=== PATIENT | female | born 1955 | race Caucasian/White ===

== ENCOUNTER 2021-04-17 16:59 | Inpatient (IN) ==
--- NOTE | 2021-04-17 17:52 | Emergency Department Note ---
Lower Extremity Injury HPI General Chief Complaint: Extremity Injury, Lower Stated Complaint: left leg pain Time Seen by Provider: 04/17/21 17:18 Source: patient Mode of arrival: EMS Limitations: no limitations History of Present Illness HPI Narrative: Narrative: Patient is a 66-year-old female who comes into the emergency department today with complaint of low back pain with radiculopathy symptoms traveling down the posterior side of her left leg. Patient reports that she fell at home onto concrete March 26, 2021 he went to [facility], and she reports that x-rays were obtained. She indicates that there is no fracture. She states that she received an injection of morphine and sent home with 2 pain pills that she already took. She continues to have sharp pain at the low back area with radiating pain following the L5 dermatome on the left side. She has not had any weakness. She denies any loss of control of bowel or bladder. Pain is aggravated with ambulation, flexion, and extension. Related Data Home Medications Medication Instructions Recorded Confirmed cholecalciferol (vitamin D3) MISCELLANE 12/24/15 02/03/16 citalopram 40 mg tablet 40 mg PO QDAY tab 12/24/15 02/03/16 hydroxychloroquine 200 mg tablet 200 mg PO QDAY tab 12/24/15 02/03/16 levothyroxine 75 mcg capsule 75 mcg PO QDAY 12/24/15 02/03/16 lisinopril 20 1 tab PO QDAY 12/24/15 02/03/16 mg-hydrochlorothiazide 25 mg tablet pantoprazole 20 mg tablet,delayed 20 mg PO QDAY 12/24/15 02/03/16 release promethazine 25 mg tablet 25 mg PO TID tab 12/24/15 02/03/16 tramadol 50 mg tablet 50 mg PO QDAY PRN tab 02/03/16 02/03/16 Allergies Allergy/AdvReac Type Severity Reaction Status Date / Time codeine Allergy Unknown Vomiting Verified 02/03/16 13:55 Review of Systems ROS ROS Narrative: Narrative: All systems ED: reviewed and negative except as stated. [facility] Narrative Patient History Narrative: Narrative: Medical/Surgical/Family History All Active Problems (Updated 04/17/21 @ 19:33 by Quentin Keith MD) Fracture of femoral neck, left (Acute) Arthralgia (Chronic) Alopecia (Chronic) Antinuclear factor positive (Chronic) Yeast infection of the vagina (Chronic) UTI (urinary tract infection) (Chronic) Gastroparesis (Chronic) White coat hypertension (Chronic) Systemic lupus erythematosus (Chronic) Rheumatoid arthritis (Chronic) Osteoporosis (Chronic) GERD (gastroesophageal reflux disease) (Chronic) Hypothyroidism (Chronic) Electrolyte imbalance (Chronic) Vitamin D deficiency (Chronic) Anxiety (Chronic) Depression (Chronic) Rash (Chronic) Leg weakness, bilateral (Chronic) Leg pain, bilateral (Chronic) Medical History (Updated 04/17/21 @ 19:33 by Quentin Keith MD) Alopecia Antinuclear factor positive Anxiety Arthralgia Depression Electrolyte imbalance Gastroparesis GERD (gastroesophageal reflux disease) Hypothyroidism Leg pain, bilateral Leg weakness, bilateral Osteoporosis Rash Rheumatoid arthritis Systemic lupus erythematosus UTI (urinary tract infection) Vitamin D deficiency White coat hypertension Yeast infection of the vagina Surgical History (Updated 09/23/20 @ 08:19 by [employer] [place]) History of section 1975, 1981, 1982 & 1988 Family History (Updated 12/24/15 @ 12:36 by Ya Hull) Mother Muscular wasting and disuse atrophy Father Muscular wasting and disuse atrophy Unknown Diabetes mellitus Alcoholism Social History Smoking Status: Never smoker Alcohol Intake Frequency: holiday/special occasion only Substance Use: does not use Exam Narrative Narrative: Narrative: General Limitations: no limitations General appearance: Present alert and in no apparent distress Head Head: Present atraumatic, normocephalic and normal inspection Eye Eye: Present normal appearance and PERRL; Absent scleral icterus ENT ENT: Present mucous membranes moist Neck Neck: Present full ROM; Absent tenderness Chest Chest: Present symmetric chest wall rise Respiratory Respiratory: Present normal lung sounds bilaterally; Absent respiratory distress, rales/crackles, wheezes, stridor, accessory muscle use and prolonged expiratory phase Cardiovascular Cardiovascular: Present regular rate and normal rhythm; Absent systolic murmur and diastolic murmur Adbominal Abdominal: Present soft; Absent distention and tenderness Extremities Extremities: Present normal inspection, full ROM, normal capillary refill and other (Pedal pulses 2+ bilaterally. Capillary refill less than 2 seconds.); Absent tenderness, pedal edema, pretibial edema, joint swelling, calf tenderness, cyanosis and clubbing Back Back: Present normal inspection, full ROM, tenderness (Tenderness with palpation around L3-L5 paraspinous muscles and the lumbar spine area. No ecchymosis or erythema.) and straight leg raise (L); Absent straight leg raise (R) Neurological Neurological: Present alert, oriented X3, CN II-XII intact and other (No clonus .); Absent motor sensory deficit Expanded Neurological Motor strength - LUE: 5/5 Motor strength - RUE: 5/5 Motor strength - LLE: 4/5 Motor strength - RLE: 5/5 SENSORY EXAM LOWER EXTREMITY: Normal: light touch SPINAL CORD FUNCTION: Absent saddle anesthesia Coma Scale Eye Opening: Spontaneous Coma Scale Motor Response: Obeys Commands Coma Scale Verbal Response: Oriented Coma Scale Total: 15 Skin Skin: Present warm (WNL), dry and normal color Course Vital Signs Vital signs: Vital Signs Temperature 98.1 F 04/17/21 17:03 Pulse Rate 98 H 04/17/21 17:03 Respiratory Rate 18 04/17/21 17:03 Blood Pressure 161/84 04/17/21 17:03 Pulse Oximetry (%) 97 04/17/21 17:03 Temperature 98.1 F 04/17/21 17:03 Pulse Rate 86 04/17/21 18:52 Respiratory Rate 18 04/17/21 17:03 Blood Pressure 129/81 04/17/21 17:46 Pulse Oximetry (%) 93 04/17/21 18:52 MDM MDM Narrative Medical decision making narrative: Narrative: Patient is a 66-year-old female with complaint of lower back pain and radiation down the left hip and leg. Patient had fell March 26, 2021 and went to [facility]. She came in to [facility] emergency department today as she feels that her pain is still continuing, and felt that she needed additional imaging for her back. I first proceeded with a CT scan of her lumbar spine without contrast for further evaluation, and on review of her CT scan I was able to see suspicious of fracture at the left hip. Ordered a left hip x- ray. The left hip x-ray shows that a fracture of the left femoral neck that is displaced with angulation. I was able to contact Dr. Collins who is on-call for orthopedics, and Dr. Collins would like patient admitted to [facility] with the hospitalist to admit the patient, and he would like patient to be n.p.o. at midnight for surgery tomorrow. I was able to speak with Dr. Keith who is the hospitalist on today. He agrees to admit the patient to [facility]. Patient's chest x-ray was ordered for preop surgical, and chest x-ray is normal. Patient has an EKG today that shows normal sinus rhythm with no acute coronary syndrome finding. Patient received 1 mg of IM Dilaudid upon arrival to the emergency department. Her pain was controlled. She is resting comfortably in room T3. She will be admitted to [facility]. Lab Data Result diagrams: 04/17/21 19:13 04/17/21 19:13 Radiology Data Radiology results narrative: Ordering Physician: Gurdeep Molina Date of Service: 04/17/21 Procedure(s): XR hip LT comp 2VW Accession Number(s): [id number] HISTORY: Fell with left hip pain FINDINGS: there is an acute transversely oriented fracture at the base the neck, where it transitions to the trochanters. There is moderate varus angulation. The femoral head remains normally aligned with the acetabulum. No other fracture is present. There is a sclerotic intramedullary lesion in the intertrochanteric region of the proximal left femur. It measures 1.6 x 2.6 cm. Fracture does not extend through this lesion. IMPRESSION: Fractured left femoral neck with moderate angulation deformity. Sclerotic intramedullary lesion in the intertrochanteric region. This is more likely benign than malignant. Enchondroma is suspected. Interpreted and Authenticated by: Juan Díaz 04/17/21 EKG Data EKG #1: EKG attestation: Yes There are no EKG findings of acute coronary syndrome and Yes This EKG will be read by digital traffic coordinator EKG shows normal: sinus rhythm Rate: normal Discharge Plan Patient/Caregiver Discharge Instructions Pt seen by MORTGAGE FUNDER/PA only: No Clinical Impression: Fracture of femoral neck, left Patient Disposition: Xfer As Inpt ([facility]) Follow up with: Kevin Santoyo ARNP [Primary Care Provider] - Prescriptions: No Action citalopram 40 mg tablet 40 mg PO QDAY RF: 0 pantoprazole 20 mg tablet,delayed release (DR/EC) 20 mg PO QDAY RF: 0 promethazine 25 mg tablet 25 mg PO TID RF: 0 lisinopril-hydrochlorothiazide 20-25 mg tablet 1 tab PO QDAY RF: 0 hydroxychloroquine 200 mg tablet 200 mg PO QDAY RF: 0 levothyroxine 75 mcg capsule 75 mcg PO QDAY RF: 0 cholecalciferol (vitamin D3) MISCELLANE RF: 0 tramadol 50 mg tablet 50 mg PO QDAY PRNRF: 0
[2021-04-17] MEDS ORDERED: HYDROmorphone 1 MG/ML SYRINGE IM ONE (17:53)
--- NOTE | 2021-04-17 19:02 | XRay Report ---
HISTORY: Fell with left hip pain FINDINGS: there is an acute transversely oriented fracture at the base the neck, where it transitions to the trochanters. There is moderate varus angulation. The femoral head remains normally aligned with the acetabulum. No other fracture is present. There is a sclerotic intramedullary lesion in the intertrochanteric region of the proximal left femur. It measures 1.6 x 2.6 cm. Fracture does not extend through this lesion. IMPRESSION: Fractured left femoral neck with moderate angulation deformity. Sclerotic intramedullary lesion in the intertrochanteric region. This is more likely benign than malignant. Enchondroma is suspected. Interpreted and Authenticated by: Juan Díaz 04/17/21
--- NOTE | 2021-04-17 19:06 | Cat Scan Report ---
History: Fell with low back pain TECHNIQUE: The spine was imaged without contrast in axial plane at 2.5 mm intervals. Sagittal and coronal reformats were created. The radiation exposure was limited using dose reduction technology. FINDINGS: No fracture or spondylolisthesis are present. There has 4 mm retrolisthesis of L1 posterior L2. Moderate disc space narrowing is present at T11-12 and T12-L1 with moderate narrowing at L1-2. There are posterior bulges and arthritis in the facet joints resulting in moderate stenosis of the central canal at L2-3, L3-4 and L4-5. There is also severe arthritis in the facets bilaterally at L5-S1 but there is no central canal stenosis at that level. There is mild stenosis of the neural foramina bilaterally at L3-4 and L4-5. No paraspinal mass or hematoma are present. IMPRESSION: No fracture Spinal canal stenosis at L2-3 L3-4 and L4-5 due to bulging discs and arthritis in the facets Gurdeep Molina was called with the report Interpreted and Authenticated by: Juan Díaz 04/17/21
--- NOTE | 2021-04-17 19:06 | XRay Report ---
HISTORY: Preop for repair fractured left hip FINDINGS: The lungs are clear. The heart, mediastinum, genevieve and pleura are normal. IMPRESSION: Normal chest. Interpreted and Authenticated by: Juan Díaz 04/17/21
[2021-04-17] MEDS ORDERED: traMADol 50 MG TABLET PO PRN ×2 (19:27→22:07)
--- NOTE | 2021-04-17 19:34 | Internal Med History&Physical ---
HPI History of Present Illness Patient information: Note initiated : 04/17/21 at 7:29 pm Service Date, if different from initiated Date: [] Patient: Paula Hollis a 66 y/o F admitted on for left leg pain. Chief Complaint: [left femoral neck fracture] History of present illness: Ms. Hollis is a 66 year old F history of lupus, rheumatoid arthritis, GERD, hypothyroidism, depressions, presenting with left hip fractures. She had a 4 March 26 and ever since she presented to [facility] ED multiple times and no diagnosis of any bone fractures was made. Today she presented to our ED for continuation of pain and x-ray of the hip showing that she has a left femoral neck fracture. Orthopedic surgeons Dr. Collins was consulted who agreed to take patient to the OR on April 18 for surgical fixation. Patient is currently denying of any pain after Dilaudid being given prior to interview. Constitutional Constitutional: Absent chills, excessive sweating, fatigue, fever(s) and weakness EENT Eyes: Absent blurry vision, change in vision, loss of vision and other visual disturbances Ears: Absent decreased hearing and tinnitus Nose, mouth and throat: Absent abnormal hearing, dry mouth, headache(s), nasal congestion and sore throat Cardiovascular Cardiovascular: Absent chest pain, chest pain at rest, edema, irregular heart rhythm and palpatations Respiratory Respiratory: Absent cough, dyspnea and wheezing Gastrointestinal Gastrointestinal: Absent abdominal pain, constipation, diarrhea, nausea and vomiting Musculoskeletal Musculoskeletal: Absent back pain, deformity, limited range of motion, muscle cramps, muscle weakness and numbness Integumentary Integumentary: Absent lesions, rash and wounds Neurological Neurological: Absent focal weakness, headache(s) and numbness Psychiatric Psychiatric: Absent anxiety, depression and hallucinations PFSH PFSH All Active Problems (Updated 04/17/21 @ 19:33 by Quentin Keith MD) Fracture of femoral neck, left (Acute) Arthralgia (Chronic) Alopecia (Chronic) Antinuclear factor positive (Chronic) Yeast infection of the vagina (Chronic) UTI (urinary tract infection) (Chronic) Gastroparesis (Chronic) White coat hypertension (Chronic) Systemic lupus erythematosus (Chronic) Rheumatoid arthritis (Chronic) Osteoporosis (Chronic) GERD (gastroesophageal reflux disease) (Chronic) Hypothyroidism (Chronic) Electrolyte imbalance (Chronic) Vitamin D deficiency (Chronic) Anxiety (Chronic) Depression (Chronic) Rash (Chronic) Leg weakness, bilateral (Chronic) Leg pain, bilateral (Chronic) Medical History (Updated 04/17/21 @ 19:33 by Quentin Keith MD) Alopecia Antinuclear factor positive Anxiety Arthralgia Depression Electrolyte imbalance Gastroparesis GERD (gastroesophageal reflux disease) Hypothyroidism Leg pain, bilateral Leg weakness, bilateral Osteoporosis Rash Rheumatoid arthritis Systemic lupus erythematosus UTI (urinary tract infection) Vitamin D deficiency White coat hypertension Yeast infection of the vagina Surgical History (Updated 09/23/20 @ 08:19 by [employer] [place]) History of section 1975, 1981, 1982 & 1988 Family History (Updated 12/24/15 @ 12:36 by Ya Hull) Mother Muscular wasting and disuse atrophy Father Muscular wasting and disuse atrophy Unknown Diabetes mellitus Alcoholism Social History marital status: single occupational status: retired physical activity: none alcohol intake frequency: holiday/special occasion only substance use type: does not use MEDS/ALLERGIES Home Medications and Allergies Home Medications Medication Instructions Recorded Confirmed Type cholecalciferol (vitamin D3) MISCELLANE 12/24/15 02/03/16 History citalopram 40 mg tablet 40 mg PO QDAY tab 12/24/15 02/03/16 History hydroxychloroquine 200 mg tablet 200 mg PO QDAY tab 12/24/15 02/03/16 History levothyroxine 75 mcg capsule 75 mcg PO QDAY 12/24/15 02/03/16 History lisinopril 20 1 tab PO QDAY 12/24/15 02/03/16 History mg-hydrochlorothiazide 25 mg tablet pantoprazole 20 mg tablet,delayed 20 mg PO QDAY 12/24/15 02/03/16 History release promethazine 25 mg tablet 25 mg PO TID tab 12/24/15 02/03/16 History tramadol 50 mg tablet 50 mg PO QDAY PRN tab 02/03/16 02/03/16 History Allergies Allergy/AdvReac Type Severity Reaction Status Date / Time codeine Allergy Unknown Vomiting Verified 02/03/16 13:55 EXAM Constitutional Vitals: Temp Pulse Resp BP Pulse Ox 36.7 C 86 18 129/81 93 04/17/21 17:03 04/17/21 18:52 04/17/21 17:03 04/17/21 17:46 04/17/21 18:52 General appearance: cooperative and no acute distress Head Head exam: Present atraumatic and normocephalic Eye Eye exam: Present EOMI and PERRL ENT ENT exam: Present mucous membranes moist, normal exam and normal external ear exam Neck Neck exam: Present normal inspection; Absent lymphadenopathy, tenderness and thyromegaly Respiratory Respiratory exam: Absent accessory muscle use, respiratory distress and wheezes Cardiovascular Cardiovascular exam: Present normal rate and rhythm; Absent JVD GI/Abdominal GI/Abdominal exam: Present normal bowel sounds and soft; Absent organomegaly and tenderness Extremities Exam Extremities exam: Present normal capillary refill and tenderness; Absent full ROM and normal inspection Additional comments: Left hip ROMs limited by pain Left lateral hip tenderness to palpation. Neurological Exam Neurological exam: Present alert, CN II-XII intact and oriented X3; Absent motor sensory deficit Psychiatric Psychiatric exam: Present normal affect and normal mood; Absent anxious and depressed Skin Skin exam: Present dry and intact DATA Data Completed and Pending Labs: Labs from last 24 hours 04/17/21 04/17/21 19:13 19:13 WBC Pending RBC Pending Hgb Pending Hct Pending MCV Pending MCH Pending MCHC Pending RDW Pending Plt Count Pending MPV Pending Neut % (Auto) Pending Sodium Pending Potassium Pending Chloride Pending Carbon Dioxide Pending Anion Gap Pending BUN Pending Creatinine Pending GFR Calculation Pending Glucose Pending Calcium Pending Total Bilirubin Pending AST Pending ALT Pending Alkaline Phosphatase Pending Total Protein Pending Albumin Pending Globulin Pending Albumin/Globulin Ratio Pending A/P Assessment and plan (1) Systemic lupus erythematosus: Status: Chronic (2) Rheumatoid arthritis: Status: Chronic (3) GERD (gastroesophageal reflux disease): Status: Chronic (4) Hypothyroidism: Status: Chronic (5) Depression: Status: Chronic (6) Fracture of femoral neck, left: Status: Acute Narrative A/P Narrative: Assessment and Plans: 1. Left femoral neck fracture: Admit to inpatient med surg Dr. Collins notified, will take her to OR on 04/18 Bedrest for now Regular diet thne NPO after midnight Tramadol PRN moderate pain Dilaudid IV PRN severe pain Physical therapy Occupational therapy 2. h/o Depression: Citalopram 3. GERD: Continue oral PPI 4. h/o SLE and rheumatoid arthritis: Plaquenil 5. Hypothyroidism: Continue oral thyroid replacement therapy GI ppx: Continue oral PPI DVT ppx: SCDs Code status: Full Prognosis: Stable Disposition: inpatient med surg Time Spent With Patient Time: Total time spent is greater than 50% in coordination of care (as documented) at patient's floor/unit and/or counseling patient: Total time spent with greater than 50% in coordination of care (as documented) at patient's floor/unit and/or counseling patient:: 25 - 35 minutes
[2021-04-17 19:44] LABS: Basophils # (Auto) 0.02 K/mcL (0.00-0.30); Basophils % (Auto) 0.2 % (0.0-2.0); Eosinophils # (Auto) 0.04 K/mcL (0.00-0.70); Eosinophils % (Auto) 0.4 % (0.0-7.0); Hemoglobin 11.3 g/dL (11.2-15.7); Lymphocytes # (Auto) 1.64 K/mcL (1.50-4.80); Lymphocytes % (Auto) 18.3 % (15.5-49.0); Mean Cell Volume 91.4 fL (80.0-100.0); Mean Corpuscular HGB Conc 34.2 g/dL (31.0-36.0); Mean Platelet Volume 8.5 fL (7.4-10.4); Monocytes # (Auto) 0.98 K/mcL (0.10-0.90); Monocytes % (Auto) 10.9 % (1.0-12.0); Neutrophils % (Auto) 70.2 % (38.0-78.0); Platelet Count 435 K/mcL (140-440); RBC 3.61 M/mcL (3.59-5.38); Red Cell Distribution Width 14.3 % (11.5-14.5)
[2021-04-17 20:15] LABS: ALT/SGPT 17 U/L (<40); AST/SGOT 19 U/L (<32); Albumin 3.9 gm/dL (3.2-5.2); Albumin/Globulin Ratio 1.2 (1.0-2.3); Alkaline Phosphatase 78 U/L (39-117); Bilirubin,Total 0.5 mg/dL (0.1-1.0); Blood Urea Nitrogen 28 mg/dL (8-23); Calcium 8.9 mg/dL (8.6-10.4); Carbon Dioxide 25 mmol/L (22-30); Chloride 93 mmol/L (96-108); Globulin 3.3 gm/dL (2.2-3.7); Glomerular Filtration Rate 59; Glucose 106 mg/dL (70-105)
[2021-04-17] MEDS ORDERED: PROMETHAZINE 25 MG TABLET PO SCH (21:00)
[2021-04-17] MEDS ORDERED: ACETAMINOPHEN 325 MG TABLET PO PRN (22:07)
[2021-04-17] MEDS: 0.9 % SODIUM CHLORIDE 1,000 ML IV SCH (22:22)
[2021-04-17] MEDS: 0.9 % SODIUM CHLORIDE 10 ML SYRINGE IV SCH (22:25)
[2021-04-18] MEDS: DOCUSATE SODIUM 100 MG CAPSULE PO SCH ×5 (00:02→21:30)
[2021-04-18] MEDS: SENNOSIDES 1 TABLET PO SCH ×2 (00:02→21:28)
[2021-04-18] MEDS: HYDROmorphone 1 MG/ML SYRINGE IV PRN ×3 (00:02→15:25)
[2021-04-18] MEDS ORDERED: HYDROmorphone 1 MG/ML SYRINGE ONE ×2 (00:04→04:57)
[2021-04-18] MEDS: CYCLOBENZAPRINE 10 MG TABLET PO PRN ×2 (00:35→21:42)
[2021-04-18] MEDS: 0.9 % SODIUM CHLORIDE 10 ML SYRINGE IV SCH ×3 (04:58→21:30)
[2021-04-18] MEDS ORDERED: SCOPOLAMINE 1 PATCH PATCH TOPICAL PRN (07:00)
[2021-04-18] MEDS ORDERED: IPRATROPIUM/ALBUTEROL 3 ML AMPUL.NEB NEB PRN ×2 (07:00→10:22)
[2021-04-18 07:25] LABS: Appearance,Urine CLEAR (Clear); Bilirubin,Urine Negative (Negative); Color,Urine YELLOW; Culture Indicated,Urine No; Glucose,Urine (UA) Negative (Negative); Ketones,Urine Negative (Negative); Leukocyte Esterase,Urine Negative /ug (Negative); Mucus,Urine FEW /hpf; Nitrate,Urine Negative (Negative); Protein,Urine Negative (Negative); Specific Gravity,Urine 1.019 (1.000-1.035); Urine Blood 0.03 mg/dL (Negative); Urine Hyaline Cast 3 /lph (0-2); Urine RBC 22 /hpf (0-3); Urine Squamous Epithelial Cell < 1 /hpf (0-4); Urine WBC 6 /hpf (0-4); Urobilinogen,Urine Negative
[2021-04-18] MEDS: HYDROXYCHLOROQUINE 200 MG TABLET PO SCH (08:31)
[2021-04-18] MEDS: HYDROCHLOROTHIAZIDE 25 MG TABLET PO SCH (08:31)
[2021-04-18] MEDS: CITALOPRAM 20 MG TABLET PO SCH (08:31)
[2021-04-18] MEDS: LISINOPRIL 20 MG TABLET PO SCH (08:32)
[2021-04-18] MEDS ORDERED: POLYETHYLENE GLYCOL 3350 17 GM PACKET PO PRN (08:41)
[2021-04-18] MEDS ORDERED: BENZOCAINE/MENTHOL 1 LOZENGE PO PRN (08:41)
[2021-04-18] MEDS ORDERED: MAGNESIUM HYDROXIDE 30 ML ORAL.SUSP PO PRN (08:41)
[2021-04-18] MEDS ORDERED: METHOCARBAMOL 1,000 MG/10 ML VIAL IV PRN ×2 (08:52→10:22)
[2021-04-18] MEDS ORDERED: morphine 4 MG/ML VIAL IV PRN (08:52)
[2021-04-18] MEDS ORDERED: HYDROXYCHLOROQUINE 200 MG TABLET PO SCH (09:00)
[2021-04-18] MEDS ORDERED: CITALOPRAM 40 MG PO SCH (09:00)
[2021-04-18] MEDS ORDERED: ceFAZolin 2 GM in DEXTROSE 5% IN WATER 50 ML IV SCH ×2 (09:00)
[2021-04-18] MEDS ORDERED: LEVOTHYROXINE 75 MCG PO SCH (09:00)
[2021-04-18] MEDS ORDERED: LISINOPRIL HYDROCHLOROTHIAZIDE PO SCH (09:00)
[2021-04-18] MEDS ORDERED: NON FORMULARY MEDICATION 1 DOSE MISCELL (Lisinopril-Hydrochlorothiazide 20-25 mg tablet) PO SCH (09:00)
[2021-04-18] MEDS ORDERED: MAGNESIUM SULFATE 2 GM/50 ML BAG IV ONE (09:10)
[2021-04-18] MEDS ORDERED: KETAMINE 50 MG/ML Syringe (ANEST) IV ONE (09:10)
[2021-04-18] MEDS ORDERED: GLYCOPYRROLATE 0.2 MG/ML VIAL IV ONE (09:10)
[2021-04-18] MEDS ORDERED: ONDANSETRON 4 MG/2 ML VIAL ONE (09:10)
[2021-04-18] MEDS ORDERED: TRANEXAMIC ACID 1,000 MG/10 ML VIAL ONE (09:10)
[2021-04-18] MEDS ORDERED: LIDOCAINE HCL/PF 100 MG/5 ML SYRINGE IV ONE (09:10)
[2021-04-18] MEDS ORDERED: fentaNYL 100 MCG/2 ML VIAL IV ONE (09:10)
[2021-04-18] MEDS ORDERED: PROPOFOL 200 MG/20 ML VIAL IV ONE (09:10)
[2021-04-18] MEDS ORDERED: PHENYLephrine 1 MG/10 ML SYRINGE (ANEST) ONE (09:10)
[2021-04-18] MEDS ORDERED: DEXAMETHASONE 10 MG/ML VIAL ONE (09:10)
[2021-04-18] MEDS ORDERED: MIDAZOLAM 2 MG/2 ML VIAL ONE (09:10)
--- NOTE | 2021-04-18 10:14 | Internal Med Progress Note ---
SUBJECTIVE Subjective Patient information: Note initiated : 04/18/21 at 10:11 am Service Date, if different from initiated Date: [] Patient: Paula Hollis 66 y/o F admitted on 04/17/21 for left leg pain. Chief Complaint: [Left femoral neck fracture] Interval history: History of present illness: Ms. Hollis is a 66 year old F history of lupus, rheumatoid arthritis, GERD, hypothyroidism, depressions, presenting with left hip fractures. She had a 4 March 26 and ever since she presented to [facility] ED multiple times and no diagnosis of any bone fractures was made. Today she presented to our ED for continuation of pain and x-ray of the hip showing that she has a left femoral neck fracture. Orthopedic surgeons Dr. Collins was consulted who agreed to take patient to the OR on April 18 for surgical fixation. Patient is currently denying of any pain after Dilaudid being given prior to interview. 04/18: Surgery today morning by Dr. Collins. Subjective not obtained due to the fact that patient is currently in the OR. Constitutional Vitals: Vital Signs Temp Pulse Resp BP Pulse Ox 36.1 C L 84 20 125/75 93 04/18/21 07:09 04/18/21 07:09 04/18/21 07:09 04/18/21 07:09 04/18/21 07:09 Period Temp Pulse Resp BP Sys/Hurley Pulse Ox Last 24 Hr 36.1 C-36.7 C 82-98 16-20 107-161/56-84 90-97 Intake and Output 04/17/21 04/18/21 04/18/21 21:59 05:59 13:59 Intake Total 50 Output Total 950 Balance -950 50 Weight 63.503 kg 70.534 kg Intake & Output: Intake & Output 04/17/21 04/18/21 04/18/21 21:59 05:59 13:59 Intake Total 50 Output Total 950 Balance -950 50 Weight 63.503 kg 70.534 kg Intake: IV 50 Ancef 2 gm In Dextrose 5% in 50 Water 50 ml @ 100 mls/hr IV PREOP [facility] Rx#:[id number] Output: Urine Catheter Amount 950 Other: Urine Appearance Clear Uretheral (Duran) Clear Clear Urine Color Bright Yellow Uretheral (Duran) Pale Bright Yellow Urine Odor Normal Uretheral (Duran) Normal Exam: Defer OBJ DATA Labs CBC & Chem 7: 04/17/21 19:13 04/17/21 19:13 Labs: Abnormal Lab Results 04/18/21 04/17/21 04/17/21 00:10 19:13 19:13 Hct 33.0 L [place] # (Auto) 0.98 H Sodium 131 L Chloride 93 L BUN 28 H Glucose 106 H Urine RBC 22 H Urine WBC 6 H Hyaline Casts 3 H Urine Mucus Few A Meds: Medications Acetaminophen (Acetaminophen 325 Mg Tablet) 650 mg PO Q6HP PRN; Protocol PRN Reason: Per Pain Protocol/Fever > 101 Hydrocodone Bitart/Acetaminophen (Hydrocodone/Apap 7.5/325mg Tablet) 0 tab PO Q4HP PRN; Protocol PRN Reason: Per Pain Protocol Albuterol/Ipratropium (Ipratropium/Albuterol 3 Ml Ampul.Neb) 3 ml NEB ONCE PRN PRN Reason: Shortness Of Breath Stop: 04/18/21 15:00 Cefazolin Sodium (Cefazolin 1 Gm Vial) 2 gm IV Q8H [facility] Stop: 04/19/21 01:01 Citalopram Hydrobromide (Citalopram 20 Mg Tablet) 40 mg PO DAILY [facility] Last Admin: 04/18/21 08:31 Dose: 40 mg Documented by: Cyclobenzaprine HCl (Cyclobenzaprine 10 Mg Tablet) 10 mg PO Q6HP PRN PRN Reason: Muscle Spasm Last Admin: 04/18/21 00:35 Dose: 10 mg Documented by: Docusate Sodium (Docusate Sodium 100 Mg Capsule) 100 mg PO BID [facility] Last Admin: 04/18/21 07:56 Dose: Not Given Documented by: Docusate Sodium (Docusate Sodium 100 Mg Capsule) 100 mg PO BID [facility] Enoxaparin Sodium (Enoxaparin 30 Mg/0.3 Ml Syringe) 30 mg SQ BID [facility] Hydrochlorothiazide (Hydrochlorothiazide 25 Mg Tablet) 25 mg PO DAILY [facility] Last Admin: 04/18/21 08:31 Dose: 25 mg Documented by: Hydromorphone HCl (Hydromorphone 1 Mg/Ml Syringe) 1 mg IV Q2HP PRN; Protocol PRN Reason: Per Pain Protocol Last Admin: 04/18/21 04:57 Dose: 1 mg Documented by: Hydroxychloroquine Sulfate (Hydroxychloroquine 200 Mg Tablet) 200 mg PO QDAY [facility] Last Admin: 04/18/21 08:31 Dose: 200 mg Documented by: Sodium Chloride (Sodium Chloride 0.9%) 1,000 mls @ 100 mls/hr IV .Q10H [facility] Last Admin: 04/17/21 22:22 Dose: 100 mls/hr Documented by: Cefazolin Sodium 2 gm/ (Dextrose) 50 mls @ 100 mls/hr IV PREOP [facility]; Protocol Stop: 04/18/21 13:00 Last Infusion: 04/18/21 09:45 Dose: Infused Documented by: Lactated Ringer's (Lactated Ringers) 1,000 mls @ 75 mls/hr IV .[id number] [facility] Ketorolac Tromethamine (Ketorolac 15 Mg/Ml Vial) 15 mg IV Q6HP PRN; Protocol PRN Reason: Per Pain Protocol Stop: 04/20/21 08:54 Levothyroxine Sodium (Levothyroxine 75 Mcg Tablet) 75 mcg PO QAMAC [facility] Lisinopril (Lisinopril 20 Mg Tablet) 20 mg PO DAILY [facility] Last Admin: 04/18/21 08:32 Dose: 20 mg Documented by: Magnesium Hydroxide (Magnesium Hydroxide 30 Ml Oral.Susp) 30 ml PO BIDP PRN PRN Reason: Constipation Methocarbamol (Methocarbamol 1,000 Mg/10 Ml Vial) 750 mg IV Q6HP PRN PRN Reason: Muscle Spasm Morphine Sulfate (Morphine 4 Mg/Ml Vial) 0 mg IV Q1HP PRN; Protocol PRN Reason: Per Pain Protocol Non-Formulary Medication (Pantoprazole) 20 mg PO QDAY [facility] Ondansetron HCl (Ondansetron 4 Mg/2 Ml Vial) 4 mg IV Q6HP PRN PRN Reason: Nausea And Vomiting Polyethylene Glycol (Polyethylene Glycol 3350 17 Gm Packet) 17 gm PO DAILYP PRN PRN Reason: Constipation Scopolamine (Scopolamine 1 Patch Patch) 1 patch TOPICAL PREOP PRN PRN Reason: Nausea And Vomiting Stop: 04/18/21 15:00 Senna (Sennosides 1 Tablet) 2 tab PO HS [facility] Last Admin: 04/18/21 00:02 Dose: Not Given Documented by: Sodium Chloride (0.9 % Sodium Chloride 10 Ml Syringe) 10 ml IV Q8 [facility] Last Admin: 04/18/21 04:58 Dose: Not Given Documented by: Throat Lozenges (Benzocaine/Menthol 1 Lozenge) 1 lozenge PO PRN PRN PRN Reason: Sore Throat Tramadol HCl (Tramadol 50 Mg Tablet) 50 mg PO QDAY PRN; Protocol PRN Reason: PAIN LEVEL > 6 A/P Assessment and plan (1) Systemic lupus erythematosus: Status: Chronic (2) Rheumatoid arthritis: Status: Chronic (3) GERD (gastroesophageal reflux disease): Status: Chronic (4) Hypothyroidism: Status: Chronic (5) Depression: Status: Chronic (6) Fracture of femoral neck, left: Status: Acute Narrative A/P Narrative: Assessment and Plans: 1. Left femoral neck fracture: Stays in inpatient med surg Dr. Collins currently performing surgery on patient Activity after surgery as per Dr. Collins Tramadol PRN moderate pain Dilaudid IV PRN severe pain Physical therapy Occupational therapy 2. h/o Depression: Citalopram 3. GERD: Continue oral PPI 4. h/o SLE and rheumatoid arthritis: Plaquenil 5. Hypothyroidism: Continue oral thyroid replacement therapy GI ppx: Continue oral PPI DVT ppx: SCDs Code status: Full Prognosis: Stable Disposition: inpatient med surg Time Spent With Patient Time: Total time spent is greater than 50% in coordination of care (as documented) at patient's floor/unit and/or counseling patient: QUALITY VTE Deep Vein Thrombosis/Pulmonary Embolism Present on Admission: No
[2021-04-18] MEDS ORDERED: ePHEDrine 50 MG/ML AMPUL IV PRN (10:22)
[2021-04-18] MEDS ORDERED: MEPERIDINE 25 MG/ML VIAL IV PRN (10:22)
[2021-04-18] MEDS ORDERED: ONDANSETRON 4 MG/2 ML VIAL IV PRN (10:22)
[2021-04-18] MEDS ORDERED: ACETAMINOPHEN 1,000 MG/100 ML BAG IV ONE (10:22)
--- NOTE | 2021-04-18 10:26 | Discharge Plan ---
Discharge Plan Patient/Caregiver Discharge Instructions Activity: other Diet: Regular Diet Activity Restrictions/Additional Instructions: 50 percent WB left leg Prescriptions: New hydrocodone-acetaminophen 7.5-325 mg tablet 1 tab PO Q4H PRN (Reason: pain) Qty: 60 RF: 0 aspirin 81 mg tablet,chewable 81 mg PO BID Qty: 60 RF: 0 No Action citalopram 40 mg tablet 40 mg PO QDAY RF: 0 pantoprazole 20 mg tablet,delayed release (DR/EC) 20 mg PO QDAY RF: 0 promethazine 25 mg tablet 25 mg PO TIDP PRN (Reason: Nausea) RF: 0 lisinopril-hydrochlorothiazide 20-25 mg tablet 1 tab PO QDAY RF: 0 hydroxychloroquine 200 mg tablet 200 mg PO QDAY RF: 0 Follow Up Plan Follow up with: Kevin Santoyo ARNP [Primary Care Provider] - Patient Disposition: Home, Self-Care Discharge Orders: Discharge Order (Routine); Ordered 04/21/21 Ordered By: Greyson Collins
[2021-04-18] MEDS ORDERED: LACTATED RINGERS 1,000 ML IV SCH (10:30)
--- NOTE | 2021-04-18 10:31 | History and Physical Report ---
DATE OF ADMISSION: 04/17/2021 CHIEF COMPLAINT: Left hip pain. HISTORY OF PRESENT ILLNESS: Ms. Hollis is a 66-year-old female with a history of lupus, rheumatoid arthritis, GERD, hypothyroidism, and depression who presents to the emergency room yesterday with left hip pain. She was evaluated and found to have a left hip fracture. The injury originally occurred on the 03/10/2021. She obtained an x-ray yesterday that showed evidence of a left femoral neck fracture. Dr. Collins was consulted and upon evaluation today, the patient is resting comfortably, but does describe pain in her left hip. She denies any weakness, numbness, tingling or any other acute symptoms. REVIEW OF SYSTEMS: A 10-point system was reviewed and is negative except as documented in the HPI. PAST MEDICAL HISTORY: 1. Alopecia. 2. Antinuclear factor positive. 3. Anxiety. 4. Arthralgia. 5. Depression. 6. Vit D deficiency 7. Gastroparesis. 8. GERD. 9. Hypothyroidism. 10. Leg pain, bilateral. 11. Leg weakness, bilateral. 12. Osteoporosis. 13. Rash. 14. Rheumatoid arthritis. 15. Systemic lupus erythematosus. 16. UTI. PAST SURGICAL HISTORY: History of section. SOCIAL HISTORY: She is single. Her occupational status is retired. No tobacco use. MEDICATIONS: Cholecalciferol, citalopram, hydroxychloroquine, levothyroxine, lisinopril, pantoprazole, promethazine, tramadol. ALLERGIES: CODEINE. PHYSICAL EXAMINATION: HEAD: Atraumatic, normocephalic. EARS, EYES, NOSE AND THROAT: Eyes: Normal. Pupils are equal, round and reactive to light and accommodate. Ears: No discharge. Nose, [place] and Throat: Moist mucous membranes. NECK: Soft, supple. no lymphadenopathy, no tenderness. CHEST: Clear to auscultation bilaterally. CARDIAC: Regular rate and rhythm. No murmurs, rubs or gallops. ABDOMEN: Soft, no tenderness. No hepatosplenomegaly, no masses. MUSCULOSKELETAL: No pain in the back or legs but there is pain in the left hip with palpation. There is ecchymosis over the left hip and mild swelling. She is neurovascularly intact in the entire left lower extremity. No calf tenderness bilaterally. SKIN: Intact. No abrasions, infections or rashes. NEUROVASCULAR: Alert and oriented x 3. PSYCH: Normal affect. IMAGING: X-ray of the left hip revealed evidence of a basicervical hip fracture of the left femoral neck. ASSESSMENT: Displaced basicervical fracture of the left femoral neck. PLAN: We discussed treatment options including the risks and benefits of surgery and the patient has elected to proceed. We will plan on an a left hip hemiarthroplasty and the patient will be admitted after surgery for pain control and physical therapy. Discharge in the next 1 or 2 days and follow up with [facility] in the next 1 or 2 weeks for postoperative recheck. KT:andi Job ID: [id number] Doc ID: [id number] HAILEE Schneider
--- NOTE | 2021-04-18 10:44 | Operative Note ---
Operative Note Operative Note: Pre-operative diagnosis: Left hip basicervical femoral neck fracture Postoperative diagnosis: Same Procedure: Left hip short IM nail fixation Implants: Synthes short TFN 125 x11mm degrees with 85 mm cephalad screw and 34 mm distal locking screw Findings: Same as above, hypoplastic greater trochanter Complications: Nil Estimated Blood loss: 250 cc Assist: Leonardo Gordon DOS: April 18, 2021 Clinical note: The patient continues to suffer from the above mentioned diagnosis. She had a fall and had subsequent pain in her hip. She presented to an outside emergency department multiple times and there was no diagnosed with hip fracture. However when she presented to [facility] hip fracture was found. Surgery in the form of hip fixation with IM nailing was offered to the patient. Advantages of surgery include more rapid mobilization and bone healing. Risks of surgery such as heart attack stroke infection or implant failure was discussed also with the patient. Patient agreed to the procedure aware and understanding of the risk. H&P: The patient was met outside the operating room and symptoms were reviewed and a physical exam performed. The patient demonstrated ongoing symptoms and signs as previously discussed. Risk versus benefits of the procedure were again discussed. Patient wished to proceed with the surgery aware and understanding of these risks. The operative site was marked. Patient was brought into the operating room and prepped and draped in the usual fashion supine on traction table. Traction was applied and the hip was imaged with fluoroscopy. This confirmed good reduction of the fracture both in AP and lateral views. Began by making incision directly superior to the GT. A starting wire was introduced with the help of a starting awl directly on the tip of the GT using fluoroscopy to confirm trajectory. The canal was then opened with an entry reamer. A short IM nail of size scribed above was then introduced. We were unable to advance nail without reaming. Therefore a long guidewire was introduced and we reamed sequentially until 1.5 mm above the above selected nail size. This was advanced with a mallet tail the trajectory of the cephalad screw is in line with the center of the femoral head. Guidewire was introduced to the center of the femoral head within 25 mm combined on both AP and lateral views of the apex. Of the using the guide attached to the nail incision was made on the lateral femur, the lateral femoral cortex opened through the trocar, and the femoral neck was drilled in the usual fashion. Cephalad screw was then inserted through the trocar. Again using the guide a distal locking screw was inserted in the usual fashion securing the distal portion of the nail. Final fluoroscopy views were performed confirming the hip remained well reduced in the nail and locking screws were in good position overall, however the top of the nail remained proud relative to the greater trochanter by approximately 1- 1/2 cm. However there is no way of sinking the nail deeper this would have changed the position of the cephalad screw in the head which is thought to be the more important parameter. Nail position was accepted. After compression there is also some apex anterior deformity noted in the anterior neck, but again we had achieved good compression through the screw and I do not feel that this could be significantly improved upon. If in the future the patient has pain about the greater trochanter and the fracture is healed consideration will be given to removing the nail. The wounds were then irrigated. They were closed with a heavy Vicryl suture for the deep layers followed by Monocryl and bety for the skin. A bulky dressing was applied. Patient was brought to PACU in good condition. They can be weightbearing as tolerated on that leg should follow-up with myself or the PA in 2 weeks time at [facility] for wound check and staple removal.
[2021-04-18] MEDS: fentaNYL 100 MCG/2 ML VIAL IV PRN ×2 (10:45→10:50)
[2021-04-18] MEDS: 0.9 % SODIUM CHLORIDE 1,000 ML IV SCH (11:15)
[2021-04-18] MEDS: LACTATED RINGERS 1,000 ML IV SCH (11:47)
[2021-04-18] MEDS: HYDROCODONE/APAP 7.5/325MG TABLET PO PRN (14:18)
[2021-04-18] MEDS: ONDANSETRON 4 MG/2 ML VIAL IV PRN (14:23)
--- NOTE | 2021-04-18 14:58 | XRay Report ---
HISTORY: FINDINGS: IMPRESSION: 1.1 minute of fluoroscopy time was used. Interpreted and Authenticated by: Juan Díaz 04/18/21
[2021-04-18] MEDS: KETOROLAC 15 MG/ML VIAL IV PRN (15:26)
--- NOTE | 2021-04-18 15:33 | XRay Report ---
HISTORY: Postop reduction of the left proximal femur fracture FINDINGS: The fracture through the base of the femoral neck has been reduced. It is now anatomically aligned with the trochanteric region using a femoral jennifer and crossing screw. The varus angulation seen preoperatively has been corrected. Femoral head is normally centered within the acetabulum. No other fracture is present. IMPRESSION: good alignment following open reduction internal fixation of the fracture proximal left femur Interpreted and Authenticated by: Juan Díaz 04/18/21
[2021-04-18] MEDS: ceFAZolin 1 GM VIAL IV SCH (17:05)
--- NOTE | 2021-04-18 18:55 | EKG ---
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
[2021-04-18] MEDS: ENOXAPARIN 30 MG/0.3 ML SYRINGE SQ SCH (21:29)
[2021-04-19] MEDS: LACTATED RINGERS 1,000 ML IV SCH (00:06)
[2021-04-19] MEDS: ceFAZolin 1 GM VIAL IV SCH (00:28)
[2021-04-19] MEDS: HYDROCODONE/APAP 7.5/325MG TABLET PO PRN ×3 (04:31→19:16)
[2021-04-19] MEDS: 0.9 % SODIUM CHLORIDE 10 ML SYRINGE IV SCH ×3 (04:32→21:15)
[2021-04-19] MEDS: ONDANSETRON 4 MG/2 ML VIAL IV PRN ×2 (04:34→19:20)
[2021-04-19] MEDS: HYDROXYCHLOROQUINE 200 MG TABLET PO SCH (07:47)
[2021-04-19] MEDS: CYCLOBENZAPRINE 10 MG TABLET PO PRN ×2 (07:47→21:24)
[2021-04-19] MEDS: LEVOTHYROXINE 75 MCG TABLET PO SCH (07:47)
[2021-04-19] MEDS: CITALOPRAM 20 MG TABLET PO SCH (07:47)
[2021-04-19] MEDS: DOCUSATE SODIUM 100 MG CAPSULE PO SCH ×2 (07:47→21:13)
[2021-04-19] MEDS: PANTOPRAZOLE 40 MG TABLET PO SCH (07:47)
[2021-04-19] MEDS: LISINOPRIL 20 MG TABLET PO SCH (07:48)
[2021-04-19] MEDS: HYDROCHLOROTHIAZIDE 25 MG TABLET PO SCH (07:48)
[2021-04-19 08:15] LABS: INR 1.1 (0.9-1.1); Prothrombin Time 14.3 sec (11.9-14.5)
[2021-04-19 08:29] LABS: Hematocrit 27.6 % (34.1-44.9); Hemoglobin 9.2 g/dL (11.2-15.7)
[2021-04-19] MEDS: KETOROLAC 15 MG/ML VIAL IV PRN ×2 (09:02→19:17)
[2021-04-19] MEDS: ENOXAPARIN 30 MG/0.3 ML SYRINGE SQ SCH ×2 (09:03→21:14)
--- NOTE | 2021-04-19 09:29 | Internal Med Progress Note ---
SUBJECTIVE Subjective Patient information: Note initiated : 04/19/21 at 9:27 am Service Date, if different from initiated Date: [] Patient: Paula Hollis a 66 y/o F admitted on 04/17/21 for left leg pain. Chief Complaint: [left hip fracture ] Interval history: History of present illness: Ms. Hollis is a 66 year old F history of lupus, rheumatoid arthritis, GERD, hypothyroidism, depressions, presenting with left hip fractures. She had a 4 March 26 and ever since she presented to [facility] ED multiple times and no diagnosis of any bone fractures was made. Today she presented to our ED for continuation of pain and x-ray of the hip showing that she has a left femoral neck fracture. Orthopedic surgeons Dr. Collins was consulted who agreed to take patient to the OR on April 18 for surgical fixation. Patient is currently denying of any pain after Dilaudid being given prior to interview. 04/18: Surgery today morning by Dr. Collins. Subjective not obtained due to the fact that patient is currently in the OR. 04/19: s/p left hip short IM nail fixation by Dr. Collins on 04/18. Denies any left hip pain. Denies any SOB. Constitutional Vitals: Vital Signs Temp Pulse Resp BP Pulse Ox 37.1 C 88 20 123/65 95 04/19/21 07:17 04/19/21 07:17 04/19/21 07:17 04/19/21 07:17 04/19/21 07:17 Period Temp Pulse Resp BP Sys/Hurley Pulse Ox Last 24 Hr 36.2 C-37.4 C 72-108 13-20 90-150/40-114 87-100 Intake and Output 04/18/21 04/19/21 04/19/21 21:59 05:59 13:59 Intake Total 8069 643 5704 Output Total 450 900 Balance 700 -420 1000 Weight 76.43 kg Intake & Output: Intake & Output 04/18/21 04/19/21 04/19/21 21:59 05:59 13:59 Intake Total 6780 667 7264 Output Total 450 900 Balance 700 -420 1000 Weight 76.43 kg Intake: IV 1000 Lactated Ringers 1,000 ml @ 75 1000 mls/hr IV .[id number] [facility] Rx#: [id number] Oral 1150 480 Output: Urine Catheter Amount 450 900 Other: Meal Dinner Percent of Meal Consumed 75% Feeding Ability Assist with Tray Set Up Urine Appearance Clear Clear Uretheral (Duran) Clear Urine Color Bright Yellow Bright Yellow Uretheral (Duran) Pale Urine Odor Normal General appearance: cooperative and no acute distress Exam: Defer Head Head exam: Present atraumatic and normocephalic Eye Eye exam: Present EOMI and PERRL ENT ENT exam: Present mucous membranes moist, normal exam and normal external ear exam Neck Neck exam: Present normal inspection; Absent lymphadenopathy, tenderness and thyromegaly Respiratory Respiratory exam: Absent accessory muscle use, respiratory distress and wheezes Cardiovascular Cardiovascular exam: Present normal rate and rhythm; Absent JVD GI/Abdominal GI/Abdominal exam: Present normal bowel sounds and soft; Absent organomegaly and tenderness Extremities Exam Extremities exam: Present full ROM, normal capillary refill, normal inspection and tenderness Additional comments: Left lateral hip covered by surgical dressing Neurological Exam Neurological exam: Present alert, CN II-XII intact and oriented X3; Absent motor sensory deficit Psychiatric Psychiatric exam: Present normal affect and normal mood; Absent anxious and depressed Skin Skin exam: Present dry and intact OBJ DATA Labs CBC & Chem 7: 04/19/21 06:02 04/17/21 19:13 Labs: Abnormal Lab Results 04/19/21 04/18/21 04/17/21 06:02 00:10 19:13 Hgb 9.2 L Hct 27.6 L [place] # (Auto) Sodium 131 L Chloride 93 L BUN 28 H Glucose 106 H Urine RBC 22 H Urine WBC 6 H Hyaline Casts 3 H Urine Mucus Few A 04/17/21 19:13 Hgb Hct 33.0 L [place] # (Auto) 0.98 H Sodium Chloride BUN Glucose Urine RBC Urine WBC Hyaline Casts Urine Mucus Meds: Medications Acetaminophen (Acetaminophen 325 Mg Tablet) 650 mg PO Q6HP PRN; Protocol PRN Reason: Per Pain Protocol/Fever > 101 Last Admin: 04/18/21 21:32 Dose: 650 mg Documented by: Hydrocodone Bitart/Acetaminophen (Hydrocodone/Apap 7.5/325mg Tablet) 0 tab PO Q4HP PRN; Protocol PRN Reason: Per Pain Protocol Last Admin: 04/19/21 09:02 Dose: 1 tab Documented by: Citalopram Hydrobromide (Citalopram 20 Mg Tablet) 40 mg PO DAILY [facility] Last Admin: 04/19/21 07:47 Dose: 40 mg Documented by: Cyclobenzaprine HCl (Cyclobenzaprine 10 Mg Tablet) 10 mg PO Q6HP PRN PRN Reason: Muscle Spasm Last Admin: 04/19/21 07:47 Dose: 10 mg Documented by: Docusate Sodium (Docusate Sodium 100 Mg Capsule) 100 mg PO BID [facility] Last Admin: 04/19/21 07:47 Dose: 100 mg Documented by: Enoxaparin Sodium (Enoxaparin 30 Mg/0.3 Ml Syringe) 30 mg SQ BID [facility] Last Admin: 04/19/21 09:03 Dose: 30 mg Documented by: Hydrochlorothiazide (Hydrochlorothiazide 25 Mg Tablet) 25 mg PO DAILY [facility] Last Admin: 04/19/21 07:48 Dose: 25 mg Documented by: Hydromorphone HCl (Hydromorphone 1 Mg/Ml Syringe) 1 mg IV Q2HP PRN; Protocol PRN Reason: Per Pain Protocol Last Admin: 04/18/21 15:25 Dose: 1 mg Documented by: Hydroxychloroquine Sulfate (Hydroxychloroquine 200 Mg Tablet) 200 mg PO QDAY [facility] Last Admin: 04/19/21 07:47 Dose: 200 mg Documented by: Ketorolac Tromethamine (Ketorolac 15 Mg/Ml Vial) 15 mg IV Q6HP PRN; Protocol PRN Reason: Per Pain Protocol Stop: 04/20/21 08:54 Last Admin: 04/19/21 09:02 Dose: 15 mg Documented by: Levothyroxine Sodium (Levothyroxine 75 Mcg Tablet) 75 mcg PO QAMAC [facility] Last Admin: 04/19/21 07:47 Dose: 75 mcg Documented by: Lisinopril (Lisinopril 20 Mg Tablet) 20 mg PO DAILY [facility] Last Admin: 04/19/21 07:48 Dose: 20 mg Documented by: Magnesium Hydroxide (Magnesium Hydroxide 30 Ml Oral.Susp) 30 ml PO BIDP PRN PRN Reason: Constipation Methocarbamol (Methocarbamol 1,000 Mg/10 Ml Vial) 750 mg IV Q6HP PRN PRN Reason: Muscle Spasm Morphine Sulfate (Morphine 4 Mg/Ml Vial) 0 mg IV Q1HP PRN; Protocol PRN Reason: Per Pain Protocol Ondansetron HCl (Ondansetron 4 Mg/2 Ml Vial) 4 mg IV Q6HP PRN PRN Reason: Nausea And Vomiting Last Admin: 04/19/21 04:34 Dose: 4 mg Documented by: Pantoprazole Sodium (Pantoprazole 40 Mg Tablet) 40 mg PO QAMAC [facility] Last Admin: 04/19/21 07:47 Dose: 40 mg Documented by: Polyethylene Glycol (Polyethylene Glycol 3350 17 Gm Packet) 17 gm PO DAILYP PRN PRN Reason: Constipation Senna (Sennosides 1 Tablet) 2 tab PO HS [facility] Last Admin: 04/18/21 21:28 Dose: 2 tab Documented by: Sodium Chloride (0.9 % Sodium Chloride 10 Ml Syringe) 10 ml IV Q8 [facility] Last Admin: 04/19/21 04:32 Dose: 10 ml Documented by: Throat Lozenges (Benzocaine/Menthol 1 Lozenge) 1 lozenge PO PRN PRN PRN Reason: Sore Throat Tramadol HCl (Tramadol 50 Mg Tablet) 50 mg PO QDAY PRN; Protocol PRN Reason: PAIN LEVEL > 6 A/P Assessment and plan (1) Systemic lupus erythematosus: Status: Chronic (2) Rheumatoid arthritis: Status: Chronic (3) GERD (gastroesophageal reflux disease): Status: Chronic (4) Hypothyroidism: Status: Chronic (5) Depression: Status: Chronic (6) Fracture of femoral neck, left: Status: Acute Narrative A/P Narrative: Assessment and Plans: 1. Left femoral neck fracture: Stays in inpatient med surg s/p left hip short IM nail fixation by Dr. Collins on 04/18 Activity after surgery as per Dr. Collins Tramadol PRN moderate pain Dilaudid IV PRN severe pain Physical therapy Occupational therapy 2. h/o Depression: Citalopram 3. GERD: Continue oral PPI 4. h/o SLE and rheumatoid arthritis: Plaquenil 5. Hypothyroidism: Continue oral thyroid replacement therapy GI ppx: Continue oral PPI DVT ppx: SCDs Code status: Full Prognosis: Stable Disposition: inpatient med surg Time Spent With Patient Time: Total time spent is greater than 50% in coordination of care (as documented) at patient's floor/unit and/or counseling patient: QUALITY VTE Deep Vein Thrombosis/Pulmonary Embolism Present on Admission: No
--- NOTE | 2021-04-19 14:20 | Internal Med Progress Note ---
SUBJECTIVE Subjective Patient information: Note initiated : 04/20/21 at 2:13 pm Service Date, if different from initiated Date: [] Patient: Paula Hollis 66 y/o F admitted on 04/17/21 for left leg pain. Chief Complaint: [] Interval history: Ms. Hollis is a 66 year old Female with a history of lupus, rheumatoid arthritis, GERD, hypothyroidism, depressions, presenting with a left femoral neck fracture diagnosed with a x-ray of the hip. Orthopedic surgeons Dr. Collins was consulted who agreed to take patient to the OR on April 18 for surgical fixation. 04/18: Surgery today morning by Dr. Collins. Subjective not obtained due to the fact that patient is currently in the OR. 04/19: s/p left hip short IM nail fixation by Dr. Collins on 04/18. Denies any left hip pain. Denies any SOB. Physical exam Head: Atraumatic, normal inspection. Eyes: normal appearance, no scleral icterus. Neck: full ROM Respiratory: no respiratory distress. Cardiovascular: normal rate and rhythm, S1, S2. GI/Abdominal: soft, nontender, no guarding. Extremities: full range of motion, nontender. Neurological: CN II-XII intact, intact motor, intact sensation. Psychiatric: normal mood. Skin: warm, normal color Constitutional Vitals: Vital Signs Temp Pulse Resp BP Pulse Ox 98.0 F 90 20 108/63 96 04/19/21 12:00 04/19/21 12:00 04/19/21 12:00 04/19/21 12:00 04/19/21 12:00 Period Temp Pulse Resp BP Sys/Hurley Pulse Ox Last 24 Hr 97.6 F-99.3 F 72-91 16-20 90-138/59-84 94-98 Intake and Output 04/19/21 04/19/21 04/19/21 05:59 13:59 21:59 Intake Total 480 1320 Output Total 900 Balance -420 1320 Weight 76.43 kg Patient Weight 04/20/21 05:59 Weight 76.43 kg Intake & Output: Intake & Output 04/19/21 04/19/21 04/19/21 05:59 13:59 21:59 Intake Total 480 1320 Output Total 900 Balance -420 1320 Weight 76.43 kg Intake: IV 1000 Lactated Ringers 1,000 ml @ 75 1000 mls/hr IV .[id number] [facility] Rx#: [id number] Oral 480 320 Output: Urine Catheter Amount 900 Other: Meal Lunch Percent of Meal Consumed 50% Feeding Ability Assist with Tray Set Up Urine Appearance Clear Urine Color Bright Yellow Urine Odor Uretheral (Duran) Normal OBJ DATA Labs CBC & Chem 7: 04/19/21 06:02 04/17/21 19:13 Labs: Abnormal Lab Results 04/19/21 04/18/21 04/17/21 06:02 00:10 19:13 Hgb 9.2 L Hct 27.6 L [place] # (Auto) Sodium 131 L Chloride 93 L BUN 28 H Glucose 106 H Urine RBC 22 H Urine WBC 6 H Hyaline Casts 3 H Urine Mucus Few A 04/17/21 19:13 Hgb Hct 33.0 L [place] # (Auto) 0.98 H Sodium Chloride BUN Glucose Urine RBC Urine WBC Hyaline Casts Urine Mucus Meds: Medications Acetaminophen (Acetaminophen 325 Mg Tablet) 650 mg PO Q6HP PRN; Protocol PRN Reason: Per Pain Protocol/Fever > 101 Last Admin: 04/18/21 21:32 Dose: 650 mg Documented by: Hydrocodone Bitart/Acetaminophen (Hydrocodone/Apap 7.5/325mg Tablet) 0 tab PO Q4HP PRN; Protocol PRN Reason: Per Pain Protocol Last Admin: 04/19/21 09:02 Dose: 1 tab Documented by: Citalopram Hydrobromide (Citalopram 20 Mg Tablet) 40 mg PO DAILY [facility] Last Admin: 04/19/21 07:47 Dose: 40 mg Documented by: Cyclobenzaprine HCl (Cyclobenzaprine 10 Mg Tablet) 10 mg PO Q6HP PRN PRN Reason: Muscle Spasm Last Admin: 04/19/21 07:47 Dose: 10 mg Documented by: Docusate Sodium (Docusate Sodium 100 Mg Capsule) 100 mg PO BID [facility] Last Admin: 04/19/21 07:47 Dose: 100 mg Documented by: Enoxaparin Sodium (Enoxaparin 30 Mg/0.3 Ml Syringe) 30 mg SQ BID [facility] Last Admin: 04/19/21 09:03 Dose: 30 mg Documented by: Hydrochlorothiazide (Hydrochlorothiazide 25 Mg Tablet) 25 mg PO DAILY [facility] Last Admin: 04/19/21 07:48 Dose: 25 mg Documented by: Hydromorphone HCl (Hydromorphone 1 Mg/Ml Syringe) 1 mg IV Q2HP PRN; Protocol PRN Reason: Per Pain Protocol Last Admin: 04/18/21 15:25 Dose: 1 mg Documented by: Hydroxychloroquine Sulfate (Hydroxychloroquine 200 Mg Tablet) 200 mg PO QDAY [facility] Last Admin: 04/19/21 07:47 Dose: 200 mg Documented by: Ketorolac Tromethamine (Ketorolac 15 Mg/Ml Vial) 15 mg IV Q6HP PRN; Protocol PRN Reason: Per Pain Protocol Stop: 04/20/21 08:54 Last Admin: 04/19/21 09:02 Dose: 15 mg Documented by: Levothyroxine Sodium (Levothyroxine 75 Mcg Tablet) 75 mcg PO [facility] Last Admin: 04/19/21 07:47 Dose: 75 mcg Documented by: Lisinopril (Lisinopril 20 Mg Tablet) 20 mg PO DAILY [facility] Last Admin: 04/19/21 07:48 Dose: 20 mg Documented by: Magnesium Hydroxide (Magnesium Hydroxide 30 Ml Oral.Susp) 30 ml PO BIDP PRN PRN Reason: Constipation Methocarbamol (Methocarbamol 1,000 Mg/10 Ml Vial) 750 mg IV Q6HP PRN PRN Reason: Muscle Spasm Morphine Sulfate (Morphine 4 Mg/Ml Vial) 0 mg IV Q1HP PRN; Protocol PRN Reason: Per Pain Protocol Ondansetron HCl (Ondansetron 4 Mg/2 Ml Vial) 4 mg IV Q6HP PRN PRN Reason: Nausea And Vomiting Last Admin: 04/19/21 04:34 Dose: 4 mg Documented by: Pantoprazole Sodium ([facility]razole 40 Mg Tablet) [facility] Last Admin: 04/19/21 07:47 Dose: 40 mg Documented by: Polyethylene Glycol (Polyethylene Glycol 3350 17 Gm Packet) 17 gm PO DAILYP PRN PRN Reason: Constipation Senna (Sennosides 1 Tablet) 2 tab PO [facility] Last Admin: 04/18/21 21:28 Dose: 2 tab Documented by: Sodium Chloride (0.9 % Sodium Chloride 10 Ml Syringe) 10 ml IV Q8 [facility] Last Admin: 04/19/21 04:32 Dose: 10 ml Documented by: Throat Lozenges (Benzocaine/Menthol 1 Lozenge) 1 lozenge PO PRN PRN PRN Reason: Sore Throat Tramadol HCl (Tramadol 50 Mg Tablet) 50 mg PO QDAY PRN; Protocol PRN Reason: PAIN LEVEL > 6 A/P Narrative A/P Narrative: Assessment: 66 year old female with a history of lupus, rheumatoid arthritis, GERD, hypothyroidism, depressions, admitted for a left femoral neck fracture s/p surgical correction w/ IM nail on 04/18/21. #Left hip fracture s/p IM nail 04/18 #SLE #Rheumatoid arthritis #Depression #GERD #Hypothyroid Plan -Analgesics prn -Muscle relaxers prn -PT and OT -Essential home meds -DVT ppx: Lovenox SQ -Code statusL DNR -Dispo: probably SNF for rehab Time Spent With Patient Time: Total time spent is greater than 50% in coordination of care (as documented) at patient's floor/unit and/or counseling patient: QUALITY VTE Deep Vein Thrombosis/Pulmonary Embolism Present on Admission: No
--- NOTE | 2021-04-19 14:56 | Orthopedic Progress Note ---
SUBJECTIVE Subjective Patient information: Note initiated : 04/19/21 at 2:52 pm Service Date, if different from initiated Date: [] Patient: Paula Hollis 66 y/o F admitted on 04/17/21 for left leg pain. Chief Complaint: [Postop day 1 left hip fracture treated with intramedullary nail] Patient was laying comfortably in bed. She was alert and oriented. There is no signs she is having any pain. In her stated that she had been up ambulating without difficulty today. Constitutional Vitals: Vital Signs Temp Pulse Resp BP Pulse Ox 98.0 F 90 20 108/63 96 04/19/21 12:00 04/19/21 12:00 04/19/21 12:00 04/19/21 12:00 04/19/21 12:00 Period Temp Pulse Resp BP Sys/Hurley Pulse Ox Last 24 Hr 97.6 F-99.3 F 72-91 16-20 90-138/59-84 94-98 Intake and Output 04/19/21 04/19/21 04/19/21 05:59 13:59 21:59 Intake Total 480 1320 Output Total 900 Balance -420 1320 Weight 168 lb 8 oz Patient Weight 04/20/21 05:59 Weight 168 lb 8 oz Intake & Output: Intake & Output 04/19/21 04/19/21 04/19/21 05:59 13:59 21:59 Intake Total 480 1320 Output Total 900 Balance -420 1320 Weight 168 lb 8 oz Intake: IV 1000 Lactated Ringers 1,000 ml @ 75 1000 mls/hr IV .[id number] [facility] Rx#: [id number] Oral 480 320 Output: Urine Catheter Amount 900 Other: Meal Lunch Percent of Meal Consumed 50% Feeding Ability Assist with Tray Set Up Urine Appearance Clear Urine Color Bright Yellow Urine Odor Uretheral (Duran) Normal Exam: Incision was clean and dry. She is neurovascularly intact in her left leg. OBJ DATA Labs CBC & Chem 7: 04/19/21 06:02 04/17/21 19:13 Labs: Abnormal Lab Results 04/19/21 04/18/21 04/17/21 06:02 00:10 19:13 Hgb 9.2 L Hct 27.6 L [place] # (Auto) Sodium 131 L Chloride 93 L BUN 28 H Glucose 106 H Urine RBC 22 H Urine WBC 6 H Hyaline Casts 3 H Urine Mucus Few A 04/17/21 19:13 Hgb Hct 33.0 L [place] # (Auto) 0.98 H Sodium Chloride BUN Glucose Urine RBC Urine WBC Hyaline Casts Urine Mucus Meds: Medications Acetaminophen (Acetaminophen 325 Mg Tablet) 650 mg PO Q6HP PRN; Protocol PRN Reason: Per Pain Protocol/Fever > 101 Last Admin: 04/18/21 21:32 Dose: 650 mg Documented by: Hydrocodone Bitart/Acetaminophen (Hydrocodone/Apap 7.5/325mg Tablet) 0 tab PO Q4HP PRN; Protocol PRN Reason: Per Pain Protocol Last Admin: 04/19/21 09:02 Dose: 1 tab Documented by: Citalopram Hydrobromide (Citalopram 20 Mg Tablet) 40 mg PO DAILY [facility] Last Admin: 04/19/21 07:47 Dose: 40 mg Documented by: Cyclobenzaprine HCl (Cyclobenzaprine 10 Mg Tablet) 10 mg PO Q6HP PRN PRN Reason: Muscle Spasm Last Admin: 04/19/21 07:47 Dose: 10 mg Documented by: Docusate Sodium (Docusate Sodium 100 Mg Capsule) 100 mg PO BID [facility] Last Admin: 04/19/21 07:47 Dose: 100 mg Documented by: Enoxaparin Sodium (Enoxaparin 30 Mg/0.3 Ml Syringe) 30 mg SQ BID [facility] Last Admin: 04/19/21 09:03 Dose: 30 mg Documented by: Hydrochlorothiazide (Hydrochlorothiazide 25 Mg Tablet) 25 mg PO DAILY [facility] Last Admin: 04/19/21 07:48 Dose: 25 mg Documented by: Hydromorphone HCl (Hydromorphone 1 Mg/Ml Syringe) 1 mg IV Q2HP PRN; Protocol PRN Reason: Per Pain Protocol Last Admin: 04/18/21 15:25 Dose: 1 mg Documented by: Hydroxychloroquine Sulfate (Hydroxychloroquine 200 Mg Tablet) 200 mg PO QDAY [facility] Last Admin: 04/19/21 07:47 Dose: 200 mg Documented by: Ketorolac Tromethamine (Ketorolac 15 Mg/Ml Vial) 15 mg IV Q6HP PRN; Protocol PRN Reason: Per Pain Protocol Stop: 04/20/21 08:54 Last Admin: 04/19/21 09:02 Dose: 15 mg Documented by: Levothyroxine Sodium (Levothyroxine 75 Mcg Tablet) 75 mcg PO [facility] Last Admin: 04/19/21 07:47 Dose: 75 mcg Documented by: Lisinopril (Lisinopril 20 Mg Tablet) 20 mg PO DAILY [facility] Last Admin: 04/19/21 07:48 Dose: 20 mg Documented by: Magnesium Hydroxide (Magnesium Hydroxide 30 Ml Oral.Susp) 30 ml PO BIDP PRN PRN Reason: Constipation Methocarbamol (Methocarbamol 1,000 Mg/10 Ml Vial) 750 mg IV Q6HP PRN PRN Reason: Muscle Spasm Morphine Sulfate (Morphine 4 Mg/Ml Vial) 0 mg IV Q1HP PRN; Protocol PRN Reason: Per Pain Protocol Ondansetron HCl (Ondansetron 4 Mg/2 Ml Vial) 4 mg IV Q6HP PRN PRN Reason: Nausea And Vomiting Last Admin: 04/19/21 04:34 Dose: 4 mg Documented by: Pantoprazole Sodium (Pantoprazole 40 Mg Tablet) 40 mg PO [facility] Last Admin: 04/19/21 07:47 Dose: 40 mg Documented by: Polyethylene Glycol (Polyethylene Glycol 3350 17 Gm Packet) 17 gm PO DAILYP PRN PRN Reason: Constipation Senna (Sennosides 1 Tablet) 2 tab PO [facility] Last Admin: 04/18/21 21:28 Dose: 2 tab Documented by: Sodium Chloride (0.9 % Sodium Chloride 10 Ml Syringe) 10 ml IV Q8 [facility] Last Admin: 04/19/21 04:32 Dose: 10 ml Documented by: Throat Lozenges (Benzocaine/Menthol 1 Lozenge) 1 lozenge PO PRN PRN PRN Reason: Sore Throat Tramadol HCl (Tramadol 50 Mg Tablet) 50 mg PO QDAY PRN; Protocol PRN Reason: PAIN LEVEL > 6 A/P Time Spent With Patient Time: Total time spent is greater than 50% in coordination of care (as documented) at patient's floor/unit and/or counseling patient: Overall this patient is doing well postop day 1 left hip fixation with intramedu llary nail. Prescription provided for aspirin for DVT prophylaxis and hydrocodone for pain control. weightbearing as tolerated Continue discharge planning as per hospital team Follow-up with [facility] myself or PA in 2 weeks time. Orthopedic signs off for now please contact Dr. Collins if any questions or concerns.
[2021-04-19] MEDS: SENNOSIDES 1 TABLET PO SCH (21:13)
[2021-04-20] MEDS: HYDROCODONE/APAP 7.5/325MG TABLET PO PRN ×3 (03:08→13:43)
[2021-04-20] MEDS: ONDANSETRON 4 MG/2 ML VIAL IV PRN ×2 (03:13→08:18)
[2021-04-20] MEDS: CYCLOBENZAPRINE 10 MG TABLET PO PRN ×2 (04:08→13:43)
[2021-04-20 08:05] LABS: Hematocrit 27.8 % (34.1-44.9); Hemoglobin 9.2 g/dL (11.2-15.7)
[2021-04-20] MEDS: LEVOTHYROXINE 75 MCG TABLET PO SCH (08:10)
[2021-04-20] MEDS: LISINOPRIL 20 MG TABLET PO SCH (08:10)
[2021-04-20] MEDS: HYDROCHLOROTHIAZIDE 25 MG TABLET PO SCH (08:10)
[2021-04-20] MEDS: PANTOPRAZOLE 40 MG TABLET PO SCH (08:10)
[2021-04-20] MEDS: CITALOPRAM 20 MG TABLET PO SCH (08:10)
[2021-04-20] MEDS: DOCUSATE SODIUM 100 MG CAPSULE PO SCH (08:10)
[2021-04-20] MEDS: ENOXAPARIN 30 MG/0.3 ML SYRINGE SQ SCH (08:10)
[2021-04-20] MEDS: 0.9 % SODIUM CHLORIDE 10 ML SYRINGE IV SCH (08:10)
[2021-04-20] MEDS: HYDROXYCHLOROQUINE 200 MG TABLET PO SCH (08:10)
[2021-04-20 08:30] LABS: INR 0.9 (0.9-1.1); Prothrombin Time 12.9 sec (11.9-14.5)
--- NOTE | 2021-04-20 11:08 | Discharge Summary ---
Discharge Provider Provider Patient information: Note initiated : 04/20/21 at 11:08 am Service Date, if different from initiated Date: [] Patient: Paula Hollis 66 y/o F admitted on 04/17/21 for left leg pain. Chief Complaint: [] Date of admission: 04/17/21 22:02 Discharge date: 04/20/21 Primary care physician: Kevin Santoyo Consults: 04/17/21 Consult to Physician [CONS] Stat Comment: Consulting Provider: Greyson Collins Reason For Exam: Physician to Consult Consult to Physician [CONS] Stat Comment: Consulting Provider: Quentin Keith Reason For Exam: Physician to Consult 04/17/21 22:07 Consult to Physician [CONS] Stat Comment: Consulting Provider: Greyson Collins Reason For Exam: Physician to Consult Discharge Meds Discharge Medications Home Medications citalopram 40 mg tablet 40 mg PO QDAY tab 12/24/15 [History Confirmed 04/17/21 Last Taken 04/17/21 00:00] hydroxychloroquine 200 mg tablet 200 mg PO QDAY tab 12/24/15 [History Confirmed 04/17/21 Last Taken 04/17/21 00:00] lisinopril 20 mg-hydrochlorothiazide 25 mg tablet 1 tab PO QDAY 12/24/15 [History Confirmed 04/17/21 Last Taken 04/17/21 00:00] pantoprazole 20 mg tablet,delayed release 20 mg PO QDAY 12/24/15 [History Confirmed 04/17/21 Last Taken 04/17/21 00:00] promethazine 25 mg tablet 25 mg PO TIDP PRN tab 12/24/15 [History Confirmed 04/17/21 Last Taken 04/17/21 00:00] aspirin 81 mg PO BID #60 tab 04/18/21 [Rx Last Taken Unknown] hydrocodone-acetaminophen 1 tab PO Q4H PRN #60 tab 04/18/21 [Rx Last Taken Unknown] COURSE Hospital Course Hospital course: Ms. Hollis is a 66 year old Female with a history of lupus, rheumatoid arthritis, GERD, hypothyroidism, depressions, presenting with a left femoral neck fracture diagnosed with a x-ray of the hip. Orthopedic surgeons Dr. Collins was consulted who agreed to take patient to the OR on April 18 for surgical fixation. 04/18: Surgery today morning by Dr. Collins. Subjective not obtained due to the fact that patient is currently in the OR. 04/19: s/p left hip short IM nail fixation by Dr. Collins on 04/18. Denies any left hip pain. Denies any SOB. 04/20: Discharged to SNF. Physical exam Head: Atraumatic, normal inspection. Eyes: normal appearance, no scleral icterus. Neck: full ROM Respiratory: no respiratory distress. Cardiovascular: normal rate and rhythm, S1, S2. GI/Abdominal: soft, nontender, no guarding. Extremities: full range of motion, nontender. Neurological: CN II-XII intact, intact motor, intact sensation. Psychiatric: normal mood. Skin: warm, normal color Discharge diagnosis: hip fracture Time Spent with Patient Time attestation: Total time spent providing and/or coordinating discharge services: EXAM Constitutional Vitals: Temp Pulse Resp BP Pulse Ox 97.2 F 63 20 106/61 96 04/20/21 07:39 04/20/21 07:39 04/20/21 07:39 04/20/21 07:39 04/20/21 07:39 Discharge Data Data Completed and Pending Labs on day of discharge: Labs from last 24 hours 04/20/21 04/20/21 06:47 06:47 Hgb 9.2 L Hct 27.8 L PT 12.9 INR 0.9 Discharge Plan Patient/Caregiver Discharge Instructions Activity: other Diet: Regular Diet Activity Restrictions/Additional Instructions: 50 percent WB left leg Prescriptions: New hydrocodone-acetaminophen 7.5-325 mg tablet 1 tab PO Q4H PRN (Reason: pain) Qty: 60 RF: 0 aspirin 81 mg tablet,chewable 81 mg PO BID Qty: 60 RF: 0 No Action citalopram 40 mg tablet 40 mg PO QDAY RF: 0 pantoprazole 20 mg tablet,delayed release (DR/EC) 20 mg PO QDAY RF: 0 promethazine 25 mg tablet 25 mg PO TIDP PRN (Reason: Nausea) RF: 0 lisinopril-hydrochlorothiazide 20-25 mg tablet 1 tab PO QDAY RF: 0 hydroxychloroquine 200 mg tablet 200 mg PO QDAY RF: 0 Follow Up Plan Follow up with: Kevin Santoyo ARNP [Primary Care Provider] - Patient Disposition: Home, Self-Care Discharge Orders: Discharge Order (Routine); Ordered 04/21/21 Ordered By: [facility] VTE Deep Vein Thrombosis/Pulmonary Embolism Present on Admission: No
== END 2021-04-20 14:00 | DRG 482 ==
LOC: ED 16:59 → MEDSUR 22:00
PROVIDERS: ADMIT Internal Medicine; ATTEND Internal Medicine

== ENCOUNTER 2021-07-12 18:47 | Inpatient (IN) ==
[2021-07-12] MEDS ORDERED: HYDROcodone/APAP 5/325MG TABLET PO ONE (19:03)
[2021-07-12 19:22] LABS: POC Blood Urea Nitrogen 19 mg/dL (6-20); POC CO2 25 mmol/L (22-30); POC Calcium, Ionized 1.11 mmEq/L (1.16-1.32); POC Chloride 90 mEq/L (96-108); POC Creatinine 0.9 mg/dL (0.6-1.2); POC Glucose, Random 111 mg/dL (70-105); POC Hematocrit 30 % (36-48); POC Potassium 4.1 mEql/L (3.3-5.1); POC Sodium 128 mEq/L (133-145)
[2021-07-12] MEDS ORDERED: CYCLOBENZAPRINE 10 MG TABLET PO ONE (19:37)
[2021-07-12] MEDS ORDERED: LORazepam 2 MG/ML VIAL IM ONE (19:37)
--- NOTE | 2021-07-12 20:56 | XRay Report ---
INDICATION: hip pain TECHNIQUE: AP pelvis. Crosstable lateral left hip COMPARISON: Previous examinations dated 06/02/2021, 05/06/2021, 04/18/2021 FINDINGS: Previous open reduction and internal fixation of left intertrochanteric hip fracture. There is a gamma nail configuration. There is marked varus deformity. This deformity has increased since previous postoperative examinations. Findings are consistent with instability and further displacement and angulation. The tip of the screw is 3 mm from cortex compared with 8 mm from cortex on prior examination. Pelvis is negative. No fracture. No lytic lesion. Sacrum is negative IMPRESSION: 1. Status post open reduction and internal fixation of left intertrochanteric hip fracture 2. Increased varus angulation deformity and mild screw migration since 06/02/2021 Interpreted and Authenticated by: Praful Sr 07/12/21
[2021-07-12] MEDS ORDERED: HYDROmorphone 0.5 MG/0.5 ML SYRINGE IV ONE (21:29)
--- NOTE | 2021-07-12 21:44 | Internal Med History&Physical ---
HPI History of Present Illness Patient information: Note initiated : 07/12/21 at 9:44 pm Service Date, if different from initiated Date: [] Patient: Paula Hollis a 66 y/o F admitted on for hip. Chief Complaint: [] History of present illness: Ms. Hollis is a 66 year old F with a complex medical history of rheumatoid arthritis/alopecia/hypertension/hypothyroidism/DJD/anxiety disorder who presents to the ER after experiencing worsening pain and difficulty weightbearing over the last few days. Patient apparently had a fall in April and underwent a femoral neck fracture repair. She was recovering well until she had a fall a few days ago following which she continues to experience difficulty ambulation/increasing pain in the recent she presents to the ER. Initial work-up was consistent with screw migration of the prosthesis on hip imaging along with a fracture. Orthopedic was consulted and requested admission for operative intervention. Hospitalist service was consulted to facilitate hospitalization and comanagement of multiple medical issues At the time of evaluation patient is alert and oriented. She was able to answer most the questions and endorse history as above. She denies lightheadedness dizziness, fever, chills, shortness breath, hemoptysis, diarrhea, abdominal pain or chest pain. Review of systems 10 point review system was performed and is negative except for ones discussed above PFSH PFSH All Active Problems Cellulitis (Acute) Failed hardware (Acute) Hip fracture (Acute) Edema of both lower legs (Acute) Dental abscess (Acute) Fracture of femoral neck, left (Acute) Arthralgia (Chronic) Alopecia (Chronic) Antinuclear factor positive (Chronic) Yeast infection of the vagina (Chronic) UTI (urinary tract infection) (Chronic) Gastroparesis (Chronic) White coat hypertension (Chronic) Systemic lupus erythematosus (Chronic) Rheumatoid arthritis (Chronic) Osteoporosis (Chronic) GERD (gastroesophageal reflux disease) (Chronic) Hypothyroidism (Chronic) Electrolyte imbalance (Chronic) Vitamin D deficiency (Chronic) Anxiety (Chronic) Depression (Chronic) Rash (Chronic) Leg weakness, bilateral (Chronic) Leg pain, bilateral (Chronic) Medical History Alopecia Antinuclear factor positive Anxiety Arthralgia Closed fracture of left hip requiring operative repair Depression Edema of both lower legs Electrolyte imbalance Gastroparesis GERD (gastroesophageal reflux disease) Hypothyroidism Leg pain, bilateral Leg weakness, bilateral Osteoporosis Rash Rheumatoid arthritis Systemic lupus erythematosus UTI (urinary tract infection) Vitamin D deficiency White coat hypertension Yeast infection of the vagina Surgical History History of section 1975, 1981, 1982 & 1988 Family History Mother Muscular wasting and disuse atrophy Father Muscular wasting and disuse atrophy Unknown Diabetes mellitus Alcoholism Social History marital status: single occupational status: retired physical activity: none alcohol intake frequency: holiday/special occasion only substance use type: does not use MEDS/ALLERGIES Home Medications and Allergies Home Medications Medication Instructions Recorded Confirmed Type citalopram 40 mg tablet 40 mg PO QDAY tab 12/24/15 07/12/21 History hydroxychloroquine 200 mg tablet 200 mg PO QDAY tab 12/24/15 07/12/21 History lisinopril 20 1 tab PO QDAY 12/24/15 07/12/21 History mg-hydrochlorothiazide 25 mg tablet pantoprazole 20 mg tablet,delayed 20 mg PO QDAY 12/24/15 07/12/21 History release promethazine 25 mg tablet 25 mg PO TIDP PRN tab 12/24/15 07/12/21 History aspirin 81 mg chewable tablet 81 mg PO BID #60 tab 04/18/21 07/13/21 Rx acetaminophen 500 mg tablet 1,000 mg PO Q6H PRN #60 tab 05/02/21 07/13/21 Rx hydrocodone 7.5 mg-acetaminophen 1 tab PO Q4H PRN #60 tab 05/11/21 07/13/21 Rx 325 mg tablet furosemide 20 mg tablet (Lasix) 20 mg PO QAM PRN #15 tab 06/16/21 07/13/21 Rx cephalexin 500 mg capsule 500 mg PO QID #20 cap 06/18/21 07/13/21 Rx methocarbamol 750 mg tablet 750 mg PO TID #14 tab 06/18/21 07/13/21 Rx cyclobenzaprine 10 mg tablet 10 mg PO QHS 07/12/21 07/12/21 History levothyroxine 75 mcg capsule 75 mcg PO QDAY 07/12/21 07/12/21 History potassium chloride 10 mEq 10 meq PO BID 07/12/21 07/12/21 History capsule,extended release aspirin 81 mg tablet,delayed 81 mg PO BID #60 tab 07/13/21 Rx release (Aspirin Low Dose) hydrocodone 10 mg-acetaminophen 1 - 2 tab PO Q4H PRN #60 tab 07/13/21 Rx 325 mg tablet Allergies Allergy/AdvReac Type Severity Reaction Status Date / Time codeine AdvReac Mild Vomiting Verified 07/12/21 18:52 EXAM Constitutional Vitals: Temp Pulse Resp BP Pulse Ox 97.6 F 110 H 24 H 133/73 97 07/12/21 18:48 07/12/21 21:39 07/12/21 18:48 07/12/21 21:07 07/12/21 21:39 Appears in distress from pain Head normocephalic, alopecia noted Oral cavity moist No ear or nose discharge Eye no subconjunctival pallor, movement symmetrical S1-S2 occasionally irregular Nonlabored breathing Nondistended nontender abdomen Lower extremity tenderness to range of motion at left hip Skin no suspicious lesion Psych anxious but no hallucination Neuro normal GCS 13 DATA Data Completed and Pending Labs: Labs from last 24 hours 07/12/21 07/12/21 07/12/21 21:41 21:40 19:13 WBC Pending RBC Pending Hgb Pending Hct Pending POC Hct Pending 30 L MCV Pending MCH Pending MCHC Pending RDW Pending Plt Count Pending MPV Pending Neut % (Auto) Pending POC Sodium Pending 128 L POC Potassium Pending 4.1 POC Chloride Pending 90 L POC Total CO2 Pending 25 POC BUN Pending 19 POC Creatinine Pending 0.9 POC Glucose Pending 111 H POC WB Ioniz Calcium Pending 1.11 L A/P Narrative A/P Narrative: * Left hip fracture/hardware migration Orthopedic consulted. Will undergo operative intervention * Pain management on as needed opioids * Preop risk evaluation-based on [employer] [place] [employer] recertification patient would be a high risk operative candidate however there are no modifiable risk factors at this time. Surgery and anesthesia specific risk will be addressed by individual care providers. * Hypothyroidism thyroxine * History of SLE/RA/alopecia on Plaquenil * Hypertension continue antihypertensives postoperatively. * GERD continue PPI * Anxiety disorder continue citalopram Plan * Inpatient admission * Keep n.p.o. after midnight * Postop care per orthopedics * Pre-existing medical condition management as above * Review postop * PT OT nutrition support * Discharge planning per case management Time Spent With Patient Time: Total time spent is greater than 50% in coordination of care (as documented) at patient's floor/unit and/or counseling patient: Total time spent with greater than 50% in coordination of care (as documented) at patient's floor/unit and/or counseling patient:: Greater than 35 minutes
[2021-07-12 21:54] LABS: POC Blood Urea Nitrogen 20 mg/dL (6-20); POC CO2 25 mmol/L (22-30); POC Chloride 90 mEq/L (96-108); POC Creatinine 0.8 mg/dL (0.6-1.2); POC Glucose, Random 104 mg/dL (70-105); POC Hematocrit 31 % (36-48); POC Potassium 4.2 mEql/L (3.3-5.1); POC Sodium 127 mEq/L (133-145)
--- NOTE | 2021-07-12 22:15 | Emergency Department Note ---
HPI General Chief complaint: Extremity Injury, Lower Stated complaint: hip Time Seen by Provider: 07/12/21 18:54 Source: patient and EMS Mode of arrival: EMS Limitations: no limitations History of Present Illness HPI Narrative: Narrative: Patient is a 66-year-old female who presents with chief complaint of hip pain. Patient had a fall in April, subsequent femoral neck fracture was found and she had that repaired by Dr. Collins. Patient states she was doing well overall, but a few days ago she fell, landing onto her hip again and ever since then has been having worsening pain in that area. She thinks something may be loose. She otherwise denies any other significant symptoms such as head injury, neck pain, chest pain, shortness of breath, nausea, vomiting, abdominal pain, changes in bowel movements or urinary symptoms, numbness or tingling. Related Data Home Medications Medication Instructions Recorded Confirmed citalopram 40 mg tablet 40 mg PO QDAY tab 12/24/15 06/16/21 hydroxychloroquine 200 mg tablet 200 mg PO QDAY tab 12/24/15 06/16/21 lisinopril 20 1 tab PO QDAY 12/24/15 06/16/21 mg-hydrochlorothiazide 25 mg tablet pantoprazole 20 mg tablet,delayed 20 mg PO QDAY 12/24/15 06/16/21 release promethazine 25 mg tablet 25 mg PO TIDP PRN tab 12/24/15 06/16/21 cyclobenzaprine 10 mg tablet 10 mg PO QHS 07/12/21 07/12/21 levothyroxine 75 mcg capsule 75 mcg PO QDAY 07/12/21 07/12/21 potassium chloride 10 mEq 10 meq PO BID 07/12/21 07/12/21 capsule,extended release Previous Rx's Medication Instructions Recorded aspirin 81 mg chewable tablet 81 mg PO BID #60 tab 04/18/21 acetaminophen 500 mg tablet 1,000 mg PO Q6H PRN #60 tab 05/02/21 hydrocodone 7.5 mg-acetaminophen 1 tab PO Q4H PRN #60 tab 05/11/21 325 mg tablet furosemide 20 mg tablet (Lasix) 20 mg PO QAM PRN #15 tab 06/16/21 cephalexin 500 mg capsule 500 mg PO QID #20 cap 06/18/21 methocarbamol 750 mg tablet 750 mg PO TID #14 tab 06/18/21 Allergies Allergy/AdvReac Type Severity Reaction Status Date / Time codeine AdvReac Mild Vomiting Verified 07/12/21 18:52 Review of Systems ROS ROS Narrative: Narrative: All systems ED: reviewed and negative except as stated. PFS Narrative Patient History Narrative: Narrative: Medical/Surgical/Family History All Active Problems (Updated 07/12/21 @ 22:15 by Mal Rosa DO) Cellulitis (Acute) Failed hardware (Acute) Hip fracture (Acute) Edema of both lower legs (Acute) Dental abscess (Acute) Fracture of femoral neck, left (Acute) Arthralgia (Chronic) Alopecia (Chronic) Antinuclear factor positive (Chronic) Yeast infection of the vagina (Chronic) UTI (urinary tract infection) (Chronic) Gastroparesis (Chronic) White coat hypertension (Chronic) Systemic lupus erythematosus (Chronic) Rheumatoid arthritis (Chronic) Osteoporosis (Chronic) GERD (gastroesophageal reflux disease) (Chronic) Hypothyroidism (Chronic) Electrolyte imbalance (Chronic) Vitamin D deficiency (Chronic) Anxiety (Chronic) Depression (Chronic) Rash (Chronic) Leg weakness, bilateral (Chronic) Leg pain, bilateral (Chronic) Medical History Alopecia Antinuclear factor positive Anxiety Arthralgia Closed fracture of left hip requiring operative repair Depression Edema of both lower legs Electrolyte imbalance Gastroparesis GERD (gastroesophageal reflux disease) Hypothyroidism Leg pain, bilateral Leg weakness, bilateral Osteoporosis Rash Rheumatoid arthritis Systemic lupus erythematosus UTI (urinary tract infection) Vitamin D deficiency White coat hypertension Yeast infection of the vagina Surgical History History of section 1975, 1981, 1982 & 1988 Family History Mother Muscular wasting and disuse atrophy Father Muscular wasting and disuse atrophy Unknown Diabetes mellitus Alcoholism Social History Smoking Status: Never smoker Alcohol Intake Frequency: holiday/special occasion only Substance Use: does not use Exam Narrative Narrative: Narrative: Patient is laying in bed, talking normally and appropriately. She does not appear to be in acute distress but does appear uncomfortable General Limitations: no limitations Head Head: Present atraumatic and normocephalic Eye Eye: Present normal appearance, PERRL and EOMI; Absent scleral icterus or conjunctival injection ENT ENT: Present normal oropharynx and mucous membranes moist Neck Neck: Present full ROM and trachea midline; Absent tenderness or lymphadenopathy Chest Chest: Present symmetric chest wall rise Respiratory Respiratory: Present normal lung sounds bilaterally; Absent respiratory distress, rales/crackles, wheezes, stridor or accessory muscle use Cardiovascular Cardiovascular: Present regular rate and normal rhythm; Absent systolic murmur or diastolic murmur Adbominal Abdominal: Present soft; Absent tenderness, guarding, rebound, rigidity or mass Extremities Extremities: Absent pedal edema, pretibial edema or calf tenderness Expanded Lower Extremity Hip/Pelvis: Present tenderness and pelvis stable; Absent swelling, ecchymosis, deformity, crepitus, dislocation, erythema, internal rotation or shortening Back Back: Absent CVA tenderness (R), CVA tenderness (L) or spinous process tenderness Neurological Neurological: Present alert and oriented X3 Psychiatric Psychiatric: Present normal affect and normal mood Skin Skin: Present warm (WNL) and dry Course Vital Signs Vital signs: Vital Signs Temperature 97.6 F 07/12/21 18:48 Pulse Rate 106 H 07/12/21 18:48 Respiratory Rate 24 H 07/12/21 18:48 Blood Pressure 111/83 07/12/21 18:48 Pulse Oximetry (%) 98 07/12/21 18:48 Temperature 97.6 F 07/12/21 18:48 Pulse Rate 115 H 07/12/21 22:01 Respiratory Rate 24 H 07/12/21 18:48 Blood Pressure 155/62 07/12/21 22:01 Pulse Oximetry (%) 96 07/12/21 22:01 [facility] Narrative Medical decision making narrative: Narrative: Patient is a 66 a female presented with chief complaint of hip pain. X-rays were concerning for possible loosening of the hardware and/or worsening displacement of the fracture. I discussed the case with the on-call surgeon, Dr. Ribeiro, and he agreed after looking at the films that this is likely needed to be fixed. He recommended admission to the hospital by the hospitalist, and he would likely try to fix the patient tomorrow. I discussed case the hospita list, agrees the plan of admission at this time. I discussed all the findings with the patient, and she is agreeable to the plan of admission and has no further concerns or questions. Patient's pain is currently under control. Her initial tachycardia likely was secondary to discomfort, and this is improving now that she is feeling better and resting in the bed Lab Data Result diagrams: 07/12/21 21:41 Labs: Lab Results 07/12/21 07/12/21 Range/Units 19:13 21:40 POC Hct 30 L 31 L (36-48) % POC Sodium 128 L 127 L (133-145) mEq/L POC Potassium 4.1 4.2 (3.3-5.1) mEql/L POC Chloride 90 L 90 L (96-108) mEq/L POC Total CO2 25 25 (22-30) mmol/L POC BUN 19 20 (6-20) mg/dL POC Creatinine 0.9 0.8 (0.6-1.2) mg/dL POC Glucose 111 H 104 (70-105) mg/dL POC WB Ioniz Calcium 1.11 L 1.10 L (1.16-1.32) mmEq/L ED POC Tests ED POC Tests: TIFFANIE - Influenza A Negative TIFFANIE - Influenza B Negative TIFFANIE - SARS Antigen Negative Discharge Plan Patient/Caregiver Discharge Instructions Pt seen by [employer] OPERATOR/PA only: No Clinical Impression: Failed hardware, Hip fracture Patient Disposition: Xfer As Inpt ([facility]) Follow up with: Diane Weldon ARNP [Primary Care Provider] - Prescriptions: No Action hydrocodone-acetaminophen 7.5-325 mg tablet 1 tab PO Q4H PRN (Reason: pain) Qty: 60 0RF citalopram 40 mg tablet 40 mg PO QDAY 0RF pantoprazole 20 mg tablet,delayed release (DR/EC) 20 mg PO QDAY 0RF promethazine 25 mg tablet 25 mg PO TIDP PRN (Reason: Nausea) 0RF lisinopril-hydrochlorothiazide 20-25 mg tablet 1 tab PO QDAY 0RF hydroxychloroquine 200 mg tablet 200 mg PO QDAY 0RF furosemide [Lasix] 20 mg tablet 20 mg PO QAM PRN (Reason: edema) Qty: 15 0RF aspirin 81 mg tablet,chewable 81 mg PO BID Qty: 60 0RF acetaminophen 500 mg tablet 1,000 mg PO Q6H PRN (Reason: pain) Qty: 60 0RF methocarbamol 750 mg tablet 750 mg PO TID Qty: 14 0RF cephalexin 500 mg capsule 500 mg PO QID Qty: 20 0RF cyclobenzaprine 10 mg tablet 10 mg PO QHS 0RF potassium chloride 10 mEq Capsule, Extended Release 10 meq PO BID 0RF levothyroxine 75 mcg Capsule 75 mcg PO QDAY 0RF
[2021-07-12 22:28] LABS: Basophils # (Auto) 0.08 K/mcL (0.00-0.30); Basophils % (Auto) 0.8 % (0.0-2.0); Eosinophils # (Auto) 0.16 K/mcL (0.00-0.70); Eosinophils % (Auto) 1.6 % (0.0-7.0); Hematocrit 27.8 % (34.1-44.9); Hemoglobin 9.6 g/dL (11.2-15.7); Lymphocytes # (Auto) 1.24 K/mcL (1.50-4.80); Lymphocytes % (Auto) 12.7 % (15.5-49.0); Mean Cell Volume 84.8 fL (80.0-100.0); Mean Corpuscular HGB Conc 34.5 g/dL (31.0-36.0); Mean Platelet Volume 8.6 fL (7.4-10.4); Monocytes # (Auto) 1.06 K/mcL (0.10-0.90); Monocytes % (Auto) 10.8 % (1.0-12.0); Neutrophils % (Auto) 74.1 % (38.0-78.0); Platelet Count 520 K/mcL (140-440); RBC 3.28 M/mcL (3.59-5.38); Red Cell Distribution Width 13.1 % (11.5-14.5); WBC 9.8 K/mcL (4.5-11.0)
[2021-07-12] MEDS ORDERED: MELATONIN 3 MG TABLET PO PRN (22:51)
[2021-07-12] MEDS ORDERED: BISACODYL 10 MG SUPP.RECT PR PRN (22:51)
[2021-07-12] MEDS ORDERED: ACETAMINOPHEN 325 MG TABLET PO PRN (22:51)
[2021-07-12] MEDS ORDERED: hydrALAZINE 20 MG/ML VIAL IV PRN (22:51)
[2021-07-12] MEDS ORDERED: ONDANSETRON 4 MG/2 ML VIAL IV PRN (22:51)
[2021-07-12] MEDS ORDERED: ACETAMINOPHEN 650 MG/65 ML BAG IV PRN (22:51)
[2021-07-12] MEDS ORDERED: METOPROLOL TARTRATE 5 MG/5 ML VIAL IV PRN (22:51)
[2021-07-12] MEDS ORDERED: ONDANSETRON 4 MG ODT TABLET SL PRN (22:51)
[2021-07-12] MEDS ORDERED: POTASSIUM CHLORIDE 40 MEQ in DEXTROSE 5% IN WATER 500 ML IV PRN (22:51)
[2021-07-12] MEDS ORDERED: MAGNESIUM SULFATE 2 GM/50 ML BAG IV PRN (22:51)
[2021-07-12] MEDS ORDERED: POLYETHYLENE GLYCOL 3350 17 GM PACKET PO PRN (22:51)
[2021-07-12] MEDS: 0.9 % SODIUM CHLORIDE 10 ML SYRINGE IV SCH (23:17)
[2021-07-13] MEDS: 0.9 % SODIUM CHLORIDE 1,000 ML IV SCH ×2 (00:02→23:53)
[2021-07-13] MEDS ORDERED: ACETAMINOPHEN 1,000 MG/100 ML BAG IV ONE ×2 (02:14→20:28)
[2021-07-13] MEDS ORDERED: HYDROmorphone 0.5 MG/0.5 ML SYRINGE ONE (02:46)
[2021-07-13] MEDS: HYDROmorphone 0.5 MG/0.5 ML SYRINGE IV PRN ×4 (02:49→09:15)
[2021-07-13] MEDS ORDERED: METHOCARBAMOL 1,000 MG/10 ML VIAL IV PRN ×3 (04:36→20:28)
[2021-07-13] MEDS ORDERED: METHOCARBAMOL 1,000 MG/10 ML VIAL ONE (04:42)
[2021-07-13] MEDS: 0.9 % SODIUM CHLORIDE 10 ML SYRINGE IV SCH ×3 (04:44→23:58)
--- NOTE | 2021-07-13 06:01 | XRay Report ---
INDICATION: pre op TECHNIQUE: chest x-ray COMPARISON: None FINDINGS: Lungs:Lungs are negative. No focal pulmonary parenchymal infiltrate or mass Heart, vascular:No significant cardiomegaly. Pulmonary vascularity is normal. No pulmonary edema or pulmonary congestion Mediastinum, genevieve:No mediastinal widening. No hilar mass Pleura:No pleural fluid. No pleural-based mass or calcification Skeletal:Negative. IMPRESSION: 1. Negative AP chest x-ray 2. No significant interval change since 04/17/2021 Interpreted and Authenticated by: Praful Sr 07/13/21
[2021-07-13] MEDS ORDERED: HYDROmorphone 0.5 MG/0.5 ML SYRINGE IV PRN (06:56)
[2021-07-13 07:09] LABS: Basophils # (Auto) 0.05 K/mcL (0.00-0.30); Basophils % (Auto) 0.6 % (0.0-2.0); Eosinophils # (Auto) 0.11 K/mcL (0.00-0.70); Eosinophils % (Auto) 1.4 % (0.0-7.0); Hematocrit 29.1 % (34.1-44.9); Hemoglobin 9.8 g/dL (11.2-15.7); Lymphocytes % (Auto) 14.1 % (15.5-49.0); Mean Cell Volume 85.3 fL (80.0-100.0); Mean Corpuscular HGB Conc 33.7 g/dL (31.0-36.0); Mean Platelet Volume 8.4 fL (7.4-10.4); Monocytes # (Auto) 0.97 K/mcL (0.10-0.90); Monocytes % (Auto) 12.4 % (1.0-12.0); Neutrophils % (Auto) 71.5 % (38.0-78.0); Platelet Count 488 K/mcL (140-440); RBC 3.41 M/mcL (3.59-5.38); Red Cell Distribution Width 13.2 % (11.5-14.5); WBC 7.8 K/mcL (4.5-11.0)
--- NOTE | 2021-07-13 07:16 | Orthopedic History & Physical ---
HPI History of Present Illness Patient information: Note initiated : 07/13/21 at 7:15 am Service Date, if different from initiated Date: [] Patient: Paula Hollis 66 y/o F admitted on 07/12/21 for hip. Chief Complaint: [left hip pain s/p fall ] History of present illness: Patient is a 66-year-old female who presents with chief complaint of left hip pain. Patient had a fall in April, subsequent femoral neck fracture was found and was repaired by Dr. Collins. Patient states she was doing well overall, but a few days ago she fell, landing onto her hip again. She was subsequently transported to [facility] ER where workup revealed repeat fracture of the left hip. Orthopedic surgeon Dr. Ribeiro was contacted and patient was admitted to hospitalist service. Review of Systems All systems: reviewed and no additional remarkable complaints except as stated PFSH PFSH All Active Problems Cellulitis (Acute) Failed hardware (Acute) Hip fracture (Acute) Edema of both lower legs (Acute) Dental abscess (Acute) Fracture of femoral neck, left (Acute) Arthralgia (Chronic) Alopecia (Chronic) Antinuclear factor positive (Chronic) Yeast infection of the vagina (Chronic) UTI (urinary tract infection) (Chronic) Gastroparesis (Chronic) White coat hypertension (Chronic) Systemic lupus erythematosus (Chronic) Rheumatoid arthritis (Chronic) Osteoporosis (Chronic) GERD (gastroesophageal reflux disease) (Chronic) Hypothyroidism (Chronic) Electrolyte imbalance (Chronic) Vitamin D deficiency (Chronic) Anxiety (Chronic) Depression (Chronic) Rash (Chronic) Leg weakness, bilateral (Chronic) Leg pain, bilateral (Chronic) Medical History Alopecia Antinuclear factor positive Anxiety Arthralgia Closed fracture of left hip requiring operative repair Depression Edema of both lower legs Electrolyte imbalance Gastroparesis GERD (gastroesophageal reflux disease) Hypothyroidism Leg pain, bilateral Leg weakness, bilateral Osteoporosis Rash Rheumatoid arthritis Systemic lupus erythematosus UTI (urinary tract infection) Vitamin D deficiency White coat hypertension Yeast infection of the vagina Surgical History History of section 1975, 1981, 1982 & 1988 Family History Mother Muscular wasting and disuse atrophy Father Muscular wasting and disuse atrophy Unknown Diabetes mellitus Alcoholism Social History marital status: single occupational status: retired physical activity: none alcohol intake frequency: holiday/special occasion only substance use type: does not use MEDS/ALLERGIES Home Medications and Allergies Home Medications Medication Instructions Recorded Confirmed Type citalopram 40 mg tablet 40 mg PO QDAY tab 12/24/15 07/12/21 History hydroxychloroquine 200 mg tablet 200 mg PO QDAY tab 12/24/15 07/12/21 History lisinopril 20 1 tab PO QDAY 12/24/15 07/12/21 History mg-hydrochlorothiazide 25 mg tablet pantoprazole 20 mg tablet,delayed 20 mg PO QDAY 12/24/15 07/12/21 History release promethazine 25 mg tablet 25 mg PO TIDP PRN tab 12/24/15 07/12/21 History aspirin 81 mg chewable tablet 81 mg PO BID #60 tab 04/18/21 06/16/21 Rx acetaminophen 500 mg tablet 1,000 mg PO Q6H PRN #60 tab 05/02/21 07/13/21 Rx hydrocodone 7.5 mg-acetaminophen 1 tab PO Q4H PRN #60 tab 05/11/21 06/16/21 Rx 325 mg tablet furosemide 20 mg tablet (Lasix) 20 mg PO QAM PRN #15 tab 06/16/21 06/16/21 Rx cephalexin 500 mg capsule 500 mg PO QID #20 cap 06/18/21 Rx methocarbamol 750 mg tablet 750 mg PO TID #14 tab 06/18/21 Rx cyclobenzaprine 10 mg tablet 10 mg PO QHS 07/12/21 07/12/21 History levothyroxine 75 mcg capsule 75 mcg PO QDAY 07/12/21 07/12/21 History potassium chloride 10 mEq 10 meq PO BID 07/12/21 07/12/21 History capsule,extended release Allergies Allergy/AdvReac Type Severity Reaction Status Date / Time codeine AdvReac Mild Vomiting Verified 07/12/21 18:52 Physical Examination Narrative Narrative: Narrative: Results Labs Result Diagrams: 07/13/21 05:26 07/13/21 05:26 Labs: Abnormal lab results 07/12/21 07/12/21 07/12/21 Range/Units 19:13 21:40 21:41 RBC 3.28 L (3.59-5.38) M/mcL Hgb 9.6 L (11.2-15.7) g/dL Hct 27.8 L (34.1-44.9) % POC Hct 30 L 31 L (36-48) % Plt Count 520 H (140-440) K/mcL Lymph % (Auto) 12.7 L (15.5-49.0) % [place] % (Auto) (1.0-12.0) % Lymph # (Auto) 1.24 L (1.50-4.80) K/mcL [place] # (Auto) 1.06 H (0.10-0.90) K/mcL POC Sodium 128 L 127 L (133-145) mEq/L POC Chloride 90 L 90 L (96-108) mEq/L POC Glucose 111 H (70-105) mg/dL POC WB Ioniz Calcium 1.11 L 1.10 L (1.16-1.32) mmEq/L 07/13/21 Range/Units 05:26 RBC 3.41 L (3.59-5.38) M/mcL Hgb 9.8 L (11.2-15.7) g/dL Hct 29.1 L (34.1-44.9) % POC Hct (36-48) % Plt Count 488 H (140-440) K/mcL Lymph % (Auto) 14.1 L (15.5-49.0) % [place] % (Auto) 12.4 H (1.0-12.0) % Lymph # (Auto) 1.10 L (1.50-4.80) K/mcL [place] # (Auto) 0.97 H (0.10-0.90) K/mcL POC Sodium (133-145) mEq/L POC Chloride (96-108) mEq/L POC Glucose (70-105) mg/dL POC WB Ioniz Calcium (1.16-1.32) mmEq/L H & H 07/12/21 07/13/21 Range/Units 21:41 05:26 Hgb 9.6 L 9.8 L (11.2-15.7) g/dL Hct 27.8 L 29.1 L (34.1-44.9) % All other labs normal. A/P Narrative A/P Narrative: On exam patient is resting in bed in mild distress. mucous membranes are moist, pupils are LISY. head, neck, chest, abdomen, bilat upper extremities and right hip pelvis are non-tender to palpation and exhibit normal range of motion. Heart is normal rate and rhythm, lungs are equal and clear bilaterally. At the left hip and pelvis area there is tenderness to palpation and with any ROM. Both lower extremities are warm, well perfused and neuro intact. Options were presented to the patient including non-surgical and surgical option. Non-surgical carries the risks of further damage to nerves/ blood vessels, loss of ROM/ mobility and increased pain. Surgical option consisting of open reduction internal fixation via left hip revision total arthroplasty. . At this time patient is interested in surgery. Plan is for left hip open reduction internal fixation via left hip revision total arthroplasty to take place semi-urgently with Dr. Gema mckoy and Jarred BIANCHI. Surgical risks were explained to the patient to include but not limited to: pain, bleeding, infection, injury to adjacent structures including nerves and blood vessels. implant failure, need for further surgery, stroke risk, cardiac complication including heart attack or AK, pulmonary complications including pneumonia and pulmonary embolism, DVT and . Patient verbalizes understanding of these risks and wishes to proceed with surgery. Time Spent With Patient Time: Total time spent is greater than 50% in coordination of care (as documented) at patient's floor/unit and/or counseling patient:
[2021-07-13 07:42] LABS: ALT/SGPT 17 U/L (<40); AST/SGOT 30 U/L (<32); Albumin 3.7 gm/dL (3.2-5.2); Alkaline Phosphatase 123 U/L (39-117); Bilirubin,Direct < 0.2 mg/dL (0-0.3); Bilirubin,Total 0.7 mg/dL (0.1-1.0); Blood Urea Nitrogen 15 mg/dL (8-23); Calcium 9.2 mg/dL (8.6-10.4); Carbon Dioxide 23 mmol/L (22-30); Chloride 91 mmol/L (96-108); Globulin 3.6 gm/dL (2.2-3.7); Glomerular Filtration Rate 78; Glucose 105 mg/dL (70-105); Lactate Dehydrogenase 390 U/L (135-225); Phosphorous 3.5 mg/dL (2.5-4.5); Triglycerides 57 mg/dL (<150); Uric Acid 3.8 mg/dL (2.5-8.0)
[2021-07-13] MEDS: MULTIVIT,THER IRON,CA,FA & MIN 1 TABLET PO SCH (08:17)
[2021-07-13] MEDS: DOCUSATE SODIUM 100 MG CAPSULE PO SCH (08:17)
[2021-07-13] MEDS: HEPARIN 5,000 UNIT/ML VIAL SQ SCH (08:17)
[2021-07-13] MEDS ORDERED: LORazepam 2 MG/ML VIAL IV ONE (09:23)
[2021-07-13] MEDS ORDERED: KETAMINE 50 MG/ML ML IM ONE (09:23)
[2021-07-13] MEDS ORDERED: ceFAZolin 2 GM in DEXTROSE 5% IN WATER 50 ML IV SCH (17:15)
[2021-07-13] MEDS ORDERED: KETAMINE 50 MG/ML Syringe (ANEST) IV ONE (17:40)
[2021-07-13] MEDS ORDERED: ONDANSETRON 4 MG/2 ML VIAL ONE (17:40)
[2021-07-13] MEDS ORDERED: fentaNYL 250 MCG/5 ML VIAL IV ONE (17:40)
[2021-07-13] MEDS ORDERED: DEXAMETHASONE 10 MG/ML VIAL ONE (17:40)
[2021-07-13] MEDS ORDERED: HYDROmorphone* 2 MG/ML VIAL ONE (17:40)
[2021-07-13] MEDS ORDERED: GLYCOPYRROLATE 0.2 MG/ML VIAL IV ONE (17:40)
[2021-07-13] MEDS ORDERED: ROCURONIUM 10 MG/ML ML IV ONE (17:40)
[2021-07-13] MEDS ORDERED: ROPIVACAINE HCL/PF 20 ML VIAL IJ ONE (17:40)
[2021-07-13] MEDS ORDERED: SUCCINYLCHOLINE 20 MG/ML ML IV ONE (17:40)
[2021-07-13] MEDS ORDERED: MAGNESIUM SULFATE 2 GM/50 ML BAG IV ONE (17:40)
[2021-07-13] MEDS ORDERED: TRANEXAMIC ACID 1,000 MG/10 ML VIAL ONE (17:40)
[2021-07-13] MEDS ORDERED: LIDOCAINE HCL/PF 100 MG/5 ML SYRINGE IV ONE (17:40)
[2021-07-13] MEDS ORDERED: PHENYLephrine 1 MG/10 ML SYRINGE (ANEST) ONE (17:40)
[2021-07-13] MEDS ORDERED: PROPOFOL 200 MG/20 ML VIAL IV ONE (17:40)
[2021-07-13] MEDS ORDERED: GENTAMICIN SULFATE 800 MG/20 ML VIAL IR ONE (18:23)
[2021-07-13] MEDS ORDERED: LACTATED RINGERS 250 ML IV PRN (20:28)
[2021-07-13] MEDS ORDERED: FLUMAZENIL 0.1 MG/ML ML IV PRN (20:28)
[2021-07-13] MEDS ORDERED: NALOXONE HCL 0.4 MG/ML VIAL IV PRN (20:28)
[2021-07-13] MEDS ORDERED: METOPROLOL TARTRATE 5 MG/5 ML VIAL IV PRN (20:28)
[2021-07-13] MEDS ORDERED: IPRATROPIUM/ALBUTEROL 3 ML AMPUL.NEB NEB PRN (20:28)
[2021-07-13] MEDS ORDERED: LABETALOL 5 MG/ML ML IV PRN (20:28)
[2021-07-13] MEDS ORDERED: BENZOCAINE/MENTHOL 1 LOZENGE PO PRN ×2 (20:28→20:30)
--- NOTE | 2021-07-13 20:29 | General Surgery Procedure Note ---
Date of procedure: Note initiated : 07/13/21 at 8:28 pm Service Date, if different from initiated Date: [] Pre-op diagnosis: left hip failed nailing for intertrochanteric fracture Post-op diagnosis: same Procedure: left hip hardware removal and conversion from hip fracture to total hip arthroplasty Anesthesia: TARA Surgeon: Praful Ribeiro Insurance Sales Associate: Frederic Morrell Estimated blood loss: 350 Pathology: none sent Condition: stable Disposition: PACU
[2021-07-13] MEDS ORDERED: LACTATED RINGERS 1,000 ML IV SCH (20:30)
[2021-07-13] MEDS ORDERED: FLEETS ADULT ENEMA PR PRN (20:30)
[2021-07-13] MEDS ORDERED: ONDANSETRON 4 MG ODT TABLET SL PRN (20:30)
[2021-07-13] MEDS ORDERED: TRANEXAMIC ACID 1,000 MG/10 ML VIAL IV ONE (20:30)
[2021-07-13] MEDS ORDERED: MAGNESIUM HYDROXIDE 30 ML ORAL.SUSP PO PRN (20:30)
[2021-07-13] MEDS ORDERED: ONDANSETRON 4 MG/2 ML VIAL IV PRN (20:30)
[2021-07-13] MEDS ORDERED: POLYETHYLENE GLYCOL 3350 17 GM PACKET PO PRN (20:30)
[2021-07-13] MEDS ORDERED: BISACODYL 10 MG SUPP.RECT PR PRN (20:30)
--- NOTE | 2021-07-13 20:30 | Discharge Plan ---
Discharge Instructions - ROMI Patient Instructions Total Hip Protocol: Follow activity instructions as provided by Physical Therapy. Dressing Care: May shower in 2 days Discharge Plan Patient/Caregiver Discharge Instructions Activity: ambulate only with your walker and as per physical therapy Diet: Regular Diet Prescriptions: No Action hydrocodone-acetaminophen 7.5-325 mg tablet 1 tab PO Q4H PRN (Reason: pain) Qty: 60 0RF citalopram 40 mg tablet 40 mg PO QDAY 0RF pantoprazole 20 mg tablet,delayed release (DR/EC) 20 mg PO QDAY 0RF promethazine 25 mg tablet 25 mg PO TIDP PRN (Reason: Nausea) 0RF lisinopril-hydrochlorothiazide 20-25 mg tablet 1 tab PO QDAY 0RF hydroxychloroquine 200 mg tablet 200 mg PO QDAY 0RF furosemide [Lasix] 20 mg tablet 20 mg PO QAM PRN (Reason: edema) Qty: 15 0RF aspirin 81 mg tablet,chewable 81 mg PO BID Qty: 60 0RF acetaminophen 500 mg tablet 1,000 mg PO Q6H PRN (Reason: pain) Qty: 60 0RF methocarbamol 750 mg tablet 750 mg PO TID Qty: 14 0RF cephalexin 500 mg capsule 500 mg PO QID Qty: 20 0RF cyclobenzaprine 10 mg tablet 10 mg PO QHS 0RF potassium chloride 10 mEq Capsule, Extended Release 10 meq PO BID 0RF levothyroxine 75 mcg Capsule 75 mcg PO QDAY 0RF Follow Up Plan Follow up with: Diane Weldon ARNP [Primary Care Provider] - Patient Disposition: Xfer SNF Rehab Potential: Good I certify that the patient requires SNF services: Yes Overall status at discharge: patient is progressing back to baseline Discharge Orders: Discharge Order (Routine); Ordered 07/13/21 Ordered By: Praful Ribeiro Discharge Comment: cc: left hip fracture s/p romi
[2021-07-13] MEDS ORDERED: ASPIRIN 325 MG ENTERIC COATED TABLET PO SCH (21:00)
[2021-07-13] MEDS ORDERED: SENNOSIDES/DOCUSATE SODIUM 1 TAB TABLET PO SCH (21:00)
[2021-07-13] MEDS: fentaNYL 100 MCG/2 ML VIAL IV PRN ×2 (21:17→21:28)
--- NOTE | 2021-07-13 22:08 | Internal Med Progress Note ---
SUBJECTIVE Subjective Patient information: Note initiated : 07/13/21 at 10:06 pm Service Date, if different from initiated Date: [] Patient: Paula Hollis 66 y/o F admitted on 07/13/21 for hip. Chief Complaint: [] Interval history: Ms. Hollis is a 66 year old F with a complex medical history of rheumatoid arthritis/alopecia/hypertension/hypothyroidism/DJD/anxiety disorder who presents to the ER after experiencing worsening pain and difficulty weightbearing over the last few days. Patient apparently had a fall in April and underwent a femoral neck fracture repair. She was recovering well until she had a fall a few days ago following which she continues to experience difficulty ambulation/increasing pain in the recent she presents to the ER. Initial work-up was consistent with screw migration of the prosthesis on hip imaging along with a fracture. Orthopedic was consulted and requested admission for operative intervention. Hospitalist service was consulted to facilitate hospitalization and comanagement of multiple medical issues At the time of evaluation patient is alert and oriented. She was able to answer most the questions and endorse history as above. She denies lightheadedness dizziness, fever, chills, shortness breath, hemoptysis, diarrhea, abdominal pain or chest pain. 07/13-patient in significant pain secondary to fracture. Continuing IV opioid/ketamine/lorazepam for pain relief. Currently n.p.o. until surgery. Will review postop. No overnight fever chills. Stable labs and hemodynamics. Sodium 127, no concerns expressed by nursing staff Constitutional Vitals: Vital Signs Temp Pulse Resp BP Pulse Ox 98.2 F 89 19 130/75 91 07/13/21 16:12 07/13/21 22:02 07/13/21 22:02 07/13/21 22:01 07/13/21 22:02 Period Temp Pulse Resp BP Sys/Hurley Pulse Ox Last 24 Hr 96.7 F-98.6 F 66-113 9-32 102-150/61-136 82-100 Intake and Output 07/13/21 07/13/21 07/14/21 13:59 21:59 05:59 Intake Total 2950 200 Output Total 800 2800 Balance -800 150 200 Weight 73.527 kg Patient Weight 07/14/21 05:59 Weight 73.527 kg Anxious and distressed Nonlabored breathing No lymphedema Intake & Output: Intake & Output 07/13/21 07/13/21 07/14/21 13:59 21:59 05:59 Intake Total 2950 200 Output Total 800 2800 Balance -800 150 200 Weight 73.527 kg Intake: IV 150 Ancef 2 gm In Dextrose 5% in 50 Water 50 ml @ 100 mls/hr IV PREOP [facility] Rx#:[id number] IV - Manual Only 2800 200 Output: Urine Catheter Amount 800 2500 Uretheral (Duran) 800 Estimated Blood Loss 300 Other: Urine Appearance Clear Uretheral (Duran) Clear Urine Color Straw Uretheral (Duran) Bright Yellow Urine Odor Normal Uretheral (Duran) Strong OBJ DATA Labs CBC & Chem 7: 07/14/21 05:52 07/14/21 05:52 Labs: Abnormal Lab Results 07/13/21 07/13/21 07/12/21 05:26 05:26 21:41 RBC 3.41 L 3.28 L Hgb 9.8 L 9.6 L Hct 29.1 L 27.8 L POC Hct Plt Count 488 H 520 H Lymph % (Auto) 14.1 L 12.7 L [place] % (Auto) 12.4 H Lymph # (Auto) 1.10 L 1.24 L [place] # (Auto) 0.97 H 1.06 H POC Sodium Sodium 127 L POC Chloride Chloride 91 L POC Glucose POC WB Ioniz Calcium Alkaline Phosphatase 123 H Lactate Dehydrogenase 390 H 07/12/21 07/12/21 21:40 19:13 RBC Hgb Hct POC Hct 31 L 30 L Plt Count Lymph % (Auto) [place] % (Auto) Lymph # (Auto) [place] # (Auto) POC Sodium 127 L 128 L Sodium POC Chloride 90 L 90 L Chloride POC Glucose 111 H POC WB Ioniz Calcium 1.10 L 1.11 L Alkaline Phosphatase Lactate Dehydrogenase Meds: Medications Acetaminophen (Acetaminophen 325 Mg Tablet) 650 mg PO Q4-6HP PRN; Protocol PRN Reason: Per Pain Protocol/Fever > 101 Hydrocodone Bitart/Acetaminophen (Hydrocodone/Apap 10/325mg Tablet) 1 - 2 tab PO Q4HP PRN; Protocol PRN Reason: Per Pain Protocol Albuterol/Ipratropium (Ipratropium/Albuterol 3 Ml Ampul.Neb) 3 ml NEB ONCE PRN PRN Reason: Wheezing Stop: 07/13/21 22:28 Aspirin (Aspirin 81 Mg Tab.Chew) 81 mg PO BID [facility] Bisacodyl (Bisacodyl 10 Mg Supp.Rect) 10 mg ME Q2-3DAYS PRN PRN Reason: Constipation Cefazolin Sodium (Cefazolin 1 Gm Vial) 2 gm IV Q8H [facility] Stop: 07/14/21 09:01 Docusate Sodium (Docusate Sodium 100 Mg Capsule) 100 mg PO BID [facility] Fentanyl (Fentanyl 100 Mcg/2 Ml Vial) 25 mcg IV Q2M PRN PRN Reason: Pain Stop: 07/13/21 22:29 Last Admin: 07/13/21 21:28 Dose: 25 mcg Documented by: Flumazenil (Flumazenil 0.1 Mg/Ml Ml) 0.1 mg IV Q2MIN PRN PRN Reason: BENZODIAZEPINE REVERSAL Stop: 07/13/21 22:29 Hydralazine HCl (Hydralazine 20 Mg/Ml Vial) 10 mg IV Q4-6HP PRN PRN Reason: Hypertension Potassium Chloride 40 meq/ (Dextrose) 520 mls @ 130 mls/hr IV UD PRN PRN Reason: K+ = or < 3.5 Acetaminophen (Ofirmev) 650 mg in 65 mls @ 130 mls/hr IV Q6HP PRN; Protocol PRN Reason: Per Pain Protocol/Fever > 101 Last Infusion: 07/13/21 03:25 Dose: Infused Documented by: Magnesium Sulfate (Magnesium Sulfate) 2 gm in 50 mls @ 50 mls/hr IV UD PRN PRN Reason: MG = or < 1.7 Sodium Chloride (Sodium Chloride 0.9%) 1,000 mls @ 50 mls/hr IV .Q20H [facility] Stop: 07/15/21 10:50 Last Admin: 07/13/21 00:02 Dose: 50 mls/hr Documented by: Lactated Ringer's (Lactated Ringers) 1,000 mls @ 0 mls/hr IV PRN PRN PRN Reason: Hypovolemia Stop: 07/13/21 22:28 Lactated Ringer's (Lactated Ringers) 1,000 mls @ 20 mls/hr IV .Q24H [facility] Stop: 07/13/21 22:28 Last Admin: 07/13/21 22:00 Dose: 20 mls/hr Documented by: Lactated Ringer's (Lactated Ringers) 1,000 mls @ 125 mls/hr IV .Q8H [facility] Iron Carb/Multivit/[place]/Folic Acid (Multivit,Ther Iron,Ca,Fa & Min 1 Tablet) 1 tab PO DAILY [facility] Last Admin: 07/13/21 08:17 Dose: Not Given Documented by: Ketorolac Tromethamine (Ketorolac 15 Mg/Ml Vial) 15 mg IV Q6HP PRN; Protocol PRN Reason: Pain Stop: 07/15/21 20:32 Labetalol HCl (Labetalol 5 Mg/Ml Ml) 5 mg IV Q5MIN PRN PRN Reason: SBP > 160 Stop: 07/13/21 22:29 Magnesium Hydroxide (Magnesium Hydroxide 30 Ml Oral.Susp) 30 ml PO BIDP PRN PRN Reason: Constipation Melatonin (Melatonin 3 Mg Tablet) 3 mg PO HSP PRN PRN Reason: Insomnia Methocarbamol (Methocarbamol 1,000 Mg/10 Ml Vial) 750 mg IV ONCE PRN PRN Reason: Muscle Spasm Stop: 07/13/21 22:29 Last Admin: 07/13/21 21:32 Dose: 750 mg Documented by: Methocarbamol (Methocarbamol 750 Mg Tablet) 750 mg PO Q6HP PRN PRN Reason: Muscle Spasm Metoprolol Tartrate (Metoprolol Tartrate 5 Mg/5 Ml Vial) 5 mg IV Q5M PRN PRN Reason: Heart Rate > 140 bpm Metoprolol Tartrate (Metoprolol Tartrate 5 Mg/5 Ml Vial) 2.5 mg IV Q5MIN PRN PRN Reason: Tachyarrhythmias Stop: 07/13/21 22:29 Morphine Sulfate (Morphine 4 Mg/Ml Vial) 2 - 6 mg IV Q1HP PRN; Protocol PRN Reason: Per Pain Protocol Naloxone HCl (Naloxone Hcl 0.4 Mg/Ml Vial) 0.1 mg IV Q2MIN PRN PRN Reason: Opiate Reversal Stop: 07/13/21 22:29 Ondansetron HCl (Ondansetron 4 Mg/2 Ml Vial) 4 mg IV Q4HP PRN; Protocol PRN Reason: Nausea And Vomiting Ondansetron HCl (Ondansetron 4 Mg Odt Tablet) 4 mg SL Q4HP PRN; Protocol PRN Reason: Nausea And Vomiting Polyethylene Glycol (Polyethylene Glycol 3350 17 Gm Packet) 17 gm PO DAILYP PRN PRN Reason: Constipation Senna (Sennosides 1 Tablet) 2 tab PO HS [facility] Sodium Biphosphate/Sodium Phosphate (Fleets Adult Enema) 1 dose ME Q3-4DAYS PRN PRN Reason: Constipation Sodium Chloride (0.9 % Sodium Chloride 10 Ml Syringe) 10 ml IV Q8 [facility] Throat Lozenges (Benzocaine/Menthol 1 Lozenge) 1 lozenge PO PRN PRN PRN Reason: Sore Throat Stop: 07/13/21 22:29 Throat Lozenges (Benzocaine/Menthol 1 Lozenge) 1 lozenge PO PRN PRN PRN Reason: Sore Throat A/P Narrative A/P Narrative: * Left hip fracture dislocation, surgery today. Postop care per surgery * Pain management on as needed opioids/ketamine/lorazepam * Hypothyroidism continue thyroxine * History of SLE/RA/alopecia on Plaquenil * Hypertension continue antihypertensives postoperatively. * GERD continue PPI * Anxiety disorder continue citalopram Plan * Review postop * Postop care per orthopedics * Pain management IV morphine/ketamine/lorazepam until surgery * Pre-existing medical condition management as above * PT OT nutrition support * Discharge planning per case management Time Spent With Patient Time: Total time spent is greater than 50% in coordination of care (as documented) at patient's floor/unit and/or counseling patient:
[2021-07-13] MEDS: LACTATED RINGERS 1,000 ML IV SCH (23:56)
[2021-07-14] MEDS: ceFAZolin 1 GM VIAL IV SCH ×2 (00:29→09:11)
[2021-07-14] MEDS: KETOROLAC 15 MG/ML VIAL IV PRN ×2 (00:30→20:12)
[2021-07-14] MEDS: DOCUSATE SODIUM 100 MG CAPSULE PO SCH ×4 (00:31→20:23)
[2021-07-14] MEDS: SENNOSIDES 1 TABLET PO SCH ×2 (00:31→20:23)
[2021-07-14] MEDS: ASPIRIN 81 MG TAB.CHEW PO SCH ×3 (00:32→20:23)
[2021-07-14] MEDS: HEPARIN 5,000 UNIT/ML VIAL SQ SCH (01:24)
[2021-07-14] MEDS: LACTATED RINGERS 1,000 ML IV SCH ×5 (03:11→22:55)
[2021-07-14] MEDS: HYDROcodone/APAP 10/325MG TABLET PO PRN ×3 (03:47→17:49)
[2021-07-14] MEDS: METHOCARBAMOL 750 MG TABLET PO PRN ×2 (03:47→17:49)
--- NOTE | 2021-07-14 04:50 | XRay Report ---
INDICATION: Post-Op Total Hip TECHNIQUE: Intraoperative AP pelvis for measurement. Postoperative AP pelvis, AP and crosstable lateral left hip COMPARISON: Preoperative examination dated 07/12/2021 FINDINGS: Status post revision of left gamma nail. Present examination demonstrates left hemihip arthroplasty. There is anatomic alignment. IMPRESSION: 1. Revision of left gamma nail 2. Left hemihip arthroplasty Interpreted and Authenticated by: Praful Sr 07/14/21
[2021-07-14] MEDS: 0.9 % SODIUM CHLORIDE 10 ML SYRINGE IV SCH ×3 (05:29→20:24)
[2021-07-14 07:31] LABS: Basophils # (Auto) 0.02 K/mcL (0.00-0.30); Basophils % (Auto) 0.2 % (0.0-2.0); Eosinophils # (Auto) 0 K/mcL (0.00-0.70); Eosinophils % (Auto) 0 % (0.0-7.0); Hematocrit 21.7 % (34.1-44.9); Lymphocytes # (Auto) 0.87 K/mcL (1.50-4.80); Lymphocytes % (Auto) 9.3 % (15.5-49.0); Mean Cell Volume 89.7 fL (80.0-100.0); Mean Corpuscular HGB Conc 32.3 g/dL (31.0-36.0); Mean Platelet Volume 9.3 fL (7.4-10.4); Monocytes # (Auto) 0.85 K/mcL (0.10-0.90); Monocytes % (Auto) 9.1 % (1.0-12.0); Neutrophils % (Auto) 81.4 % (38.0-78.0); Platelet Count 323 K/mcL (140-440); RBC 2.42 M/mcL (3.59-5.38); Red Cell Distribution Width 13.7 % (11.5-14.5); WBC 9.4 K/mcL (4.5-11.0)
[2021-07-14 07:41] LABS: ALT/SGPT 19 U/L (<40); AST/SGOT 45 U/L (<32); Albumin 2.8 gm/dL (3.2-5.2); Alkaline Phosphatase 84 U/L (39-117); Bilirubin,Direct < 0.2 mg/dL (0-0.3); Bilirubin,Total 0.4 mg/dL (0.1-1.0); Blood Urea Nitrogen 12 mg/dL (8-23); Calcium 7.9 mg/dL (8.6-10.4); Carbon Dioxide 20 mmol/L (22-30); Chloride 94 mmol/L (96-108); Globulin 2.7 gm/dL (2.2-3.7); Glomerular Filtration Rate 78; Glucose 124 mg/dL (70-105); Lactate Dehydrogenase 320 U/L (135-225); Phosphorous 3.6 mg/dL (2.5-4.5); Triglycerides 72 mg/dL (<150); Uric Acid 4.5 mg/dL (2.5-8.0)
--- NOTE | 2021-07-14 07:48 | Orthopedic Progress Note ---
SUBJECTIVE Subjective Patient information: Note initiated : 07/14/21 at 7:44 am Service Date, if different from initiated Date: [] Patient: Paula Hollis 66 y/o F admitted on 07/13/21 for hip. Chief Complaint: [] Constitutional Vitals: Vital Signs Temp Pulse Resp BP Pulse Ox 97.7 F 102 H 12 120/59 95 07/14/21 04:30 07/14/21 04:30 07/14/21 04:30 07/14/21 04:30 07/14/21 04:30 Period Temp Pulse Resp BP Sys/Hurley Pulse Ox Last 24 Hr 96.6 F-98.2 F 66-111 9-32 97-143/53-87 82-100 Intake and Output 07/13/21 07/14/21 07/14/21 21:59 05:59 13:59 Intake Total 2950 1550 965 Output Total 2800 400 Balance 150 1150 965 Weight 188 lb 3.2 oz Intake & Output: Intake & Output 07/13/21 07/14/21 07/14/21 21:59 05:59 13:59 Intake Total 2950 1550 965 Output Total 2800 400 Balance 150 1150 965 Weight 188 lb 3.2 oz Intake: IV 150 1000 965 Sodium Chloride 0.9% 1,000 ml @ 1000 50 mls/hr IV .Q20H [facility] Rx#: [id number] Lactated Ringers 1,000 ml @ 125 965 mls/hr IV .Q8H [facility] Rx#: [id number] Ancef 2 gm In Dextrose 5% in 50 Water 50 ml @ 100 mls/hr IV PREOP [facility] Rx#:[id number] Oral 350 IV - Manual Only 2800 200 Output: Urine Catheter Amount 2500 400 Estimated Blood Loss 300 Other: Urine Appearance Clear Clear Uretheral (Duran) Clear Urine Color Straw Bright Yellow Uretheral (Duran) Bright Yellow Urine Odor Normal Normal OBJ DATA Labs CBC & Chem 7: 07/14/21 05:52 07/14/21 05:52 Labs: Abnormal Lab Results 07/14/21 07/14/21 07/13/21 05:52 05:52 05:26 RBC 2.42 L Hgb 7.0 L* Hct 21.7 L POC Hct Plt Count Neut % (Auto) 81.4 H Lymph % (Auto) 9.3 L [place] % (Auto) Lymph # (Auto) 0.87 L [place] # (Auto) POC Sodium Sodium 128 L 127 L POC Chloride Chloride 94 L 91 L Carbon Dioxide 20 L Glucose 124 H POC Glucose Calcium 7.9 L POC WB Ioniz Calcium AST 45 H Alkaline Phosphatase 123 H Lactate Dehydrogenase 320 H 390 H Total Protein 5.5 L Albumin 2.8 L 07/13/21 07/12/21 07/12/21 05:26 21:41 21:40 RBC 3.41 L 3.28 L Hgb 9.8 L 9.6 L Hct 29.1 L 27.8 L POC Hct 31 L Plt Count 488 H 520 H Neut % (Auto) Lymph % (Auto) 14.1 L 12.7 L [place] % (Auto) 12.4 H Lymph # (Auto) 1.10 L 1.24 L [place] # (Auto) 0.97 H 1.06 H POC Sodium 127 L Sodium POC Chloride 90 L Chloride Carbon Dioxide Glucose POC Glucose Calcium POC WB Ioniz Calcium 1.10 L AST Alkaline Phosphatase Lactate Dehydrogenase Total Protein Albumin 07/12/21 19:13 RBC Hgb Hct POC Hct 30 L Plt Count Neut % (Auto) Lymph % (Auto) [place] % (Auto) Lymph # (Auto) [place] # (Auto) POC Sodium 128 L Sodium POC Chloride 90 L Chloride Carbon Dioxide Glucose POC Glucose 111 H Calcium POC WB Ioniz Calcium 1.11 L AST Alkaline Phosphatase Lactate Dehydrogenase Total Protein Albumin Meds: Medications Acetaminophen (Acetaminophen 325 Mg Tablet) 650 mg PO Q4-6HP PRN; Protocol PRN Reason: Per Pain Protocol/Fever > 101 Hydrocodone Bitart/Acetaminophen (Hydrocodone/Apap 10/325mg Tablet) 1 - 2 tab PO Q4HP PRN; Protocol PRN Reason: Per Pain Protocol Last Admin: 07/14/21 07:38 Dose: 1 tab Documented by: Aspirin (Aspirin 81 Mg Tab.Chew) 81 mg PO BID [facility] Last Admin: 07/14/21 00:32 Dose: 81 mg Documented by: Bisacodyl (Bisacodyl 10 Mg Supp.Rect) 10 mg MA Q2-3DAYS PRN PRN Reason: Constipation Cefazolin Sodium (Cefazolin 1 Gm Vial) 2 gm IV Q8H [facility] Stop: 07/14/21 09:01 Last Admin: 07/14/21 00:29 Dose: 2 gm Documented by: Docusate Sodium (Docusate Sodium 100 Mg Capsule) 100 mg PO BID [facility] Last Admin: 07/14/21 00:31 Dose: 100 mg Documented by: Hydralazine HCl (Hydralazine 20 Mg/Ml Vial) 10 mg IV Q4-6HP PRN PRN Reason: Hypertension Potassium Chloride 40 meq/ (Dextrose) 520 mls @ 130 mls/hr IV UD PRN PRN Reason: K+ = or < 3.5 Acetaminophen (Ofirmev) 650 mg in 65 mls @ 130 mls/hr IV Q6HP PRN; Protocol PRN Reason: Per Pain Protocol/Fever > 101 Last Infusion: 07/13/21 03:25 Dose: Infused Documented by: Magnesium Sulfate (Magnesium Sulfate) 2 gm in 50 mls @ 50 mls/hr IV UD PRN PRN Reason: MG = or < 1.7 Sodium Chloride (Sodium Chloride 0.9%) 1,000 mls @ 50 mls/hr IV .Q20H [facility] Stop: 07/15/21 10:50 Last Infusion: 07/14/21 05:29 Dose: Infused Documented by: Lactated Ringer's (Lactated Ringers) 1,000 mls @ 125 mls/hr IV .Q8H [facility] Last Admin: 07/14/21 07:39 Dose: 125 mls/hr Documented by: Iron Carb/Multivit/[place]/Folic Acid (Multivit,Ther Iron,Ca,Fa & Min 1 Tablet) 1 tab PO DAILY [facility] Last Admin: 07/13/21 08:17 Dose: Not Given Documented by: Ketorolac Tromethamine (Ketorolac 15 Mg/Ml Vial) 15 mg IV Q6HP PRN; Protocol PRN Reason: Pain Stop: 07/15/21 20:32 Last Admin: 07/14/21 00:30 Dose: 15 mg Documented by: Magnesium Hydroxide (Magnesium Hydroxide 30 Ml Oral.Susp) 30 ml PO BIDP PRN PRN Reason: Constipation Melatonin (Melatonin 3 Mg Tablet) 3 mg PO HSP PRN PRN Reason: Insomnia Methocarbamol (Methocarbamol 750 Mg Tablet) 750 mg PO Q6HP PRN PRN Reason: Muscle Spasm Last Admin: 07/14/21 03:47 Dose: 750 mg Documented by: Metoprolol Tartrate (Metoprolol Tartrate 5 Mg/5 Ml Vial) 5 mg IV Q5M PRN PRN Reason: Heart Rate > 140 bpm Morphine Sulfate (Morphine 4 Mg/Ml Vial) 2 - 6 mg IV Q1HP PRN; Protocol PRN Reason: Per Pain Protocol Ondansetron HCl (Ondansetron 4 Mg/2 Ml Vial) 4 mg IV Q4HP PRN; Protocol PRN Reason: Nausea And Vomiting Ondansetron HCl (Ondansetron 4 Mg Odt Tablet) 4 mg SL Q4HP PRN; Protocol PRN Reason: Nausea And Vomiting Polyethylene Glycol (Polyethylene Glycol 3350 17 Gm Packet) 17 gm PO DAILYP PRN PRN Reason: Constipation Senna (Sennosides 1 Tablet) 2 tab PO HS [facility] Last Admin: 07/14/21 00:31 Dose: 2 tab Documented by: Sodium Biphosphate/Sodium Phosphate (Fleets Adult Enema) 1 dose MA Q3-4DAYS PRN PRN Reason: Constipation Sodium Chloride (0.9 % Sodium Chloride 10 Ml Syringe) 10 ml IV Q8 [facility] Last Admin: 07/14/21 05:29 Dose: Not Given Documented by: Throat Lozenges (Benzocaine/Menthol 1 Lozenge) 1 lozenge PO PRN PRN PRN Reason: Sore Throat A/P Narrative A/P Narrative: Patient seen and examined this am. Awake, alert, and cooperative. Patient is trending back to baseline. Has expected post-op pain but feels it is well managed on current regimen. Dressing at [facility] clean dry and intact. wedge not in place, but replaced. Both lower extremities are warm, well perfused and neuro intact. weight bearing as tolerated with posterior hip precautions. Plan is for expected discharge in 1-2 days to rehab facility with follow up at [facility] in 10-14 days. Time Spent With Patient Time: Total time spent is greater than 50% in coordination of care (as documented) at patient's floor/unit and/or counseling patient:
--- NOTE | 2021-07-14 07:59 | Internal Med Progress Note ---
SUBJECTIVE Subjective Patient information: Note initiated : 07/14/21 at 7:57 am Service Date, if different from initiated Date: [] Patient: Paula Hollis 66 y/o F admitted on 07/13/21 for hip. Chief Complaint: [] Interval history: Ms. Hollis is a 66 year old F with a complex medical history of rheumatoid arthritis/alopecia/hypertension/hypothyroidism/DJD/anxiety disorder who presents to the ER after experiencing worsening pain and difficulty weightbearing over the last few days. Patient apparently had a fall in April and underwent a femoral neck fracture repair. She was recovering well until she had a fall a few days ago following which she continues to experience difficulty ambulation/increasing pain in the recent she presents to the ER. Initial work-up was consistent with screw migration of the prosthesis on hip imaging along with a fracture. Orthopedic was consulted and requested admission for operative intervention. Hospitalist service was consulted to facilitate hospitalization and comanagement of multiple medical issues At the time of evaluation patient is alert and oriented. She was able to answer most the questions and endorse history as above. She denies lightheadedness dizziness, fever, chills, shortness breath, hemoptysis, diarrhea, abdominal pain or chest pain. 07/13-patient in significant pain secondary to fracture. Continuing IV opioid/ketamine/lorazepam for pain relief. Currently n.p.o. until surgery. Will review postop. No overnight fever chills. Stable labs and hemodynamics. Sodium 127, no concerns expressed by nursing staff 07/14-patient postop day 1. Postop pain well controlled. Hemoglobin down to 7. 2 units blood transfusion today. Continue postop care per orthopedic/physical therapy. Sodium 128 likely secondary to pain mediated ADH response. Continue nutrition support, case management coordinate SNF transfer Constitutional Vitals: Vital Signs Temp Pulse Resp BP Pulse Ox 97.7 F 102 H 12 120/59 95 07/14/21 04:30 07/14/21 04:30 07/14/21 04:30 07/14/21 04:30 07/14/21 04:30 Period Temp Pulse Resp BP Sys/Hurley Pulse Ox Last 24 Hr 96.6 F-98.2 F 66-111 9-32 97-143/53-87 82-100 Intake and Output 07/13/21 07/14/21 07/14/21 21:59 05:59 13:59 Intake Total 2950 1550 965 Output Total 2800 400 Balance 150 1150 965 Weight 85.366 kg doing well postop Nonlabored breathing No anxiety Pallor noted No lymphedema Intake & Output: Intake & Output 07/13/21 07/14/21 07/14/21 21:59 05:59 13:59 Intake Total 2950 1550 965 Output Total 2800 400 Balance 150 1150 965 Weight 85.366 kg Intake: IV 150 1000 965 Sodium Chloride 0.9% 1,000 ml @ 1000 50 mls/hr IV .Q20H LUCIA Rx#: [id number] Lactated Ringers 1,000 ml @ 125 965 mls/hr IV .Q8H LUCIA Rx#: [id number] Ancef 2 gm In Dextrose 5% in 50 Water 50 ml @ 100 mls/hr IV PREOP LUCIA Rx#:[id number] Oral 350 IV - Manual Only 2800 200 Output: Urine Catheter Amount 2500 400 Estimated Blood Loss 300 Other: Urine Appearance Clear Clear Uretheral (Duran) Clear Urine Color Straw Bright Yellow Uretheral (Duran) Bright Yellow Urine Odor Normal Normal OBJ DATA Labs CBC & Chem 7: 07/14/21 05:52 07/14/21 05:52 Labs: Abnormal Lab Results 07/14/21 07/14/21 07/13/21 05:52 05:52 05:26 RBC 2.42 L Hgb 7.0 L* Hct 21.7 L POC Hct Plt Count Neut % (Auto) 81.4 H Lymph % (Auto) 9.3 L [place] % (Auto) Lymph # (Auto) 0.87 L [place] # (Auto) POC Sodium Sodium 128 L 127 L POC Chloride Chloride 94 L 91 L Carbon Dioxide 20 L Glucose 124 H POC Glucose Calcium 7.9 L POC WB Ioniz Calcium AST 45 H Alkaline Phosphatase 123 H Lactate Dehydrogenase 320 H 390 H Total Protein 5.5 L Albumin 2.8 L 07/13/21 07/12/21 07/12/21 05:26 21:41 21:40 RBC 3.41 L 3.28 L Hgb 9.8 L 9.6 L Hct 29.1 L 27.8 L POC Hct 31 L Plt Count 488 H 520 H Neut % (Auto) Lymph % (Auto) 14.1 L 12.7 L [place] % (Auto) 12.4 H Lymph # (Auto) 1.10 L 1.24 L [place] # (Auto) 0.97 H 1.06 H POC Sodium 127 L Sodium POC Chloride 90 L Chloride Carbon Dioxide Glucose POC Glucose Calcium POC WB Ioniz Calcium 1.10 L AST Alkaline Phosphatase Lactate Dehydrogenase Total Protein Albumin 07/12/21 19:13 RBC Hgb Hct POC Hct 30 L Plt Count Neut % (Auto) Lymph % (Auto) [place] % (Auto) Lymph # (Auto) [place] # (Auto) POC Sodium 128 L Sodium POC Chloride 90 L Chloride Carbon Dioxide Glucose POC Glucose 111 H Calcium POC WB Ioniz Calcium 1.11 L AST Alkaline Phosphatase Lactate Dehydrogenase Total Protein Albumin Meds: Medications Acetaminophen (Acetaminophen 325 Mg Tablet) 650 mg PO Q4-6HP PRN; Protocol PRN Reason: Per Pain Protocol/Fever > 101 Hydrocodone Bitart/Acetaminophen (Hydrocodone/Apap 10/325mg Tablet) 1 - 2 tab PO Q4HP PRN; Protocol PRN Reason: Per Pain Protocol Last Admin: 07/14/21 07:38 Dose: 1 tab Documented by: Aspirin (Aspirin 81 Mg Tab.Chew) 81 mg PO BID [facility] Last Admin: 07/14/21 00:32 Dose: 81 mg Documented by: Bisacodyl (Bisacodyl 10 Mg Supp.Rect) 10 mg WI Q2-3DAYS PRN PRN Reason: Constipation Cefazolin Sodium (Cefazolin 1 Gm Vial) 2 gm IV Q8H [facility] Stop: 07/14/21 09:01 Last Admin: 07/14/21 00:29 Dose: 2 gm Documented by: Docusate Sodium (Docusate Sodium 100 Mg Capsule) 100 mg PO BID [facility] Last Admin: 07/14/21 00:31 Dose: 100 mg Documented by: Hydralazine HCl (Hydralazine 20 Mg/Ml Vial) 10 mg IV Q4-6HP PRN PRN Reason: Hypertension Potassium Chloride 40 meq/ (Dextrose) 520 mls @ 130 mls/hr IV UD PRN PRN Reason: K+ = or < 3.5 Acetaminophen (Ofirmev) 650 mg in 65 mls @ 130 mls/hr IV Q6HP PRN; Protocol PRN Reason: Per Pain Protocol/Fever > 101 Last Infusion: 07/13/21 03:25 Dose: Infused Documented by: Magnesium Sulfate (Magnesium Sulfate) 2 gm in 50 mls @ 50 mls/hr IV UD PRN PRN Reason: MG = or < 1.7 Sodium Chloride (Sodium Chloride 0.9%) 1,000 mls @ 50 mls/hr IV .Q20H [facility] Stop: 07/15/21 10:50 Last Infusion: 07/14/21 05:29 Dose: Infused Documented by: Lactated Ringer's (Lactated Ringers) 1,000 mls @ 125 mls/hr IV .Q8H [facility] Last Admin: 07/14/21 07:39 Dose: 125 mls/hr Documented by: Sodium Chloride (Sodium Chloride 0.9%) 250 mls @ 20 mls/hr IV .[id number] [facility] Stop: 07/14/21 20:29 Iron Carb/Multivit/Mobile/Folic Acid (Multivit,Ther Iron,Ca,Fa & Min 1 Tablet) 1 tab PO DAILY [facility] Last Admin: 07/13/21 08:17 Dose: Not Given Documented by: Ketorolac Tromethamine (Ketorolac 15 Mg/Ml Vial) 15 mg IV Q6HP PRN; Protocol PRN Reason: Pain Stop: 07/15/21 20:32 Last Admin: 07/14/21 00:30 Dose: 15 mg Documented by: Magnesium Hydroxide (Magnesium Hydroxide 30 Ml Oral.Susp) 30 ml PO BIDP PRN PRN Reason: Constipation Melatonin (Melatonin 3 Mg Tablet) 3 mg PO HSP PRN PRN Reason: Insomnia Methocarbamol (Methocarbamol 750 Mg Tablet) 750 mg PO Q6HP PRN PRN Reason: Muscle Spasm Last Admin: 07/14/21 03:47 Dose: 750 mg Documented by: Metoprolol Tartrate (Metoprolol Tartrate 5 Mg/5 Ml Vial) 5 mg IV Q5M PRN PRN Reason: Heart Rate > 140 bpm Morphine Sulfate (Morphine 4 Mg/Ml Vial) 2 - 6 mg IV Q1HP PRN; Protocol PRN Reason: Per Pain Protocol Ondansetron HCl (Ondansetron 4 Mg/2 Ml Vial) 4 mg IV Q4HP PRN; Protocol PRN Reason: Nausea And Vomiting Ondansetron HCl (Ondansetron 4 Mg Odt Tablet) 4 mg SL Q4HP PRN; Protocol PRN Reason: Nausea And Vomiting Polyethylene Glycol (Polyethylene Glycol 3350 17 Gm Packet) 17 gm PO DAILYP PRN PRN Reason: Constipation Senna (Sennosides 1 Tablet) 2 tab PO HS [facility] Last Admin: 07/14/21 00:31 Dose: 2 tab Documented by: Sodium Biphosphate/Sodium Phosphate (Fleets Adult Enema) 1 dose WI Q3-4DAYS PRN PRN Reason: Constipation Sodium Chloride (0.9 % Sodium Chloride 10 Ml Syringe) 10 ml IV Q8 [facility] Last Admin: 07/14/21 05:29 Dose: Not Given Documented by: Throat Lozenges (Benzocaine/Menthol 1 Lozenge) 1 lozenge PO PRN PRN PRN Reason: Sore Throat A/P Narrative A/P Narrative: * Left hip fracture/hardware dislocation postop day 1. 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 * GERD continue PPI * Anxiety disorder continue citalopram Plan * Postop care per orthopedics * Pain management on hydrocodone/hydromorphone * 2 units PRBC transfusion * Pre-existing medical condition management as above * PT OT nutrition support * Discharge planning per case management likely SNF Time Spent With Patient Time: Total time spent is greater than 50% in coordination of care (as documented) at patient's floor/unit and/or counseling patient: Total time spent with greater than 50% in coordination of care (as documented) at patient's floor/unit and/or counseling patient:: Greater than 35 minutes
[2021-07-14] MEDS ORDERED: 0.9 % SODIUM CHLORIDE 250 ML IV SCH (08:00)
--- NOTE | 2021-07-14 08:07 | Operative Note ---
DATE OF OPERATION: 07/13/2021 PREOPERATIVE DIAGNOSIS: Previous left hip intertrochanteric fracture treated with cephalomedullary nailing, which had failed with cutout of the head and varus collapse with arthritic changes in the hip. POSTOPERATIVE DIAGNOSIS: Previous left hip intertrochanteric fracture treated with cephalomedullary nailing, which had failed with cutout of the head and varus collapse with arthritic changes in the hip. PROCEDURE: 1. Hardware removal, left hip. 2. Conversion of previous hip fracture to a total hip arthroplasty. SURGEON: Praful Ribeiro M.D. EARLY CHILDHOOD EDUCATION SPECIALIST SURGEON: Jarred Morrell PA-C. The PA's assistance was required for the safe and efficient completion of the entire case. This providers expertise and technical skill were required throughout the case. The PA assisted with preoperative coordination, intraoperative retraction, limb manipulation, wound closure, dressing application, as well as post-operative documentation and care coordination. ANESTHESIA: Spinal with LMA assist. ESTIMATED BLOOD LOSS: 350 mL COMPLICATIONS: None noted. SPECIMENS REMOVED: None. DRAINS: None. IMPLANTS: IMPLANTS: Take all those out and was going to dictate the implants. A pedicle hip solutions dual-mobility liner, 52 x 45, DePuy Corail size cementless femoral stem, OG coated revision AMT 135 degrees standard collar size 11, DePuy apex hole eliminator PS, DePuy [place] Gription acetabular shell 52 mm, DePuy [place] cancellous bone screw 6.5 x 30 and 6.5 x 25, DePuy Articul/britany femoral head, 12/14 taper +4, BI-Mentum polyethylene liner, 22, 2/45. INDICATIONS: The patient has had a previous intertrochanteric fracture treated with TFNA nail. This happened about three months ago. She has had increasing pain in her hip and radiographs confirmed cut-out of the femoral head and collapse in varus with a failed attempt at fracture fixation. After a long discussion about treatment options, the patient elected to proceed with hardware removal and conversion of the hip fracture to a posterior total hip arthroplasty. The risks and benefits were discussed with the patient in detail including, but not limited to, the risks of anesthesia, problems with the heart or lungs related to anesthesia, infection, compromise or injury to the nerves and blood vessels, deep venous thrombosis, pulmonary embolism, pneumonia, continued pain after surgery, worsening pain or symptoms after surgery, swelling, loss of motion, instability, leg length discrepancy, and need for repeat surgery. DESCRIPTION OF PROCEDURE: The patient was seen in pre-anesthesia waiting room where all questions were answered and the correct side and site were identified and marked. The patient was then brought to the operating room and administered the anesthetic and given pre-operative antibiotics. A timeout was then called. The patient was placed in the lateral decubitus position with all prominences well padded using the [place] frame and the extremity was prepped and draped in the usual sterile fashion. Anesthesia gave the patient 1 gram of Transexamic Acid via an intravenous route. A standard posterior approach was made. We dissected through the skin and subcutaneous tissue to the deep fascia. The deep fascia was split in line with the incision and a Charnley retractor was placed. We exposed, tagged, and incised the short external rotators and piriformis tendon and retracted them posteriorly to help protect the sciatic nerve which was palpated throughout the case. We then performed a T-capsulotomy and tagged the capsule edges. The hip was dislocated and the nail was removed, first the set screw followed by the cephalic screw, then the distal screw and then the nail was removed. We then took the head out to visualize the acetabulum. We next turned our attention to the acetabulum. Retractors were placed for optimal visualization. A complete labral excision was performed. The capsule was preserved for later closure. We began reaming using anatomic landmarks with the Depuy [place] acetabular system. We medialized the cup and reamed up to provide good fill and coverage of the trial. When the trial was stable and appropriately positioned with approximately 20 degrees of anteversion and 45 degrees of abduction, we impacted the Depuy [place] cup and placed two cancellous screws in the posterior-superior quadrant. Osteophytes were removed from around the shell. We placed the trial liner and turned our attention to the femur. We placed retractors for visualization, internally rotated the femur, and established intramedullary access. We broached using the Depuy [place] stem to a stable platform medial, lateral, and rotationally with the appropriate version. We then performed a calcar reaming off the broach. Trials were then placed and optimized for leg length and stability. We used the leg length and offset guide to confirm our trials. Best stability, length, and offset characteristics were obtained with these sizes. We removed all the trials and impacted the dual-mobility liner in a standard fashion after thorough irrigation. We then impacted the femoral stem to its broached location and placed the head. Final reduction was performed. Again, good stability, leg length, and offset characteristics were noted. We irrigated with three liters of antibiotic saline. We closed the capsule with #2 FiberWire. We closed the fascia with a combination of #1 Strata-fix and #0 Vicryl. We closed the subcutaneous tissue and skin in layers out to bety on the skin. A sterile pressure dressing and abduction wedge was applied. All needle and sponge counts were correct. The patient was transferred to the recovery room in stable condition. RAMON:wagner Job ID: [id number] Doc ID: [id number] Clemencia Ribeiro MD
[2021-07-14] MEDS: MULTIVIT,THER IRON,CA,FA & MIN 1 TABLET PO SCH (08:15)
[2021-07-14] MEDS: morphine 4 MG/ML VIAL IV PRN ×3 (08:55→22:54)
[2021-07-14] MEDS ORDERED: FUROSEMIDE 20 MG/2 ML VIAL IV ONE (12:53)
--- NOTE | 2021-07-14 12:56 | Discharge Summary ---
Discharge Provider Provider Patient information: Note initiated : 07/14/21 at 12:55 pm Service Date, if different from initiated Date: [] Patient: Paula Hollis 66 y/o F admitted on 07/13/21 for hip. Chief Complaint: [] Date of admission: 07/13/21 08:24 Discharge date: 07/15/21 Primary care physician: Diane Weldon Consults: 07/12/21 Consult to Physician [CONS] Stat Comment: Consulting Provider: Scooter Mcgarry Reason For Exam: Physician to Consult Consult to Physician [CONS] Stat Comment: Consulting Provider: Praful Ribeiro Reason For Exam: Physician to Consult 07/14/21 12:29 Consult to Physician [CONS] Routine Comment: snf referral Consulting Provider: [facility] Reason For Exam: Physician to Consult Discharge Meds Discharge Medications Home Medications citalopram 40 mg tablet 40 mg PO QDAY tab 12/24/15 [History Confirmed 07/12/21 Last Taken 04/17/21 00:00] hydroxychloroquine 200 mg tablet 200 mg PO QDAY tab 12/24/15 [History Confirmed 07/12/21 Last Taken 04/17/21 00:00] lisinopril 20 mg-hydrochlorothiazide 25 mg tablet 1 tab PO QDAY 12/24/15 [History Confirmed 07/12/21 Last Taken 04/17/21 00:00] pantoprazole 20 mg tablet,delayed release 20 mg PO QDAY 12/24/15 [History Confirmed 07/12/21 Last Taken 04/17/21 00:00] promethazine 25 mg tablet 25 mg PO TIDP PRN tab 12/24/15 [History Confirmed 07/12/21 Last Taken 04/17/21 00:00] acetaminophen 500 mg tablet 1,000 mg PO Q6H PRN #60 tab 05/02/21 [Rx Confirmed 07/13/21 Last Taken 1 Week Ago ~07/06/21] hydrocodone 7.5 mg-acetaminophen 325 mg tablet 1 tab PO Q4H PRN #60 tab 05/11/21 [Rx Confirmed 07/13/21 Last Taken Unknown] furosemide 20 mg tablet (Lasix) 20 mg PO QAM PRN #15 tab 06/16/21 [Rx Confirmed 07/13/21 Last Taken Unknown] cephalexin 500 mg capsule 500 mg PO QID #20 cap 06/18/21 [Rx Confirmed 07/13/21 Last Taken Unknown] methocarbamol 750 mg tablet 750 mg PO TID #14 tab 06/18/21 [Rx Confirmed 07/13/21 Last Taken Unknown] cyclobenzaprine 10 mg tablet 10 mg PO QHS 07/12/21 [History Confirmed 07/12/21 Last Taken Unknown] levothyroxine 75 mcg capsule 75 mcg PO QDAY 07/12/21 [History Confirmed 07/12/21 Last Taken Unknown] potassium chloride 10 mEq capsule,extended release 10 meq PO BID 07/12/21 [History Confirmed 07/12/21 Last Taken Unknown] aspirin 81 mg tablet,delayed release (Aspirin Low Dose) 81 mg PO BID #60 tab 07/13/21 [Rx Last Taken Unknown] hydrocodone 10 mg-acetaminophen 325 mg tablet 1 - 2 tab PO Q4H PRN #60 tab 07/13/21 [Rx Last Taken Unknown] COURSE Hospital Course Hospital course: Ms. Hollis is a 66 year old F with a complex medical history of rheumatoid arthritis/alopecia/hypertension/hypothyroidism/DJD/anxiety disorder who presents to the ER after experiencing worsening pain and difficulty weightbearing over the last few days. Patient apparently had a fall in April and underwent a femoral neck fracture repair. She was recovering well until she had a fall a few days ago following which she continues to experience difficulty ambulation/increasing pain in the recent she presents to the ER. Initial work-up was consistent with screw migration of the prosthesis on hip candy ging along with a fracture. Orthopedic was consulted and requested admission for operative intervention. Hospitalist service was consulted to facilitate hospitalization and comanagement of multiple medical issues At the time of evaluation patient is alert and oriented. She was able to answer most the questions and endorse history as above. She denies lightheadedness dizziness, fever, chills, shortness breath, hemoptysis, diarrhea, abdominal pain or chest pain. 07/13-patient in significant pain secondary to fracture. Continuing IV opioid/ketamine/lorazepam for pain relief. Currently n.p.o. until surgery. Will review postop. No overnight fever chills. Stable labs and hemodynamics. Sodium 127, no concerns expressed by nursing staff 07/14-patient postop day 1. Postop pain well controlled. Hemoglobin down to 7. 2 units blood transfusion today. Continue postop care per orthopedic/physical therapy. Sodium 128 likely secondary to pain mediated ADH response. Continue nutrition support, case management coordinate SNF transfer 07/25 No overnight event or new complaints. Stable for discharge to [facility] facility. 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 * GERD continue PPI * Anxiety disorder continue citalopram Discharge diagnosis: Left hip fracture acute blood loss anemia Secondary discharge diagnosis: Hyponatremia hypothyroid Lupus hypertension GERD anxiety Time Spent with Patient Time attestation: Total time spent providing and/or coordinating discharge services: Time spent: Greater than 30 minutes EXAM Constitutional Vitals: Temp Pulse Resp BP Pulse Ox 98.7 F 92 H 12 117/53 98 07/14/21 08:00 07/14/21 08:00 07/14/21 08:00 07/14/21 08:00 07/14/21 08:00 Discharge Data Data Completed and Pending Labs on day of discharge: Labs from last 24 hours 07/14/21 07/14/21 05:52 05:52 WBC 9.4 RBC 2.42 L Hgb 7.0 L* Hct 21.7 L MCV 89.7 MCH 28.9 MCHC 32.3 RDW 13.7 Plt Count 323 MPV 9.3 Neut % (Auto) 81.4 H Lymph % (Auto) 9.3 L [place] % (Auto) 9.1 Eos % (Auto) 0 Baso % (Auto) 0.2 Lymph # (Auto) 0.87 L [place] # (Auto) 0.85 Eos # (Auto) 0 Baso # (Auto) 0.02 Absolute Neutrophils 7.61 Sodium 128 L Potassium 4.1 Chloride 94 L Carbon Dioxide 20 L Anion Gap 14.0 BUN 12 Creatinine 0.8 GFR Calculation 78 Glucose 124 H Uric Acid 4.5 Calcium 7.9 L Phosphorus 3.6 Magnesium 2.0 Total Bilirubin 0.4 Direct Bilirubin < 0.2 GGT 11 AST 45 H ALT 19 Alkaline Phosphatase 84 Lactate Dehydrogenase 320 H Total Protein 5.5 L Albumin 2.8 L Globulin 2.7 Albumin/Globulin Ratio 1.0 Triglycerides 72 Discharge Plan Patient/Caregiver Discharge Instructions Activity: ambulate only with your walker and as per physical therapy Diet: Regular Diet Prescriptions: New hydrocodone-acetaminophen 10-325 mg Tablet 1 - 2 tab PO Q4H PRN (Reason: Pain) Qty: 60 0RF aspirin [Aspirin Low Dose] 81 mg Tablet,Delayed Release (Dr/Ec) 81 mg PO BID Qty: 60 0RF Continued hydrocodone-acetaminophen 7.5-325 mg tablet 1 tab PO Q4H PRN (Reason: pain) Qty: 60 0RF citalopram 40 mg tablet 40 mg PO QDAY 0RF pantoprazole 20 mg tablet,delayed release (DR/EC) 20 mg PO QDAY 0RF promethazine 25 mg tablet 25 mg PO TIDP PRN (Reason: Nausea) 0RF lisinopril-hydrochlorothiazide 20-25 mg tablet 1 tab PO QDAY 0RF hydroxychloroquine 200 mg tablet 200 mg PO QDAY 0RF furosemide [Lasix] 20 mg tablet 20 mg PO QAM PRN (Reason: edema) Qty: 15 0RF acetaminophen 500 mg tablet 1,000 mg PO Q6H PRN (Reason: pain) Qty: 60 0RF methocarbamol 750 mg tablet 750 mg PO TID Qty: 14 0RF cephalexin 500 mg capsule 500 mg PO QID Qty: 20 0RF cyclobenzaprine 10 mg tablet 10 mg PO QHS 0RF potassium chloride 10 mEq Capsule, Extended Release 10 meq PO BID 0RF levothyroxine 75 mcg Capsule 75 mcg PO QDAY 0RF Discontinued aspirin 81 mg tablet,chewable 81 mg PO BID Qty: 60 0RF Other Ambulatory Orders: Physical Therapy DC - ZAIN[facility] (Routine) Location: None Selected Ordered By: Praful Ribeiro Toilet Riser Discharge Order (ONCE) Location: None Selected Ordered By: Praful Ribeiro Walker (ONCE) Location: None Selected Ordered By: Praful Ribeiro Follow Up Plan Follow up with: Diane Weldon ARNP [Primary Care Provider] - Praful Ribeiro MD [Physician] - Patient Disposition: Xfer SNF Rehab Potential: Good I certify that the patient requires SNF services: Yes Overall status at discharge: patient is progressing back to baseline Discharge Orders: Discharge Order (Routine); Ordered 07/13/21 Ordered By: Praful Ribeiro Discharge Comment: cc: left hip fracture s/p zainab
[2021-07-14] MEDS: 0.9 % SODIUM CHLORIDE 1,000 ML IV SCH (13:43)
[2021-07-14] MEDS ORDERED: KETOROLAC 30 MG/ML VIAL ONE (20:15)
[2021-07-15] MEDS: morphine 4 MG/ML VIAL IV PRN ×4 (01:20→11:23)
[2021-07-15] MEDS: METHOCARBAMOL 750 MG TABLET PO PRN ×2 (01:24→08:18)
[2021-07-15] MEDS: HYDROcodone/APAP 10/325MG TABLET PO PRN ×2 (02:54→08:11)
[2021-07-15] MEDS: LACTATED RINGERS 1,000 ML IV SCH ×2 (05:06→12:24)
[2021-07-15] MEDS: 0.9 % SODIUM CHLORIDE 10 ML SYRINGE IV SCH (05:22)
--- NOTE | 2021-07-15 06:37 | Orthopedic Progress Note ---
SUBJECTIVE Subjective Patient information: Note initiated : 07/15/21 at 6:31 am Service Date, if different from initiated Date: [] Patient: Paula Hollis 66 y/o F admitted on 07/13/21 for hip. Chief Complaint: [s/p left revision total hip arthroplasty ] Pertinent ROS: 10 point review performed and is negative except where mentioned Constitutional Vitals: Vital Signs Temp Pulse Resp BP Pulse Ox 97.7 F 97 H 16 105/64 95 07/15/21 03:56 07/15/21 03:56 07/15/21 03:56 07/15/21 03:56 07/15/21 03:56 Period Temp Pulse Resp BP Sys/Hurley Pulse Ox Last 24 Hr 97.6 F-98.9 F 88-103 12- 105-118/53-67 94-100 Intake and Output 07/14/21 07/15/21 07/15/21 21:59 05:59 13:59 Intake Total 1138 420 Output Total 500 500 Balance 638 -80 Weight 187 lb 3 oz Intake & Output: Intake & Output 07/14/21 07/15/21 07/15/21 21:59 05:59 13:59 Intake Total 1138 420 Output Total 500 500 Balance 638 -80 Weight 187 lb 3 oz Intake: IV 813 Lactated Ringers 1,000 ml @ 125 813 mls/hr IV .Q8H [facility] Rx#: [id number] Oral 0 420 Blood Product 325 Output: Void Amount 500 500 Other: Meal Dinner Percent of Meal Consumed Refused Urine Appearance Clear Clear Urine Color Straw Bright Yellow Urine Odor Normal OBJ DATA Labs CBC & Chem 7: 07/14/21 05:52 07/14/21 05:52 Labs: Abnormal Lab Results 07/14/21 07/14/21 07/13/21 05:52 05:52 05:26 RBC 2.42 L Hgb 7.0 L* Hct 21.7 L POC Hct Plt Count Neut % (Auto) 81.4 H Lymph % (Auto) 9.3 L [place] % (Auto) Lymph # (Auto) 0.87 L [place] # (Auto) POC Sodium Sodium 128 L 127 L POC Chloride Chloride 94 L 91 L Carbon Dioxide 20 L Glucose 124 H POC Glucose Calcium 7.9 L POC WB Ioniz Calcium AST 45 H Alkaline Phosphatase 123 H Lactate Dehydrogenase 320 H 390 H Total Protein 5.5 L Albumin 2.8 L 07/13/21 07/12/21 07/12/21 05:26 21:41 21:40 RBC 3.41 L 3.28 L Hgb 9.8 L 9.6 L Hct 29.1 L 27.8 L POC Hct 31 L Plt Count 488 H 520 H Neut % (Auto) Lymph % (Auto) 14.1 L 12.7 L [place] % (Auto) 12.4 H Lymph # (Auto) 1.10 L 1.24 L [place] # (Auto) 0.97 H 1.06 H POC Sodium 127 L Sodium POC Chloride 90 L Chloride Carbon Dioxide Glucose POC Glucose Calcium POC WB Ioniz Calcium 1.10 L AST Alkaline Phosphatase Lactate Dehydrogenase Total Protein Albumin 07/12/21 19:13 RBC Hgb Hct POC Hct 30 L Plt Count Neut % (Auto) Lymph % (Auto) [place] % (Auto) Lymph # (Auto) [place] # (Auto) POC Sodium 128 L Sodium POC Chloride 90 L Chloride Carbon Dioxide Glucose POC Glucose 111 H Calcium POC WB Ioniz Calcium 1.11 L AST Alkaline Phosphatase Lactate Dehydrogenase Total Protein Albumin Meds: Medications Acetaminophen (Acetaminophen 325 Mg Tablet) 650 mg PO Q4-6HP PRN; Protocol PRN Reason: Per Pain Protocol/Fever > 101 Hydrocodone Bitart/Acetaminophen (Hydrocodone/Apap 10/325mg Tablet) 1 - 2 tab PO Q4HP PRN; Protocol PRN Reason: Per Pain Protocol Last Admin: 07/15/21 02:54 Dose: 1 tab Documented by: Aspirin (Aspirin 81 Mg Tab.Chew) 81 mg PO BID [facility] Last Admin: 07/14/21 20:23 Dose: 81 mg Documented by: Bisacodyl (Bisacodyl 10 Mg Supp.Rect) 10 mg VA Q2-3DAYS PRN PRN Reason: Constipation Docusate Sodium (Docusate Sodium 100 Mg Capsule) 100 mg PO BID [facility] Last Admin: 07/14/21 20:23 Dose: 100 mg Documented by: Hydralazine HCl (Hydralazine 20 Mg/Ml Vial) 10 mg IV Q4-6HP PRN PRN Reason: Hypertension Potassium Chloride 40 meq/ (Dextrose) 520 mls @ 130 mls/hr IV UD PRN PRN Reason: K+ = or < 3.5 Acetaminophen (Ofirmev) 650 mg in 65 mls @ 130 mls/hr IV Q6HP PRN; Protocol PRN Reason: Per Pain Protocol/Fever > 101 Last Infusion: 07/13/21 03:25 Dose: Infused Documented by: Magnesium Sulfate (Magnesium Sulfate) 2 gm in 50 mls @ 50 mls/hr IV UD PRN PRN Reason: MG = or < 1.7 Sodium Chloride (Sodium Chloride 0.9%) 1,000 mls @ 50 mls/hr IV .Q20H [facility] Stop: 07/15/21 10:50 Last Admin: 07/14/21 13:43 Dose: Not Given Documented by: Lactated Ringer's (Lactated Ringers) 1,000 mls @ 125 mls/hr IV .Q8H [facility] Last Admin: 07/15/21 05:06 Dose: Not Given Documented by: Iron Carb/Multivit/Shirt Trimmer/Folic Acid (Multivit,Ther Iron,Ca,Fa & Min 1 Tablet) 1 tab PO DAILY [facility] Last Admin: 07/14/21 08:15 Dose: 1 tab Documented by: Ketorolac Tromethamine (Ketorolac 15 Mg/Ml Vial) 15 mg IV Q6HP PRN; Protocol PRN Reason: Pain Stop: 07/15/21 20:32 Last Admin: 07/14/21 20:12 Dose: 15 mg Documented by: Magnesium Hydroxide (Magnesium Hydroxide 30 Ml Oral.Susp) 30 ml PO BIDP PRN PRN Reason: Constipation Melatonin (Melatonin 3 Mg Tablet) 3 mg PO HSP PRN PRN Reason: Insomnia Methocarbamol (Methocarbamol 750 Mg Tablet) 750 mg PO Q6HP PRN PRN Reason: Muscle Spasm Last Admin: 07/15/21 01:24 Dose: 750 mg Documented by: Metoprolol Tartrate (Metoprolol Tartrate 5 Mg/5 Ml Vial) 5 mg IV Q5M PRN PRN Reason: Heart Rate > 140 bpm Morphine Sulfate (Morphine 4 Mg/Ml Vial) 2 - 6 mg IV Q1HP PRN; Protocol PRN Reason: Per Pain Protocol Last Admin: 07/15/21 05:22 Dose: 4 mg Documented by: Ondansetron HCl (Ondansetron 4 Mg/2 Ml Vial) 4 mg IV Q4HP PRN; Protocol PRN Reason: Nausea And Vomiting Ondansetron HCl (Ondansetron 4 Mg Odt Tablet) 4 mg SL Q4HP PRN; Protocol PRN Reason: Nausea And Vomiting Polyethylene Glycol (Polyethylene Glycol 3350 17 Gm Packet) 17 gm PO DAILYP PRN PRN Reason: Constipation Senna (Sennosides 1 Tablet) 2 tab PO HS [facility] Last Admin: 07/14/21 20:23 Dose: 2 tab Documented by: Sodium Biphosphate/Sodium Phosphate (Fleets Adult Enema) 1 dose VA Q3-4DAYS PRN PRN Reason: Constipation Sodium Chloride (0.9 % Sodium Chloride 10 Ml Syringe) 10 ml IV Q8 [facility] Last Admin: 07/15/21 05:22 Dose: 10 ml Documented by: Throat Lozenges (Benzocaine/Menthol 1 Lozenge) 1 lozenge PO PRN PRN PRN Reason: Sore Throat A/P Narrative A/P Narrative: Patient seen and examined this am. resting comfortably but arousable, cooperative, answers questions appropriately. Has expected pos-op pain but seems managed on current regimen. Dressing at E clean dry and intact. hip wedge in place. Both lower extremities are warm, well perfused and neuro intact. endorses occasional up from bed and ambulation to bathroom w/ nursing assistance. continue PT, WB as tolerated, wedge in place for sleep. Plan is for expected discharge to rehab facility in 1-2 days and follow up at [facility] in 10-14 days. Time Spent With Patient Time: Total time spent is greater than 50% in coordination of care (as documented) at patient's floor/unit and/or counseling patient:
[2021-07-15 08:40] LABS: Basophils # (Auto) 0.06 K/mcL (0.00-0.30); Eosinophils # (Auto) 0.26 K/mcL (0.00-0.70); Eosinophils % (Auto) 4.2 % (0.0-7.0); Hematocrit 28.1 % (34.1-44.9); Lymphocytes # (Auto) 1.25 K/mcL (1.50-4.80); Mean Cell Volume 88.4 fL (80.0-100.0); Mean Platelet Volume 8.8 fL (7.4-10.4); Monocytes # (Auto) 0.78 K/mcL (0.10-0.90); Monocytes % (Auto) 12.5 % (1.0-12.0); Neutrophils % (Auto) 62.3 % (38.0-78.0); Platelet Count 342 K/mcL (140-440); RBC 3.18 M/mcL (3.59-5.38); Red Cell Distribution Width 14.7 % (11.5-14.5); WBC 6.3 K/mcL (4.5-11.0)
[2021-07-15 09:27] LABS: ALT/SGPT 15 U/L (<40); AST/SGOT 48 U/L (<32); Albumin 2.9 gm/dL (3.2-5.2); Albumin/Globulin Ratio 1.1 (1.0-2.3); Alkaline Phosphatase 74 U/L (39-117); Bilirubin,Direct < 0.2 mg/dL (0-0.3); Bilirubin,Total 0.5 mg/dL (0.1-1.0); Blood Urea Nitrogen 16 mg/dL (8-23); Calcium 7.9 mg/dL (8.6-10.4); Carbon Dioxide 24 mmol/L (22-30); Chloride 97 mmol/L (96-108); Globulin 2.6 gm/dL (2.2-3.7); Glomerular Filtration Rate 78; Glucose 116 mg/dL (70-105); Lactate Dehydrogenase 340 U/L (135-225); Phosphorous 2.7 mg/dL (2.5-4.5); Triglycerides 122 mg/dL (<150); Uric Acid 5.3 mg/dL (2.5-8.0)
[2021-07-15] MEDS: MULTIVIT,THER IRON,CA,FA & MIN 1 TABLET PO SCH (09:57)
[2021-07-15] MEDS: ASPIRIN 81 MG TAB.CHEW PO SCH (09:57)
[2021-07-15] MEDS: DOCUSATE SODIUM 100 MG CAPSULE PO SCH (09:57)
== END 2021-07-15 11:35 | DRG 470 ==
LOC: ED 18:47 → MEDSUR 18:47
PROVIDERS: ADMIT Internal Medicine; ATTEND Internal Medicine

== ENCOUNTER 2021-07-18 22:37 | Inpatient (IN) ==
[2021-07-18] MEDS ORDERED: DIAZEPAM 10 MG/2 ML SYRINGE IV ONE (22:59)
--- NOTE | 2021-07-18 23:05 | Emergency Department Note ---
Lower Extremity Injury HPI General Chief Complaint: Extremity Injury, Lower Stated Complaint: Hip pain Time Seen by Provider: 07/18/21 22:41 Source: EMS Mode of arrival: EMS Limitations: no limitations History of Present Illness HPI Narrative: Narrative:66-year-old female history of SLE on Plaquenil, left hip fracture presenting to the ED with intractable postop pain. Had a initial hip fracture several months ago and repaired and then subsequently had a fall approximately 6 days ago with loosening of the hardware was admitted and orthopedics then took out her previous hardware and did a total hip arthroplasty. Discharged on the 07/15 to rehab facility. Patient says since her discharge she has not gotten out of bed one time. Her pain has been gradually worsening till tonight when it is severe intractable. Has some mild generalized swelling of the leg with no acute worsening no calf pain denies any fever, chills, chest pain, shortness of breath no distal numbness tingling. Localizes pain to her left hip worse with range of motion. No developing redness or signs or symptoms around her incision site which still have a well-appearing dressing. Says she is only taking Tylenol. She describes the pain more as a severe spasm radiating down from her hip. Denies any new fall or trauma Related Data Home Medications Medication Instructions Recorded Confirmed citalopram 40 mg tablet 40 mg PO QDAY tab 12/24/15 07/19/21 hydroxychloroquine 200 mg tablet 200 mg PO QDAY tab 12/24/15 07/19/21 lisinopril 20 1 tab PO QDAY 12/24/15 07/19/21 mg-hydrochlorothiazide 25 mg tablet pantoprazole 20 mg tablet,delayed 20 mg PO QDAY 12/24/15 07/19/21 release promethazine 25 mg tablet 25 mg PO TIDP PRN tab 12/24/15 07/19/21 cyclobenzaprine 10 mg tablet 10 mg PO QHS 07/12/21 07/12/21 levothyroxine 75 mcg capsule 75 mcg PO QDAY 07/12/21 07/19/21 potassium chloride 10 mEq 10 meq PO BID 07/12/21 07/19/21 capsule,extended release furosemide 20 mg tablet (Lasix) 20 mg PO QAMP PRN 07/19/21 07/19/21 magnesium hydroxide 400 mg/5 mL 30 ml PO PRN 07/19/21 oral suspension (Milk of Magnesia) methocarbamol 500 mg tablet 1,000 mg PO QID 07/19/21 07/19/21 methocarbamol 750 mg tablet 750 mg PO QIDP PRN 07/19/21 07/19/21 Previous Rx's Medication Instructions Recorded acetaminophen 500 mg tablet 1,000 mg PO Q6H PRN #60 tab 05/02/21 cephalexin 500 mg capsule 500 mg PO QID #20 cap 06/18/21 aspirin 81 mg tablet,delayed 81 mg PO BID #60 tab 07/13/21 release (Aspirin Low Dose) hydrocodone 10 mg-acetaminophen 1 - 2 tab PO Q4H PRN #60 tab 07/13/21 325 mg tablet Allergies Allergy/AdvReac Type Severity Reaction Status Date / Time codeine AdvReac Intermediate Vomiting Verified 07/18/21 22:48 Review of Systems ROS ROS Narrative: Narrative: At least 10 systems reviewed and otherwise acutely negative except as in the HPI PFSH Narrative Patient History Narrative: Narrative: Medical/Surgical/Family History All Active Problems (Updated 07/19/21 @ 03:50 by Rom Wells DO) Cellulitis (Acute) Failed hardware (Acute) Hip fracture (Acute) Dislocation, hip closed (Acute) Acetabular fracture (Acute) Edema of both lower legs (Acute) Dental abscess (Acute) Fracture of femoral neck, left (Acute) Arthralgia (Chronic) Alopecia (Chronic) Antinuclear factor positive (Chronic) Yeast infection of the vagina (Chronic) UTI (urinary tract infection) (Chronic) Gastroparesis (Chronic) White coat hypertension (Chronic) Systemic lupus erythematosus (Chronic) Rheumatoid arthritis (Chronic) Osteoporosis (Chronic) GERD (gastroesophageal reflux disease) (Chronic) Hypothyroidism (Chronic) Electrolyte imbalance (Chronic) Vitamin D deficiency (Chronic) Anxiety (Chronic) Depression (Chronic) Rash (Chronic) Leg weakness, bilateral (Chronic) Leg pain, bilateral (Chronic) Medical History Alopecia Antinuclear factor positive Anxiety Arthralgia Closed fracture of left hip requiring operative repair Depression Edema of both lower legs Electrolyte imbalance Gastroparesis GERD (gastroesophageal reflux disease) Hypothyroidism Leg pain, bilateral Leg weakness, bilateral Osteoporosis Rash Rheumatoid arthritis Systemic lupus erythematosus UTI (urinary tract infection) Vitamin D deficiency White coat hypertension Yeast infection of the vagina Surgical History History of section 1975, 1981, 1982 & 1988 Family History Mother Muscular wasting and disuse atrophy Father Muscular wasting and disuse atrophy Unknown Diabetes mellitus Alcoholism Social History Smoking Status: Never smoker Alcohol Intake Frequency: holiday/special occasion only Substance Use: does not use Exam Narrative Narrative: Narrative: Constitutional: normally developed, distressed Head: Normocephalic, atraumatic, Eyes: No Icterus, ENT: Moist mucus membranes, Neck: Supple, Cardiac: Tachycardic heart sounds, palpable dorsalis pedis pulses with brisk capillary refill, 1+ edema to left lower extremity Pulmonary: Normal respiratory effort. Breath sounds clear, no wheeze, rhonchi, rales, Gastrointestinal: Abdomen soft, non-distended, non-tender, Musculoskeletal: Exam of left lower extremity shows well-appearing surgical dressing over left lateral hip. She has some mild generalized swelling to that left lower extremity I suspect since her surgery. Distally she has sensation intact throughout to light touch. She has good pulses and brisk capillary refill in digits. Able to range her toes ankle knee, pain with attempted range of motion at the hip Leg appears slightly shorter than the contralateral side. Skin: warm, dry Neuro: Alert. General Limitations: no limitations Course Vital Signs Vital signs: Vital Signs Temperature 37.1 C 07/18/21 22:42 Pulse Rate 111 H 07/18/21 22:42 Respiratory Rate 20 07/18/21 22:42 Blood Pressure 156/66 07/18/21 22:42 Pulse Oximetry (%) 96 07/18/21 22:42 Temperature 36.9 C 07/19/21 03:01 Pulse Rate 107 H 07/19/21 03:01 Respiratory Rate 18 07/19/21 03:01 Blood Pressure 134/72 07/19/21 03:01 Pulse Oximetry (%) 97 07/19/21 03:01 [facility] MDM Narrative Medical decision making narrative: Patient developing intractable left hip pain after recent arthroplasty. Leg does appear shorter does have significant pain with any attempted range of motion. Does have pulses brisk capillary refill and sensation intact distally, neurovascularly intact. Will obtain duplex ultrasound x-ray of the hip and is given pain control X-ray per my interpretation does show dislocation of her prosthetic head as well as dislocation of the acetabular component with what appears to be a fracture around the acetabulum and the acetabular component is displaced superior laterally 0030: Spoke with on-call orthopedic Dr. Menard, who also reviewed the films. Did request a CT of the pelvis for better imaging, hospitalist admission. Did discuss if she should be placed in any type of splint or traction, Dr. Menard recommends we simply leave it as is continue with pain control monitor neurovascular status CT did result with the known dislocation with surrounding acetabular fracture, does show a seroma or hematoma Hospitalist is capped, orthopedics Dr. Menard has agreed to accept admission. Patient made n.p.o. / given some maintenance fluids, on reevaluation her pain is beginning to improve and still is neurovascular intact. admitted at this time. did order some basic preoperative studies Lab Data Result diagrams: 07/19/21 01:15 07/19/21 01:14 Labs: Lab Results 07/19/21 07/19/21 07/19/21 Range/Units 01:14 01:14 01:15 WBC 9.3 (4.5-11.0) K/mcL RBC 3.60 (3.59-5.38) M/mcL Hgb 10.5 L (11.2-15.7) g/dL Hct 31.3 L (34.1-44.9) % MCV 86.9 (80.0-100.0) fL MCH 29.2 (26.0-34.0) pg MCHC 33.5 (31.0-36.0) g/dL RDW 14.3 (11.5-14.5) % Plt Count 523 H (140-440) K/mcL MPV 8.5 (7.4-10.4) fL Neut % (Auto) 75.6 (38.0-78.0) % Lymph % (Auto) 14.7 L (15.5-49.0) % [place] % (Auto) 8.6 (1.0-12.0) % Eos % (Auto) 0.8 (0.0-7.0) % Baso % (Auto) 0.3 (0.0-2.0) % Lymph # (Auto) 1.36 L (1.50-4.80) K/mcL [place] # (Auto) 0.80 (0.10-0.90) K/mcL Eos # (Auto) 0.07 (0.00-0.70) K/mcL Baso # (Auto) 0.03 (0.00-0.30) K/mcL Absolute Neutrophils 6.99 (1.80-8.00) K/mcL PT 12.9 (11.9-14.5) sec INR 0.9 (0.9-1.1) Sodium 131 L (133-145) mmol/L Potassium 4.4 (3.3-5.1) mmol/L Chloride 94 L (96-108) mmol/L Carbon Dioxide 23 (22-30) mmol/L Anion Gap 14.0 (8.0-16.0) BUN 11 (8-23) mg/dL Creatinine 0.7 (0.6-1.1) mg/dL GFR Calculation 91 Glucose 107 H (70-105) mg/dL Calcium 8.8 (8.6-10.4) mg/dL ED POC Tests ED POC Tests: TIFFANIE - SARS Antigen Negative Discharge Plan Patient/Caregiver Discharge Instructions Pt seen by [employer] SALESPERSON/PA only: No Clinical Impression: Dislocation, hip closed, Acetabular fracture Patient Disposition: Xfer As Inpt ([facility]) Condition: Fair Discharge Date/Time: 07/19/21 02:39
[2021-07-18] MEDS ORDERED: HYDROmorphone 1 MG/ML SYRINGE IV ONE (23:27)
[2021-07-19] MEDS ORDERED: HYDROmorphone 1 MG/ML SYRINGE IV ONE ×2 (00:44→06:33)
[2021-07-19] MEDS ORDERED: METHOCARBAMOL 1,000 MG/10 ML VIAL IV ONE (01:13)
[2021-07-19] MEDS ORDERED: ONDANSETRON 4 MG/2 ML VIAL IV PRN (01:14)
[2021-07-19] MEDS ORDERED: LACTATED RINGERS 1,000 ML IV SCH (01:15)
[2021-07-19 01:48] LABS: Basophils # (Auto) 0.03 K/mcL (0.00-0.30); Basophils % (Auto) 0.3 % (0.0-2.0); Eosinophils # (Auto) 0.07 K/mcL (0.00-0.70); Eosinophils % (Auto) 0.8 % (0.0-7.0); Hematocrit 31.3 % (34.1-44.9); Hemoglobin 10.5 g/dL (11.2-15.7); Lymphocytes # (Auto) 1.36 K/mcL (1.50-4.80); Lymphocytes % (Auto) 14.7 % (15.5-49.0); Mean Cell Volume 86.9 fL (80.0-100.0); Mean Corpuscular HGB Conc 33.5 g/dL (31.0-36.0); Mean Platelet Volume 8.5 fL (7.4-10.4); Monocytes % (Auto) 8.6 % (1.0-12.0); Neutrophils % (Auto) 75.6 % (38.0-78.0); Platelet Count 523 K/mcL (140-440); Red Cell Distribution Width 14.3 % (11.5-14.5); WBC 9.3 K/mcL (4.5-11.0)
[2021-07-19 01:54] LABS: INR 0.9 (0.9-1.1); Prothrombin Time 12.9 sec (11.9-14.5)
[2021-07-19 02:06] LABS: Blood Urea Nitrogen 11 mg/dL (8-23); Calcium 8.8 mg/dL (8.6-10.4); Carbon Dioxide 23 mmol/L (22-30); Chloride 94 mmol/L (96-108); Glomerular Filtration Rate 91; Glucose 107 mg/dL (70-105)
[2021-07-19] MEDS: HYDROmorphone 0.5 MG/0.5 ML SYRINGE IV PRN ×2 (02:57→05:06)
[2021-07-19] MEDS ORDERED: HYDROmorphone 1 MG/ML SYRINGE IV PRN (06:02)
[2021-07-19] MEDS ORDERED: FUROSEMIDE 20 MG TABLET PO PRN (06:09)
[2021-07-19] MEDS: ACETAMINOPHEN 1,000 MG/100 ML BAG IV SCH ×3 (06:14→21:35)
[2021-07-19] MEDS: DEXTROSE 5%-1/2NS 1,000 ML IV SCH ×2 (06:48→18:53)
[2021-07-19] MEDS: HYDROmorphone 1 MG/ML SYRINGE IV SCH ×8 (08:12→15:16)
--- NOTE | 2021-07-19 08:25 | History and Physical Report ---
DATE OF ADMISSION: 07/19/2021 CHIEF COMPLAINT: Left total hip arthroplasty dislocation with disclocated acetabular cup and associated acetaular fracture HISTORY OF PRESENT ILLNESS: The patient is a 66-year-old lady who now about 6 days ago had a cephalomedullary nail converted to a total hip arthroplasty for a failed construct for femoral neck fracture. She was discharged to a rehabilitation facility and presented to the ER early this morning for left hip pain. At that time she was found to have dislocated her dual mobility cup with the acetabulum itself dislodged from the acetabulum, and appears to have a fracture as well. She has been admitted. This morning, she complains of severe left hip pain. This has been emotional for her as well. She denies any numbness or tingling to the extremity. She does not endorse any falls at the rehabilitation facility, but just onset of pain. PAST MEDICAL HISTORY: Significant for hip fracture as noted above, alopecia, rheumatoid arthritis, hypertension, hypothyroidism, anxiety disorder. PAST SURGICAL HISTORY: Two surgeries on the left hip previously, . ALLERGIES: CODEINE. MEDICATIONS: Citalopram. Hydroxychloroquine. Lisinopril. Promethazine. Aspirin. Tylenol. Hydrocodone. Furosemide. Levothyroxine. Potassium. REVIEW OF SYSTEMS: Patient denies fevers, chills, shortness of breath or any changes other than noted in the HPI. Ten point review of systems is negative. PHYSICAL EXAMINATION: VITAL SIGNS: She is tachycardic with heart rate of 107, BP 134/72, temp afebrile at 98.5, pulse ox 97% on room air. LEFT LOWER EXTREMITY: Reveals dressing in place, clean, dry and intact. Left lower extremity is a bit swollen, but her foot is warm and well perfused. Sensation is intact to light touch. She is actually most comfortable in a seated position in a chair. Range of motion deferred given known dislocation fracture. LABORATORY DATA: CBC with white count of 9.0, H&H 10.5 and 31.3 with platelet count of 523,000, INR 0.9. Sodium 131, chloride 94, creatinine 0.7, glucose 107. IMAGING: Plain radiographs of her left hip demonstrate dislocation of acetabular cup with two screws. There is also a separation of components of the dual mobility cup. She also has an ultrasound with no formal report back. She had a CT scan that demonstrates the same dislocation of left total hip arthroplasty with the acetabular cup dissociated from the acetabulum itself with two screws. It appears to have transverse fractures of the medial wall. ASSESSMENT AND PLAN: A 66-year-old female who is almost 1 week status post left total hip arthroplasty after converting from a failed cephalomedullary nail device for a femoral neck fracture with a dislocation fracture. I discussed this with her. She is relatively uncomfortable. She has multiple medical comorbidities We discussed that I personally am not able to fix this fracture dislocation but will discuss this further with the operating surgeon and see if he feels comfortable with a revision type surgery. Currently, she is relatively uncomfortable. There is no traction bow device in the hospital and she is most comfortable in a seated position. She is non-weightbearing. We will do a combination of muscle relaxants and pain medications to control her pain, potentially consider a block by Anesthesia as this was quite difficult to control at her prior visit as well about a week ago. I discussed this with her. She understands. We will develop a plan once discussed with operating surgeon. After discussio with operative surgeron, Dr. Ribeiro, he is not comfortable revising this construct. Will try to find placement for her and transfer once an accepting orthopedic surgeon located. [email or web address]:wagner Job ID: [id number] Doc ID: [id number] Scott Menard MD [facility] CENTER[facility]jo
[2021-07-19] MEDS ORDERED: CITALOPRAM 20 MG TABLET PO SCH (09:00)
[2021-07-19] MEDS: METHOCARBAMOL 1,000 MG/10 ML VIAL IV PRN ×2 (10:48→18:53)
--- NOTE | 2021-07-19 12:14 | Ultrasound Report ---
CLINICAL INFORMATION: Left leg pain and swelling. Recent left hip surgery COMPARISON: None. FINDINGS: The entire deep venous system including the common femoral, superficial femoral, popliteal and paired trifurcation calf veins are easily compressible and show normal venous blood flow on color and spectral Doppler. No evidence of thrombus IMPRESSION: Negative exam - no evidence of deep vein thrombosis. Interpreted and Authenticated by: Praful Anaya 07/19/21
--- NOTE | 2021-07-19 12:27 | XRay Report ---
CLINICAL INFORMATION: Postoperative left hip pain COMPARISON: Postoperative films five days prior-07/13/2021 FINDINGS: The acetabular prosthesis is dislodged from the [place] acetabulum and has rotated and displaced into the supra-acetabular soft tissues. The two screws, anchoring the acetabular prostheses, have migrated from a vertical to a horizontal position. The [place] bony acetabulum is now bare and appears partially eroded with a subtle nondisplaced transverse fracture. Moderate soft tissue swelling noted. The prosthetic femoral head has also dislocated superolaterally out of the prosthetic acetabulum. Right hip and SI joints are normal. IMPRESSION: Complete dislocation of left total hip prostheses with unanchoring of the prosthetic acetabulum is now rotated and dislocated into the supra-acetabular soft tissues. There is a nondisplaced transverse fracture extending transversely across the acetabulum which is not well visualized. Interpreted and Authenticated by: Praful Anaya 07/19/21
[2021-07-19] MEDS ORDERED: ROPIVACAINE HCL/PF 30 ML VIAL IJ ONE (12:30)
--- NOTE | 2021-07-19 13:02 | Procedure Note ---
Procedures - Nerve Block Nerve Block 1 Consent obtained: verbal consent Date of Procedure: 07/19/21 (Surgeon consult for pain control post fracture) Time out performed: Yes Procedure: Ultrasound guided Needle Gauge Used: 20 Injectate: ropi 0.5% Volume (ml): 30 Side: left Nerve blocks: femoral Procedure successful: Yes Patient tolerated procedure: well, no complications Ultrasound Guided Nerve Procedure: Relevant anatomy identified (N,A,V), Local anesthetic: Spread visualized, Vascular puncture avoided Complications: none Additional comments: pain control consult from Dr mc, post fracture, s/p complex left hip fracture repair by Dr Ribeiro, pt now with new fracture from ?fall? unable to achieve adequate pain control with IVMeds my plan was for SHANI block but unable to visualize anatomy due to patient positioning/discomfort and large amount of swelling in the area. secondary plan for high volume femoral nerve block, performed without sedation, no complication s, pt reports pain relief within 5-7 minutes. thank you for this consult TIFFANY
[2021-07-19] MEDS: 0.9 % SODIUM CHLORIDE 10 ML SYRINGE IV SCH ×2 (14:05→21:36)
--- NOTE | 2021-07-19 15:03 | Cat Scan Report ---
CLINICAL INFORMATION: Trauma. Recent left total hip prosthesis placement COMPARISON: None. TECHNIQUE: 0.625 mm helical slices were obtained from the mid L4 through the subtrochanteric regions. Following reconstruction, 2.5 mm sagittal, coronal and axial reformations were processed. The exam was reviewed in bone and soft tissue windows. The exam was performed using radiation dose optimization techniques including, but not limited to, automated exposure control, adjustment of mA and/or kV according to patient size and use of iterative reconstruction technique. FINDINGS: The prosthetic acetabulum has dislodged from the [place] acetabulum and is now displaced 4 cm into the superolateral periacetabular soft tissues. The prosthesis is also rotated laterally. A mildly comminuted, minimally displaced right acetabular fracture is noted. A fragment of the superior lateral acetabulum has migrated with the displaced prosthetic acetabulum. In addition, the prosthetic femoral head is dislocated laterally from the prosthetic acetabulum. A moderately comminuted and minimally displaced chronic appearing fracture of the left intertrochanteric proximal femur extending into the diaphysis appreciated. Moderate edema is noted in the surgical site and the surrounding musculature. The right hip and SI joints are normal with alignment without abnormality. The urinary bladder is normal. Uterus and ovaries appear to be surgically absent. Small large bowel are grossly normal. IMPRESSION: 1. Complete dislodgment and separation from the left acetabular prostheses from the [place] acetabulum. It is displaced 4 cm in the superior lateral periacetabular soft tissues. There is an associated acute moderately comminuted, minimally displaced acetabular fracture. A superior lateral acetabular fragment is migrated with the prosthetic acetabulum 2. Subluxation of the total hip with lateral displacement of the prosthetic femoral head to the prosthetic acetabulum. 3. Chronic minimally displaced left intertrochanteric fracture extending into the left femoral diaphysis. Interpreted and Authenticated by: Praful Anaya 07/19/21
[2021-07-19] MEDS: HYDROmorphone 1 MG/ML SYRINGE IV PRN ×3 (17:20→21:30)
[2021-07-19] MEDS ORDERED: HYDROcodone/APAP 10/325MG TABLET PO PRN (17:29)
[2021-07-19] MEDS ORDERED: LEVOTHYROXINE 75 MCG TABLET PO SCH (21:00)
[2021-07-19] MEDS ORDERED: ENOXAPARIN 40 MG/0.4 ML SYRINGE SQ ONE (21:16)
[2021-07-19] MEDS ORDERED: LORazepam 1 MG TABLET PO PRN (21:44)
[2021-07-19] MEDS ORDERED: POLYETHYLENE GLYCOL 3350 17 GM PACKET PO PRN (22:00)
[2021-07-20] MEDS: HYDROmorphone 1 MG/ML SYRINGE IV PRN (00:37)
== END 2021-07-20 02:20 | disposition short-term general hospital (02) | DRG 559 ==
LOC: ED 22:37 → MEDSUR 07-19 02:39
PROVIDERS: ADMIT Orthopaedic Surgery; ATTEND Orthopaedic Surgery

== ENCOUNTER 2022-10-17 15:11 | Inpatient (IN) ==
--- NOTE | 2022-10-17 16:51 | Emergency Department Note ---
HPI General Chief complaint: Extremity Injury, Lower Stated complaint: L hip dislocated Time Seen by Provider: 10/17/22 16:51 Source: patient Mode of arrival: ambulatory Limitations: no limitations History of Present Illness HPI Narrative: Narrative: 67-year-old female presents emerged department because of a left dislocated hip of 2 weeks duration or longer. Patient had surgery in [place]. Has been the last 2 weeks on the couch. Today she went to orthopedic office for an x-ray. X-ray revealed an anterior dislocation. Patient was referred to the ER for further care. Patient rated her pain as a 3 on a scale of 1-10. Stated the pain was constant. Nothing made it better but movement could make it worse. No associated numbness or tingling in the feet. No radiation of the pain to the back. She refused pain medications. Patient did states she had swelling in the left thigh. Related Data Home Medications Medication Instructions Recorded Confirmed citalopram 40 mg tablet 40 mg PO QDAY 12/24/15 07/19/21 hydroxychloroquine 200 mg tablet 200 mg PO QDAY 12/24/15 07/19/21 lisinopril 20 1 tab PO QDAY 12/24/15 07/19/21 mg-hydrochlorothiazide 25 mg tablet pantoprazole 20 mg tablet,delayed 20 mg PO QDAY 12/24/15 07/19/21 release promethazine 25 mg tablet 25 mg PO TIDP PRN Nausea 12/24/15 07/19/21 cyclobenzaprine 10 mg tablet 10 mg PO PRN PRN Muscle Spasm 07/12/21 07/19/21 levothyroxine 75 mcg capsule 75 mcg PO QDAY 07/12/21 07/19/21 potassium chloride 10 mEq 10 meq PO BID 07/12/21 07/19/21 capsule,extended release furosemide 20 mg tablet (Lasix) 20 mg PO PRN PRN edema 07/19/21 07/19/21 magnesium hydroxide 400 mg/5 mL 30 ml PO PRN PRN Constipation 07/19/21 07/19/21 oral suspension (Milk of Magnesia) methocarbamol 500 mg tablet 1,000 mg PO QID 07/19/21 07/19/21 methocarbamol 750 mg tablet 750 mg PO QIDP PRN Pain 07/19/21 07/19/21 Previous Rx's Medication Instructions Recorded acetaminophen 500 mg tablet 1,000 mg PO Q6H PRN pain #60 tabs 05/02/21 cephalexin 500 mg capsule 500 mg PO QID #20 caps 06/18/21 aspirin 81 mg tablet,delayed 81 mg PO BID #60 tabs 07/13/21 release (Jermaine Low Dose Aspirin) hydrocodone 10 mg-acetaminophen 1 - 2 tab PO Q4H PRN Pain #60 tabs 07/13/21 325 mg tablet Allergies Allergy/AdvReac Type Severity Reaction Status Date / Time codeine AdvReac Mild Vomiting Verified 10/17/22 15:29 Review of Systems ROS ROS Narrative: Narrative: All systems ED: reviewed and negative except as stated. PFSH Narrative Patient History Narrative: Narrative: Medical/Surgical/Family History All Active Problems (Updated 10/17/22 @ 20:08 by Hector Mejias MD) Cellulitis (Acute) Failed hardware (Acute) Hip fracture (Acute) Dislocation, hip closed (Acute) Acetabular fracture (Acute) Anterior dislocation of left hip (Acute) Edema of both lower legs (Acute) Dental abscess (Acute) Fracture of femoral neck, left (Acute) Arthralgia (Chronic) Alopecia (Chronic) Antinuclear factor positive (Chronic) Yeast infection of the vagina (Chronic) UTI (urinary tract infection) (Chronic) Gastroparesis (Chronic) White coat hypertension (Chronic) Systemic lupus erythematosus (Chronic) Rheumatoid arthritis (Chronic) Osteoporosis (Chronic) GERD (gastroesophageal reflux disease) (Chronic) Hypothyroidism (Chronic) Electrolyte imbalance (Chronic) Vitamin D deficiency (Chronic) Anxiety (Chronic) Depression (Chronic) Rash (Chronic) Leg weakness, bilateral (Chronic) Leg pain, bilateral (Chronic) Medical History Alopecia Antinuclear factor positive Anxiety Arthralgia Closed fracture of left hip requiring operative repair Depression Edema of both lower legs Electrolyte imbalance Gastroparesis GERD (gastroesophageal reflux disease) Hypothyroidism Leg pain, bilateral Leg weakness, bilateral Osteoporosis Rash Rheumatoid arthritis Systemic lupus erythematosus UTI (urinary tract infection) Vitamin D deficiency White coat hypertension Yeast infection of the vagina Surgical History History of section 1975, 1981, 1982 & 1988 Family History Mother Muscular wasting and disuse atrophy Father Muscular wasting and disuse atrophy Unknown Diabetes mellitus Alcoholism Social History Smoking Status: Never smoker Alcohol Intake Frequency: holiday/special occasion only Substance Use: does not use Exam Narrative Narrative: Narrative: Left hip and left lower extremity: The left lower extremity was foreshortened several centimeters and internally rotated. There was significant edema in the thigh of the left lower extremity. Patient flex and extend her ankle and her toes. She stated that sensation was normal when I examined her. Circulation was good. General Limitations: no limitations General appearance: Present alert and in distress; Absent anxious Head Head: Present atraumatic and normocephalic Eye Eye: Present normal appearance; Absent scleral icterus ENT ENT: Present normal oropharynx and other (Mallampati 1) Neck Neck: Present normal inspection, full ROM and trachea midline Respiratory Respiratory: Present normal lung sounds bilaterally; Absent respiratory distress Cardiovascular Cardiovascular: Present normal rhythm and tachycardia Adbominal Abdominal: Present soft; Absent tenderness Extremities Extremities: Present other (See above) Neurological Neurological: Present alert and oriented X3 Psychiatric Psychiatric: Present normal affect and normal mood Skin Skin: Present warm (WNL) and dry Course Consultations Consultation #2: Advised Dr. Lennon that I was unable to relocate the hip. He is requested nursing this does come in and he will work with a nurse well treatment offsider to relocate the hip. Time: 19:14 Vital Signs Vital signs: Vital Signs Temperature 98.9 F 10/17/22 15:15 Pulse Rate 98 H 10/17/22 15:15 Respiratory Rate 18 10/17/22 15:15 Blood Pressure 132/66 10/17/22 15:15 Pulse Oximetry (%) 100 10/17/22 15:15 Oxygen Delivery Method Room Air 10/17/22 15:15 Temperature 98.6 F 10/17/22 21:46 Pulse Rate 76 10/17/22 21:46 Respiratory Rate 11 L 10/17/22 21:46 Blood Pressure 93/54 10/17/22 21:45 Pulse Oximetry (%) 100 10/17/22 21:46 Oxygen Delivery Method Oxymask 10/17/22 21:46 Oxygen Flow Rate (L/min) 6 10/17/22 21:50 [facility] Narrative Medical decision making narrative: Narrative: Elderly female with dislocated left hip by x-ray obtained as an outpatient today. Differential includes anterior dislocation, posterior dislocation, cellulitis with swelling, other Case was discussed with orthopedics who recommended attempt at relocation. White count was normal at 7 hemoglobin was low at 8.4. 15 months ago it was 10.5. Electrolytes were normal. Glucose was normal. BUN and creatinine were normal. After consent was obtained I administered 200 mg of propofol to the patient and then attempted reduction using modified Allis maneuver and also attempting using a Captain Darren maneuver. I was unsuccessful in both attempts. I contacted Dr. Lennon who agreed to come to the ER to attempt reduction and he requested that nurse well treatment offsider be contacted to come to the ER. Sepsis Sepsis Identified: No Lab Data 10/17/22 17:40 Labs: Lab Results 10/17/22 10/17/22 Range/Units 17:27 17:40 WBC 7.0 (4.5-11.0) K/mcL RBC 3.00 L (3.59-5.38) M/mcL Hgb 8.4 L (11.2-15.7) g/dL Hct 26.2 L (34.1-44.9) % POC Hct 27.0 L (36-48) MCV 87.3 (80.0-100.0) fL MCH 28.0 (26.0-34.0) pg MCHC 32.1 (31.0-36.0) g/dL RDW 13.7 (11.5-14.5) % Plt Count 567 H (140-440) K/mcL MPV 8.5 L (8.8-12.5) fL Immature Gran % (Auto) 0.3 (0.0-0.5) % Neut % (Auto) 61.1 (38.0-78.0) % Lymph % (Auto) 24.1 (15.5-49.0) % [place] % (Auto) 10.1 (1.0-12.0) % Eos % (Auto) 3.4 (0.0-7.0) % Baso % (Auto) 1.0 (0.0-2.0) % Lymph # (Auto) 1.68 (1.50-4.80) K/mcL [place] # (Auto) 0.70 (0.10-0.90) K/mcL Eos # (Auto) 0.24 (0.00-0.70) K/mcL Baso # (Auto) 0.07 (0.00-0.30) K/mcL Immature Gran # 0.02 (0.00-0.05) K/mcl Absolute Neutrophils 4.25 (1.80-8.00) K/mcL POC Sodium 137 (133-145) POC Potassium 4.0 (3.3-5.1) POC Chloride 102 (96-108) POC Total CO2 27.0 (22-30) POC BUN 20 (6-20) POC Creatinine 1.0 (0.6-1.2) POC Glucose 88 (70-105) POC WB Ioniz Calcium 1.14 L (1.16-1.32) Discharge Plan Patient/Caregiver Discharge Instructions Pt seen by SERVER SOFTWARE ENGINEER/PA only: No Clinical Impression: Anterior dislocation of left hip Qualifiers: Encounter type: initial encounter Qualified Code(s): S73.035A - Other anterior dislocation of left hip, initial encounter Patient Disposition: Xfer As Outpt/Obs ([facility]) Condition: Fair Discharge Date/Time: 10/17/22 20:35
[2022-10-17 17:31] LABS: POC Calcium, Ionized 1.14 (1.16-1.32)
[2022-10-17 18:24] LABS: Basophils # (Auto) 0.07 K/mcL (0.00-0.30); Eosinophils # (Auto) 0.24 K/mcL (0.00-0.70); Eosinophils % (Auto) 3.4 % (0.0-7.0); Hematocrit 26.2 % (34.1-44.9); Hemoglobin 8.4 g/dL (11.2-15.7); Lymphocytes # (Auto) 1.68 K/mcL (1.50-4.80); Lymphocytes % (Auto) 24.1 % (15.5-49.0); Mean Cell Volume 87.3 fL (80.0-100.0); Mean Corpuscular HGB Conc 32.1 g/dL (31.0-36.0); Mean Platelet Volume 8.5 fL (8.8-12.5); Monocytes % (Auto) 10.1 % (1.0-12.0); Neutrophils % (Auto) 61.1 % (38.0-78.0); Platelet Count 567 K/mcL (140-440); Red Cell Distribution Width 13.7 % (11.5-14.5)
[2022-10-17] MEDS ORDERED: PROPOFOL 200 MG/20 ML VIAL IV ONE ×3 (18:38→20:45)
[2022-10-17] MEDS ORDERED: ONDANSETRON 4 MG/2 ML VIAL IV ONE (18:39)
[2022-10-17] MEDS ORDERED: morphine 4 MG/ML VIAL IV ONE (19:07)
[2022-10-17] MEDS ORDERED: SUCCINYLCHOLINE 20 MG/ML ML IV ONE (19:45)
--- NOTE | 2022-10-17 20:11 | Emergency Department Note ---
Course Course Course Narrative: I assumed care of patient at 1900 pending evaluation by orthopedic surgeon. Dr. Lennon evaluate the patient and attempted to reduce patient stable under general anesthesia with [employer]UC[employer] at bedside with no success. Dr. Lennon will be taken the patient to the OR for reduction of hip dislocation. Vital Signs Vital signs: Vital Signs Temperature 98.9 F 10/17/22 15:15 Pulse Rate 98 H 10/17/22 15:15 Respiratory Rate 18 10/17/22 15:15 Blood Pressure 132/66 10/17/22 15:15 Pulse Oximetry (%) 100 10/17/22 15:15 Oxygen Delivery Method Room Air 10/17/22 15:15 Temperature 98.9 F 10/17/22 15:15 Pulse Rate 108 H 10/17/22 19:27 Respiratory Rate 21 10/17/22 19:27 Blood Pressure 148/58 10/17/22 19:03 Pulse Oximetry (%) 99 10/17/22 19:27 Oxygen Delivery Method Room Air 10/17/22 15:15 MDM MDM Narrative Medical decision making narrative: Narrative: Differential Diagnosis Differential Diagnosis: Hip dislocation Medical Records Medical records reviewed: Yes I reviewed the patient's medical records. Lab Data 10/17/22 17:40 Labs: Lab Results 10/17/22 10/17/22 Range/Units 17:27 17:40 WBC 7.0 (4.5-11.0) K/mcL RBC 3.00 L (3.59-5.38) M/mcL Hgb 8.4 L (11.2-15.7) g/dL Hct 26.2 L (34.1-44.9) % POC Hct 27.0 L (36-48) MCV 87.3 (80.0-100.0) fL MCH 28.0 (26.0-34.0) pg MCHC 32.1 (31.0-36.0) g/dL RDW 13.7 (11.5-14.5) % Plt Count 567 H (140-440) K/mcL MPV 8.5 L (8.8-12.5) fL Immature Gran % (Auto) 0.3 (0.0-0.5) % Neut % (Auto) 61.1 (38.0-78.0) % Lymph % (Auto) 24.1 (15.5-49.0) % [place] % (Auto) 10.1 (1.0-12.0) % Eos % (Auto) 3.4 (0.0-7.0) % Baso % (Auto) 1.0 (0.0-2.0) % Lymph # (Auto) 1.68 (1.50-4.80) K/mcL [place] # (Auto) 0.70 (0.10-0.90) K/mcL Eos # (Auto) 0.24 (0.00-0.70) K/mcL Baso # (Auto) 0.07 (0.00-0.30) K/mcL Immature Gran # 0.02 (0.00-0.05) K/mcl Absolute Neutrophils 4.25 (1.80-8.00) K/mcL POC Sodium 137 (133-145) POC Potassium 4.0 (3.3-5.1) POC Chloride 102 (96-108) POC Total CO2 27.0 (22-30) POC BUN 20 (6-20) POC Creatinine 1.0 (0.6-1.2) POC Glucose 88 (70-105) POC WB Ioniz Calcium 1.14 L (1.16-1.32) Radiology Data Radiology results reviewed: Yes I reviewed the patient's radiology results. Radiology results narrative: X-ray of the hip obtained with image reviewed myself, agree with radiologist interpretation Core Measures AMI Core Measures Followed: Yes Discharge Plan Patient/Caregiver Discharge Instructions Pt seen by REVERBERATORY SKIMMER/PA only: No Clinical Impression: Anterior dislocation of left hip Instructions: Hip Dislocation (ED) Patient Disposition: Xfer As Outpt[facility]Obs ([facility]) Condition: Fair Follow up with: Diane Weldon ARNP [Primary Care Provider] - Prescriptions: No Action citalopram 40 mg tablet 40 mg PO QDAY pantoprazole 20 mg tablet,delayed release (DR/EC) 20 mg PO QDAY promethazine 25 mg tablet 25 mg PO TIDP PRN (Reason: Nausea) lisinopril-hydrochlorothiazide 20-25 mg tablet 1 tab PO QDAY hydroxychloroquine 200 mg tablet 200 mg PO QDAY acetaminophen 500 mg tablet 1,000 mg PO Q6H PRN (Reason: pain) Qty: 60 0RF cephalexin 500 mg capsule 500 mg PO QID Qty: 20 0RF cyclobenzaprine 10 mg tablet 10 mg PO PRN PRN (Reason: Muscle Spasm) potassium chloride 10 mEq Capsule, Extended Release 10 meq PO BID levothyroxine 75 mcg Capsule 75 mcg PO QDAY hydrocodone-acetaminophen 10-325 mg Tablet 1 - 2 tab PO Q4H PRN (Reason: Pain) Qty: 60 0RF aspirin [Jermaine Low Dose Aspirin] 81 mg Tablet,Delayed Release (Dr/Ec) 81 mg PO BID Qty: 60 0RF magnesium hydroxide [Milk of Magnesia] 400 mg/5 mL Suspension 30 ml PO PRN PRN (Reason: Constipation) methocarbamol 750 mg tablet 750 mg PO QIDP PRN (Reason: Pain) methocarbamol [Robaxin] 500 mg Tablet 1,000 mg PO QID furosemide [Lasix] 20 mg tablet 20 mg PO PRN PRN (Reason: edema)
[2022-10-17] MEDS ORDERED: BISACODYL 10 MG SUPP.RECT PR PRN (20:41)
[2022-10-17] MEDS ORDERED: MAGNESIUM HYDROXIDE 30 ML ORAL.SUSP PO PRN (20:41)
[2022-10-17] MEDS ORDERED: TRANEXAMIC ACID 1,000 MG/10 ML VIAL IV ONE (20:41)
[2022-10-17] MEDS ORDERED: FLEETS ADULT ENEMA PR PRN (20:41)
[2022-10-17] MEDS ORDERED: ONDANSETRON 4 MG/2 ML VIAL IV PRN ×3 (20:41→20:59)
[2022-10-17] MEDS ORDERED: TEMAZEPAM 15 MG CAPSULE PO PRN (20:41)
[2022-10-17] MEDS ORDERED: ACETAMINOPHEN 325 MG TABLET PO PRN (20:41)
[2022-10-17] MEDS ORDERED: POLYETHYLENE GLYCOL 3350 17 GM PACKET PO PRN (20:41)
--- NOTE | 2022-10-17 20:41 | Brief Operative Note ---
Brief Operative Note Date of procedure: 10/17/22 Pre-op diagnosis: left hip anterior chronic dislocation Post-op diagnosis: same Procedure: left hip closed reduction under anaesthesia Grafts/Implants: Yes Anesthesia: GETA Findings: anterior dislocation Complications: none Surgeon: Marc Presley Estimated blood loss (cc): 0 Specimens Removed/Pathology: none sent Condition: stable Disposition: PACU
[2022-10-17] MEDS ORDERED: HYDROmorphone 1 MG/ML SYRINGE ONE (20:45)
[2022-10-17] MEDS ORDERED: ROPIVACAINE HCL/PF 30 ML VIAL IJ ONE (20:45)
[2022-10-17] MEDS ORDERED: fentaNYL 100 MCG/2 ML VIAL IV ONE (20:45)
[2022-10-17] MEDS ORDERED: KETAMINE 50 MG/ML Syringe (ANEST) IV ONE (20:45)
[2022-10-17] MEDS ORDERED: ROCURONIUM 10 MG/ML ML IV ONE (20:45)
[2022-10-17] MEDS ORDERED: SUGAMMADEX SODIUM 200 MG/2 ML VIAL IV ONE (20:45)
[2022-10-17] MEDS ORDERED: IPRATROPIUM/ALBUTEROL 3 ML AMPUL.NEB NEB PRN (20:59)
[2022-10-17] MEDS ORDERED: METHOCARBAMOL 1,000 MG/10 ML VIAL IV PRN (20:59)
[2022-10-17] MEDS ORDERED: ACETAMINOPHEN 1,000 MG/100 ML BAG IV ONE ×2 (20:59→21:13)
[2022-10-17] MEDS ORDERED: NALOXONE HCL 0.4 MG/ML VIAL IV PRN (20:59)
[2022-10-17] MEDS ORDERED: fentaNYL 100 MCG/2 ML VIAL IV PRN (20:59)
[2022-10-17] MEDS ORDERED: HYDROmorphone 0.5 MG/0.5 ML SYRINGE IV PRN (20:59)
[2022-10-17] MEDS ORDERED: MEPERIDINE 25 MG/ML VIAL IV PRN (20:59)
[2022-10-17] MEDS ORDERED: diphenhydrAMINE 50 MG/ML VIAL IV PRN (20:59)
[2022-10-17] MEDS ORDERED: PROMETHAZINE 25 MG/ML VIAL IV PRN (20:59)
--- NOTE | 2022-10-17 22:02 | Consultation ---
DATE OF CONSULTATION: 10/17/2022 HISTORY OF PRESENT ILLNESS: A 67-year-old female complains of left hip pain. This has been an anterior dislocated. She has had an attempted reduction here in the emergency room by the ER physician, was unsuccessful. The hip was anteriorly dislocated with leg shortened and externally rotated. She states the hip has not been able to be walked on since the time of surgery. Her surgery was done on 07/25/2022 and has not really been mobile since. She has been able to walk on her toes only but with significant pain. She does not recall an event where it dislocated, was seen at [facility] by Efren Stevens. She was x-rayed and showed an anterior dislocation of the hip. She was referred to the emergency room for reduction. Though this is a chronic problem, she is chronically shortened, this may not be able to be reduced closed. She understands this. She is in quite a bit of pain after the attempted reduction but has agreed to proceed with another reduction. PAST MEDICAL HISTORY: She has had four surgeries on this left hip by different providers, the last of which was in [place]. REVIEW OF SYSTEMS: She has no active chest pain, no shortness of breath, no recent falls. MEDICATIONS: See intake form. PHYSICAL EXAMINATION: General: Very pleasant 67-year-old female who is in quite a bit of pain but gives verbal consent. She is alert, cooperative, moving her fingers without difficulty. No neck pain. Extremities: The left leg is short and externally rotated and shortened by about 4 inches compared to the other side. When looking at her shoes, she has had a buildup of about 2 inches on the left leg, stating this equaled her leg length or felt like it did so. The chronicity of the problem is unknown. Lungs: Clear. She talks without difficulty. No shortness of breath. No active chest pain. Cardiovascular: Her heart rate is tachy but regular rhythm. No murmurs heard. Abdomen: Soft, nontender. Extremities: The left leg has chronic erythema in the lower extremity. No necrosis. Rather this is chronic venous stasis with pitting edema is present with good capillary refill into the toes within 2 seconds, somewhat sluggish on capillary refill. She can move her toes but cannot move her foot up and down without severe pain, unwilling to do so. There were no erythema or induration around the hip. IMAGING: X-ray of the left hip show two views. An anterior hip dislocation with a bipolar head. Well positioned implants and secure. Bone quality is poor. No fracture but anterior dislocation. Treatment as described to the patient will be sedation with a closed reduction and then imaging to see if this can be done without surgery. She agrees to proceed, understanding the risks and benefits. Heart attack and stroke are always possible with any anesthesia, fractures of the femur are possible as well. She has been very unhappy with her hip since its initial injury and has not been able to get good pain relief. She may still have pain after the reduction providing emergency services only and not long-term care. RBH:hubert Job ID: [id number] Doc ID: [id number] Marc Presley MD
[2022-10-17] MEDS ORDERED: DIAZEPAM 10 MG/2 ML SYRINGE IV ONE (22:30)
[2022-10-18] MEDS: ASPIRIN 81 MG TAB.CHEW CHEWED SCH ×3 (00:01→20:29)
[2022-10-18] MEDS: DOCUSATE SODIUM 100 MG CAPSULE PO SCH ×3 (00:01→20:20)
[2022-10-18] MEDS: SENNOSIDES 1 TABLET PO SCH ×2 (00:01→20:20)
[2022-10-18] MEDS: 0.45 % SODIUM CHLORIDE 1,000 ML IV SCH ×4 (00:02→18:00)
[2022-10-18] MEDS: 0.9 % SODIUM CHLORIDE 10 ML SYRINGE IV SCH ×4 (00:17→20:19)
[2022-10-18] MEDS: HYDROmorphone 1 MG/ML SYRINGE IV PRN ×3 (01:46→18:48)
[2022-10-18] MEDS: HYDROcodone/APAP 10/325MG TABLET PO PRN ×6 (04:15→22:04)
--- NOTE | 2022-10-18 07:59 | Operative Note ---
DATE OF OPERATION: 10/17/2022 DATE OF PROCEDURE: 10/17/2022 PREOPERATIVE DIAGNOSIS: Left hip chronically anteriorly dislocated. POSTOPERATIVE DIAGNOSIS: Left hip chronically anteriorly dislocated. PROCEDURE: Left hip closed reduction under Diprivan and a paralytic. SURGEON: Marc Presley M.D. SURGERY AIDE: Hospital staff in the Emergency Room. COMPLICATIONS: None. ESTIMATED BLOOD LOSS: None. No incisions were made. DESCRIPTION OF PROCEDURE: The patient was brought to a telemetry bed. Dm Salinas CRNA put the patient to sleep with Diprivan. We tried to reduce the hip; very little motion was achieved using significant traction. At this point, the patient was paralyzed. An attempt at closed reduction did not achieve a reduction. Leg length was still shortened and externally rotated. At this point, the determination that we needed a fracture table was made. The patient noted that this is probably chronically dislocated. We will slowly try to reduce this and if not, she will have to go back to her primary surgeon as a revision of this would be beyond the scope of my practice. She agrees to proceed with general anesthesia with a fracture table reduction attempt. RBH:wagner Job ID: [id number] Doc ID: [id number] Marc Presley MD
--- NOTE | 2022-10-18 08:02 | Operative Note ---
DATE OF OPERATION: 10/17/2022 PREOPERATIVE DIAGNOSIS: Left hip anterior dislocation. POSTOPERATIVE DIAGNOSIS: Left hip anterior dislocation. PROCEDURE: Closed reduction of the left hip unsuccessful on fracture table. SURGEON: Marc Presley M.D. E BUSINESS CONSULTANT: Hospital staff. ESTIMATED BLOOD LOSS: None. No incisions made. DESCRIPTION OF PROCEDURE: The patient was brought to the operating room, put to sleep with general LMA anesthesia. Left leg was then placed into the fracture table. The feet both in equinus varus for chronic nonwalking, were placed into small boots attached to the table and wrapped with Coban. These were locked into place. We then applied traction to both lower extremities and using C-arm image we confirmed that we had adequate length to reduce the hip on the left side, but the hip would not go into place. We accomplished this twice without successful reduction. She has heterotopic bone and a chronic dislocation. The treatment for this will need to be an open procedure by her surgeon of record. At this point, we were unable to successfully reduce this. We will put the patient in overnight for pain control and she will be discharged to be able to visit her prior surgical surgeon. She has had three surgeons attempt surgery on this hip. At this point, I am unable to accomplish the reduction and the complexity of this case would be beyond the scope of my practice. RBH:kh Job ID: [id number] Doc ID: [id number] Marc Presley MD
--- NOTE | 2022-10-18 08:14 | XRay Report ---
HISTORY: FINDINGS: IMPRESSION: 0.3 minutes of fluoroscopy time was used. Interpreted and Authenticated by: Juan Díaz 10/18/22
[2022-10-19] MEDS: HYDROmorphone 1 MG/ML SYRINGE IV PRN ×4 (01:59→22:23)
[2022-10-19] MEDS: 0.45 % SODIUM CHLORIDE 1,000 ML IV SCH ×2 (02:33→12:28)
[2022-10-19] MEDS: HYDROcodone/APAP 10/325MG TABLET PO PRN ×5 (06:03→22:26)
[2022-10-19] MEDS: DOCUSATE SODIUM 100 MG CAPSULE PO SCH ×2 (08:33→20:32)
[2022-10-19] MEDS: ASPIRIN 81 MG TAB.CHEW CHEWED SCH ×2 (08:33→20:31)
[2022-10-19] MEDS ORDERED: MAGNESIUM HYDROXIDE 30 ML ORAL.SUSP PO PRN ×2 (18:46→18:48)
[2022-10-19] MEDS ORDERED: diphenhydrAMINE 25 MG CAPSULE PO ONE (18:46)
--- NOTE | 2022-10-19 18:46 | Orthopedic Progress Note ---
SUBJECTIVE Subjective Patient information: Note initiated : 10/19/22 at 6:37 pm Service Date, if different from initiated Date: [] Patient: Paula Hollis 67 y/o F admitted on 10/18/22 for L hip dislocated. 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 inhibitiing re Constitutional Vitals: Vital Signs Temp Pulse Resp BP Pulse Ox O2 Del Method O2 Flow Rate 98.6 F 91 H 16 118/66 98 Nasal Cannula 2 10/19/22 16:00 10/19/22 16:00 10/19/22 16:00 10/19/22 16:00 10/19/22 16:00 10/19/22 16:00 10/19/22 16:00 Period Temp Pulse Resp BP Sys/Hurley Pulse Ox O2 Del Method O2 Flow Rate Last 24 Hr 97.7 F-98.6 F 77-97 16-17 95-118/51-66 92-98 Nasal Cannula- Nasal Cannula 1-3 Intake and Output 10/19/22 10/19/22 10/19/22 03:59 11:59 19:59 Intake Total 120 120 240 Output Total 200 175 Balance -80 120 65 Intake & Output: Intake & Output 10/19/22 10/19/22 10/19/22 03:59 11:59 19:59 Intake Total 120 120 240 Output Total 200 175 Balance -80 120 65 Intake: Oral 120 240 Tube Feeding 120 Output: Void Amount 200 175 Other: Meal Breakfast Percent of Meal Consumed 20 25% Feeding Ability Independent Independent Urine Appearance Clear Clear Urine Color Dark Yellow Dark Yellow Urine Odor Normal Normal # Voids 1 General appearance: no acute distress Head Head exam: Present atraumatic Expanded Lower Extremity Exam Hip exam: Present deformity, external rotation, pelvic stability, swelling and tenderness OBJ DATA Labs 10/17/22 17:40 Labs: Abnormal Lab Results 10/17/22 10/17/22 17:40 17:27 RBC 3.00 L Hgb 8.4 L Hct 26.2 L POC Hct 27.0 L Plt Count 567 H MPV 8.5 L POC WB Ioniz Calcium 1.14 L Meds: Medications Acetaminophen (Acetaminophen 325 Mg Tablet) 650 mg PO Q6HP PRN; Protocol PRN Reason: Per Pain Protocol/Fever > 101 Hydrocodone Bitart/Acetaminophen (Hydrocodone/Apap 10/325mg Tablet) 1 - 2 tab PO Q4HP PRN; Protocol PRN Reason: Per Pain Protocol Last Admin: 10/19/22 17:22 Dose: 1 tab Aspirin (Aspirin 81 Mg Tab.Chew) 81 mg CHEWED BID [facility] Last Admin: 10/19/22 08:33 Dose: 81 mg Bisacodyl (Bisacodyl 10 Mg Supp.Rect) 10 mg VA Q2-3DAYS PRN PRN Reason: Constipation Docusate Sodium (Docusate Sodium 100 Mg Capsule) 100 mg PO BID [facility] Last Admin: 10/19/22 08:33 Dose: 100 mg Hydromorphone HCl (Hydromorphone 1 Mg/Ml Syringe) 0.5 - 2 mg IV Q2HP PRN; Protocol PRN Reason: Per Pain Protocol Last Admin: 10/19/22 08:33 Dose: 1 mg Sodium Chloride (Sodium Chloride 0.45%) 1,000 mls @ 100 mls/hr IV .Q10H [facility] Last Admin: 10/19/22 12:28 Dose: Not Given Magnesium Hydroxide (Magnesium Hydroxide 30 Ml Oral.Susp) 30 ml PO BIDP PRN PRN Reason: Constipation Ondansetron HCl (Ondansetron 4 Mg/2 Ml Vial) 4 mg IV Q4HP PRN; Protocol PRN Reason: Nausea And Vomiting Polyethylene Glycol (Polyethylene Glycol 3350 17 Gm Packet) 17 gm PO DAILYP PRN PRN Reason: Constipation Senna (Sennosides 1 Tablet) 2 tab PO HS [facility] Last Admin: 10/18/22 20:20 Dose: Not Given Sodium Biphosphate/Sodium Phosphate (Fleets Adult Enema) 1 dose VA Q3-4DAYS PRN PRN Reason: Constipation Temazepam (Temazepam 15 Mg Capsule) 15 mg PO HSP PRN PRN Reason: Insomnia A/P Assessment and plan (1) Dislocation, hip closed: Plan: chronic anterior dislocation unredducable even with fx table Status: Acute (2) Anterior dislocation of left hip: Plan: above Status: Acute Qualifiers: Encounter type: initial encounter Qualified Code(s): S73.035A - Other anterior dislocation of left hip, initial encounter (3) Systemic lupus erythematosus: Assessment and plan: cont with current meds Status: Chronic (4) Rheumatoid arthritis: Assessment and plan: same Status: Chronic Plan dc to [facility] Sepsis Sepsis Identified: No Time Zero: 29 min Time Spent With Patient Time: Total time spent is greater than 50% in coordination of care (as documented) at patient's floor/unit and/or counseling patient: Subsequent: Total time with patient: 25 - 34 minutes
[2022-10-19] MEDS ORDERED: FUROSEMIDE 20 MG TABLET PO PRN (18:48)
[2022-10-19] MEDS ORDERED: METHOCARBAMOL 500 MG TABLET PO PRN (18:48)
[2022-10-19] MEDS ORDERED: diphenhydrAMINE 25 MG CAPSULE ONE (20:28)
[2022-10-19] MEDS: APIXABAN 5 MG TABLET PO SCH (20:32)
[2022-10-19] MEDS: PREGABALIN 25 MG CAPSULE PO SCH (20:32)
[2022-10-19] MEDS: SENNOSIDES 1 TABLET PO SCH (20:32)
[2022-10-19] MEDS: FAMOTIDINE 20 MG TABLET PO SCH (20:32)
[2022-10-19] MEDS ORDERED: ACETAMINOPHEN 500 MG TABLET PO SCH (21:00)
[2022-10-19] MEDS: hydrOXYzine 25 MG TABLET PO SCH (21:28)
[2022-10-19] MEDS: METHOCARBAMOL 500 MG TABLET PO SCH (21:31)
[2022-10-20] MEDS: 0.45 % SODIUM CHLORIDE 1,000 ML IV SCH ×3 (02:01→22:00)
[2022-10-20] MEDS: HYDROcodone/APAP 10/325MG TABLET PO PRN ×2 (05:13→14:50)
[2022-10-20] MEDS: LEVOTHYROXINE 75 MCG TABLET PO SCH (07:17)
[2022-10-20] MEDS: POTASSIUM CHLORIDE 10 MEQ TABLET PO SCH ×2 (07:17→17:30)
[2022-10-20] MEDS: PANTOPRAZOLE 40 MG TABLET PO SCH (07:19)
[2022-10-20] MEDS: APIXABAN 5 MG TABLET PO SCH ×2 (08:38→20:52)
[2022-10-20] MEDS: LISINOPRIL 20 MG TABLET PO SCH (08:38)
[2022-10-20] MEDS: METHOCARBAMOL 500 MG TABLET PO SCH ×4 (08:39→20:52)
[2022-10-20] MEDS: DOCUSATE SODIUM 100 MG CAPSULE PO SCH ×2 (08:39→20:52)
[2022-10-20] MEDS: CITALOPRAM 20 MG TABLET PO SCH (08:39)
[2022-10-20] MEDS: PREGABALIN 25 MG CAPSULE PO SCH ×3 (08:40→20:52)
[2022-10-20] MEDS: hydrOXYzine 25 MG TABLET PO SCH ×2 (08:40→20:51)
[2022-10-20] MEDS: FAMOTIDINE 20 MG TABLET PO SCH ×2 (08:40→20:52)
[2022-10-20] MEDS: HYDROXYCHLOROQUINE 200 MG TABLET PO SCH (08:40)
[2022-10-20] MEDS: HYDROmorphone 1 MG/ML SYRINGE IV PRN ×3 (08:40→17:30)
[2022-10-20] MEDS ORDERED: PANTOPRAZOLE 40 MG TABLET PO SCH (09:00)
[2022-10-20] MEDS: SENNOSIDES 1 TABLET PO SCH (20:51)
--- NOTE | 2022-10-20 21:48 | Orthopedic Progress Note ---
SUBJECTIVE Subjective Patient information: Note initiated : 10/20/22 at 9:44 pm Service Date, if different from initiated Date: [] Patient: Paula Hollis 67 y/o F admitted on 10/18/22 for L hip dislocated. 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 re Constitutional Vitals: Vital Signs Temp Pulse Resp BP Pulse Ox O2 Del Method O2 Flow Rate 98.3 F 79 16 100/59 96 Nasal Cannula 2 10/20/22 19:42 10/20/22 19:42 10/20/22 19:42 10/20/22 19:42 10/20/22 19:42 10/20/22 19:42 10/20/22 19:42 Period Temp Pulse Resp BP Sys/Hurley Pulse Ox O2 Del Method O2 Flow Rate Last 24 Hr 97.0 F-98.5 F 65-87 12-18 99-106/45-61 92-99 Nasal Cannula- Room Air 2-2 Intake and Output 10/20/22 10/20/22 10/21/22 11:59 19:59 03:59 Intake Total 480 600 Output Total 450 400 Balance 30 200 Weight 158 lb 14.4 oz Patient Weight 10/21/22 03:59 Weight 158 lb 14.4 oz Intake & Output: Intake & Output 10/20/22 10/20/22 10/21/22 11:59 19:59 03:59 Intake Total 480 600 Output Total 450 400 Balance 30 200 Weight 158 lb 14.4 oz Intake: Oral 480 600 Output: Void Amount 450 400 Other: Meal Breakfast Dinner Percent of Meal Consumed 100% 75% Feeding Ability Assist with Tray Set Up Independent Urine Appearance Clear Urine Color Yellow Yellow Urine Odor Normal Extremities Exam Extremities exam: Present normal capillary refill and Foot pink and warm Expanded Lower Extremity Exam Hip exam: Present dislocation and swelling OBJ DATA Labs 10/17/22 17:40 Meds: Medications Acetaminophen (Acetaminophen 325 Mg Tablet) 650 mg PO Q6HP PRN; Protocol PRN Reason: Per Pain Protocol/Fever > 101 Hydrocodone Bitart/Acetaminophen (Hydrocodone/Apap 10/325mg Tablet) 1 - 2 tab PO Q4HP PRN; Protocol PRN Reason: Per Pain Protocol Last Admin: 10/20/22 14:50 Dose: 1 tab Apixaban (Apixaban 5 Mg Tablet) 5 mg PO BID [facility] Last Admin: 10/20/22 20:52 Dose: 5 mg Bisacodyl (Bisacodyl 10 Mg Supp.Rect) 10 mg NV Q2-3DAYS PRN PRN Reason: Constipation Citalopram Hydrobromide (Citalopram 20 Mg Tablet) 40 mg PO DAILY [facility] Last Admin: 10/20/22 08:39 Dose: 40 mg Docusate Sodium (Docusate Sodium 100 Mg Capsule) 100 mg PO BID [facility] Last Admin: 10/20/22 20:52 Dose: 100 mg Famotidine (Famotidine 20 Mg Tablet) 20 mg PO BID [facility] Last Admin: 10/20/22 20:52 Dose: 20 mg Furosemide (Furosemide 20 Mg Tablet) 20 mg PO DAILYP PRN PRN Reason: edema Hydromorphone HCl (Hydromorphone 1 Mg/Ml Syringe) 0.5 - 2 mg IV Q2HP PRN; Protocol PRN Reason: Per Pain Protocol Last Admin: 10/20/22 17:30 Dose: 1 mg Hydroxychloroquine Sulfate (Hydroxychloroquine 200 Mg Tablet) 200 mg PO QDAY [facility] Last Admin: 10/20/22 08:40 Dose: 200 mg Hydroxyzine HCl (Hydroxyzine 25 Mg Tablet) 50 mg PO BID [facility] Last Admin: 10/20/22 20:51 Dose: 50 mg Levothyroxine Sodium (Levothyroxine 75 Mcg Tablet) 75 mcg PO QAMAC [facility] Last Admin: 10/20/22 07:17 Dose: 75 mcg Lisinopril (Lisinopril 20 Mg Tablet) 40 mg PO DAILY [facility] Last Admin: 10/20/22 08:38 Dose: 40 mg Magnesium Hydroxide (Magnesium Hydroxide 30 Ml Oral.Susp) 30 ml PO BIDP PRN PRN Reason: Constipation Magnesium Hydroxide (Magnesium Hydroxide 30 Ml Oral.Susp) 30 ml PO BIDP PRN PRN Reason: Constipation Methocarbamol (Methocarbamol 500 Mg Tablet) 1,000 mg PO QID [facility] Last Admin: 10/20/22 20:52 Dose: 1,000 mg Ondansetron HCl (Ondansetron 4 Mg/2 Ml Vial) 4 mg IV Q4HP PRN; Protocol PRN Reason: Nausea And Vomiting Pantoprazole Sodium (Pantoprazole 40 Mg Tablet) 40 mg PO QAM [facility] Last Admin: 10/20/22 07:17 Dose: 40 mg Pantoprazole Sodium (Pantoprazole 40 Mg Tablet) 40 mg PO QAMAC [facility] Last Admin: 10/20/22 07:19 Dose: Not Given Polyethylene Glycol (Polyethylene Glycol 3350 17 Gm Packet) 17 gm PO DAILYP PRN PRN Reason: Constipation Potassium Chloride (Potassium Chloride 10 Meq Tablet) 10 meq PO BIDCC [facility] Last Admin: 10/20/22 17:30 Dose: 10 meq Pregabalin (Pregabalin 25 Mg Capsule) 25 mg PO TID [facility] Last Admin: 10/20/22 20:52 Dose: 25 mg Senna (Sennosides 1 Tablet) 2 tab PO HS [facility] Last Admin: 10/20/22 20:51 Dose: 2 tab Sodium Biphosphate/Sodium Phosphate (Fleets Adult Enema) 1 dose NV Q3-4DAYS PRN PRN Reason: Constipation Temazepam (Temazepam 15 Mg Capsule) 15 mg PO HSP PRN PRN Reason: Insomnia A/P Assessment and plan (1) Dislocation, hip closed: Plan: dc to [place] for open reduction of left hip Status: Acute Plan transfer to [place] for longer term care and open reduction of left hip Sepsis Sepsis Identified: No Narrative Plan of Treatment: pt and ot therapy needed Time Spent With Patient Time: Total time spent is greater than 50% in coordination of care (as documented) at patient's floor/unit and/or counseling patient: Subsequent: Total time with patient: Less than 25 minutes
[2022-10-21] MEDS: HYDROcodone/APAP 10/325MG TABLET PO PRN ×4 (00:35→19:04)
[2022-10-21] MEDS: HYDROmorphone 1 MG/ML SYRINGE IV PRN ×4 (06:29→22:36)
[2022-10-21] MEDS: PANTOPRAZOLE 40 MG TABLET PO SCH (06:29)
[2022-10-21] MEDS: LEVOTHYROXINE 75 MCG TABLET PO SCH (06:29)
[2022-10-21] MEDS: CITALOPRAM 20 MG TABLET PO SCH (08:03)
[2022-10-21] MEDS: METHOCARBAMOL 500 MG TABLET PO SCH ×4 (08:03→20:11)
[2022-10-21] MEDS: APIXABAN 5 MG TABLET PO SCH ×2 (08:04→20:11)
[2022-10-21] MEDS: DOCUSATE SODIUM 100 MG CAPSULE PO SCH ×2 (08:04→20:11)
[2022-10-21] MEDS: POTASSIUM CHLORIDE 10 MEQ TABLET PO SCH ×2 (08:04→16:08)
[2022-10-21] MEDS: PREGABALIN 25 MG CAPSULE PO SCH ×3 (08:04→20:11)
[2022-10-21] MEDS: hydrOXYzine 25 MG TABLET PO SCH ×2 (08:05→20:11)
[2022-10-21] MEDS: HYDROXYCHLOROQUINE 200 MG TABLET PO SCH (08:05)
[2022-10-21] MEDS: FAMOTIDINE 20 MG TABLET PO SCH ×2 (08:05→20:11)
[2022-10-21] MEDS: LISINOPRIL 20 MG TABLET PO SCH (08:05)
[2022-10-21] MEDS: SENNOSIDES 1 TABLET PO SCH (20:11)
[2022-10-22] MEDS: HYDROmorphone 1 MG/ML SYRINGE IV PRN ×5 (03:51→21:49)
[2022-10-22] MEDS: HYDROcodone/APAP 10/325MG TABLET PO PRN ×4 (05:58→20:08)
[2022-10-22] MEDS: POTASSIUM CHLORIDE 10 MEQ TABLET PO SCH ×2 (07:31→16:41)
[2022-10-22] MEDS: LEVOTHYROXINE 75 MCG TABLET PO SCH (07:31)
[2022-10-22] MEDS: PANTOPRAZOLE 40 MG TABLET PO SCH (07:32)
[2022-10-22] MEDS: DOCUSATE SODIUM 100 MG CAPSULE PO SCH ×2 (08:38→20:08)
[2022-10-22] MEDS: METHOCARBAMOL 500 MG TABLET PO SCH ×4 (08:39→20:08)
[2022-10-22] MEDS: PREGABALIN 25 MG CAPSULE PO SCH ×3 (08:39→20:08)
[2022-10-22] MEDS: FAMOTIDINE 20 MG TABLET PO SCH ×2 (08:39→20:08)
[2022-10-22] MEDS: hydrOXYzine 25 MG TABLET PO SCH ×2 (08:39→20:08)
[2022-10-22] MEDS: APIXABAN 5 MG TABLET PO SCH ×2 (08:39→20:08)
[2022-10-22] MEDS: HYDROXYCHLOROQUINE 200 MG TABLET PO SCH (08:39)
[2022-10-22] MEDS: LISINOPRIL 20 MG TABLET PO SCH (08:40)
[2022-10-22] MEDS: CITALOPRAM 20 MG TABLET PO SCH (08:40)
[2022-10-22] MEDS: SENNOSIDES 1 TABLET PO SCH (20:08)
[2022-10-23] MEDS: HYDROcodone/APAP 10/325MG TABLET PO PRN ×3 (00:37→08:40)
[2022-10-23] MEDS: HYDROmorphone 1 MG/ML SYRINGE IV PRN ×3 (03:08→08:41)
[2022-10-23] MEDS: PANTOPRAZOLE 40 MG TABLET PO SCH (07:29)
[2022-10-23] MEDS: LEVOTHYROXINE 75 MCG TABLET PO SCH (07:29)
[2022-10-23] MEDS: METHOCARBAMOL 500 MG TABLET PO SCH (08:27)
[2022-10-23] MEDS: POTASSIUM CHLORIDE 10 MEQ TABLET PO SCH (08:27)
[2022-10-23] MEDS: DOCUSATE SODIUM 100 MG CAPSULE PO SCH (08:27)
[2022-10-23] MEDS: APIXABAN 5 MG TABLET PO SCH (08:28)
[2022-10-23] MEDS: HYDROXYCHLOROQUINE 200 MG TABLET PO SCH (08:28)
[2022-10-23] MEDS: hydrOXYzine 25 MG TABLET PO SCH (08:28)
[2022-10-23] MEDS: LISINOPRIL 20 MG TABLET PO SCH (08:28)
[2022-10-23] MEDS: CITALOPRAM 20 MG TABLET PO SCH (08:28)
[2022-10-23] MEDS: FAMOTIDINE 20 MG TABLET PO SCH (08:28)
[2022-10-23] MEDS: PREGABALIN 25 MG CAPSULE PO SCH (08:40)
== END 2022-10-23 09:30 | DRG 561 ==
LOC: ED 15:11 → SUR 20:35 → MEDSUR 22:44
PROVIDERS: ADMIT Orthopaedic Surgery; ATTEND Orthopaedic Surgery